=== PATIENT | male | born 1935 ===

== ENCOUNTER 2017-01-29 10:07 | Emergency (ER) | payer MEDICARE ==
[2017-01-29 10:40] VITALS: BP 142/84; PULSE 78; RESP 20; TEMP 98.4
[2017-01-29] MEDS ORDERED: Albuterol-Ipratrop 3 mg / 0.5 (3 ml) UD INH STA (10:49)
--- NOTE | 2017-01-29 10:54 | ED PDOC ---
HPI: General Adult Time Seen by Provider: 01/29/17 10:39 Chief Complaint (Nursing): Cough, Cold, Congestion History Per: Patient Additional Complaint(s): Pt. states for the past 3 weeks he's had difficulty breathing which he describes as trouble breathing through the nose. Pt. states that he's also had a cough but no fever or hemoptysis. Pt. states he's been using his albuterol nebulizer without relief. Denies chest pain, leg pain or swelling, hx of CHF/DVT /PE, sick contacts, recent travel, orthopnea, BROWNING. Past Medical History Reviewed: Historical Data, Nursing Documentation, Vital Signs Vital Signs: Last Vital Signs Temp 98.4 F 01/29/17 10:36 Pulse 78 01/29/17 12:41 Resp 20 01/29/17 10:36 BP 142/84 01/29/17 10:36 Pulse Ox 99 01/29/17 12:56 - Medical History PMH: HTN, Parkinson's Disease Denies: CHF, COPD - Surgical History Surgical History: No Surg Hx - Family History Family History: States: No Known Family Hx - Home Medications Home Medications: Ambulatory Orders Medication Instructions Recorded Bisoprolol [Zebeta] 5 mg PO DAILY 11/26/15 Carbidopa/Levodopa 25/100 mg 1 tab PO TID 11/26/15 [Sinemet] Naproxen 500 mg PO BID #30 tab 11/26/15 hydroCHLOROthiazide [Hydrodiuril] 25 mg PO DAILY 11/26/15 Albuterol HFA [Ventolin HFA 90 2 puff IH [id number] PRN #60 puff 01/29/17 mcg/actuation (8 g)] Fluticasone Propionate [Flonase] 2 spr NS DAILY PRN #1 bottle 01/29/17 Methylprednisolone [Medrol Dose 4 mg PO DAILY #21 mg 01/29/17 Pack (21 tabs)] - Allergies Allergies/Adverse Reactions: Allergies Allergy/AdvReac Type Severity Reaction Status Date / Time No Known Allergies Allergy Verified 11/26/15 12:27 Review of Systems ROS Statement: Except As Marked, All Systems Reviewed And Found Negative ENT: Positive for: Nose Congestion Respiratory: Positive for: Cough, Wheezing Physical Exam - Physical Exam Appears: Positive for: Well, Non-toxic, No Acute Distress Skin: Positive for: Normal Color, Warm. Negative for: Rash Eye Exam: Positive for: EOMI, Normal appearance, PERRL ENT: Positive for: Normal ENT Inspection, Nasal Congestion. Negative for: Sinus Pain/Drainage, Pharyngeal Erythema, Tonsillar Exudate, Tonsillar Swelling Neck: Positive for: Normal, Painless ROM Cardiovascular/Chest: Positive for: Regular Rate, Rhythm Respiratory: Positive for: Wheezing (b/l expiratory wheezing). Negative for: Decreased Breath Sounds, Accessory Muscle Use, Crackles, Rales, Rhonchi, Respiratory Distress Gastrointestinal/Abdominal: Positive for: Normal Exam, Soft. Negative for: Tenderness Back: Positive for: Normal Inspection. Negative for: L CVA Tenderness, R CVA Tenderness Extremity: Positive for: Other (diffuse tremors noted). Negative for: Pedal Edema, Calf Tenderness (or swelling b/l) Neurologic/Psych: Positive for: Alert, Oriented. Negative for: Aphasia, Facial Droop - Laboratory Results Result Diagrams: 01/29/17 11:10 01/29/17 11:10 - ECG ECG: Positive for: Interpreted By Me ECG Rhythm: Positive for: Sinus Rhythm. Negative for: ST/T Changes Rate: 78 O2 Sat by Pulse Oximetry: 100 - Radiology X-Ray: Interpreted by Me (CXR) X-Ray Interpretation: No Acute Disease - Progress ED Course And Treament: Labs ordered. DuoNeb x 3, solu-medrol 125mg IV given. 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 Re-evaluation Time: 12:38 (Reports good relief of dyspnea. Lungs clear b/l. Pt.' s daughter, [place], at bedside whos states pt. has been sneezing and c/o itchy eyes since the nasal congestion started and has not had any cough nor has he c/ o chest pain. Denies chest pain. ) Condition: Re-examined, Improved Disposition - Clinical Impression Clinical Impression: Allergic rhinitis, Bronchospasm, acute - Patient ED Disposition Is Patient to be Admitted: No - Disposition Referrals: [facility] [Outside] Disposition: Routine/Home Disposition Time: 12:40 Condition: IMPROVED Prescriptions: Albuterol HFA [Ventolin HFA 90 mcg/actuation (8 g)] 2 puff IH [id number] PRN #60 puff PRN Reason: Wheezing Fluticasone Propionate [Flonase] 2 spr NS DAILY PRN #1 bottle PRN Reason: Allergy Symptoms Methylprednisolone [Medrol Dose Pack (21 tabs)] 4 mg PO DAILY #21 mg Instructions: Allergic Rhinitis (ED), Bronchospasm (ED) Print Language: KYRGYZ
[2017-01-29] MEDS ORDERED: Albuterol-Ipratrop 3 mg / 0.5 (3 ml) UD ONE (11:18)
[2017-01-29 11:30] LABS: BASO % 0.3 % (0.0-2.0); EOS # 1.6 K/uL (0.0-0.7); EOS % 14.6 % (0.0-4.0); HEMATOCRIT 41.8 % (35.0-51.0); LYMPH # 1.6 K/uL (1.0-4.3); LYMPH % 14.2 % (20.0-40.0); MEAN CELL VOLUME 94.5 fl (80.0-94.0); MEAN CORPUSCULAR HEMOGLOBIN 31.7 pg (27.0-31.0); MEAN CORPUSCULAR HGB CONC 33.5 g/dL (33.0-37.0); MEAN PLATELET VOLUME 8.4 fl (7.2-11.7); MONO # 0.9 K/uL (0.0-0.8); NEUT # 6.9 K/uL (1.8-7.0); NEUT % 62.9 % (50.0-75.0); NRBC % 0.2 % (0.0-0.0); RED CELL DISTRIBUTION WIDTH 14.2 % (11.5-14.5)
[2017-01-29 11:43] LABS: ALB/GLOB RATIO 1.1 (1.0-2.1); ALKALINE PHOSPHATASE 79 U/L (38-126); ALT/SGPT 20 U/L (21-72); AST/SGOT 45 U/L (17-59); BILIRUBIN,TOTAL 0.8 mg/dl (0.2-1.3); BLOOD UREA NITROGEN 19 mg/dl (9-20); CALCIUM 9.4 mg/dL (8.4-10.2); CARBON DIOXIDE 25 mmol/L (22-30); CHLORIDE 104 mmol/L (98-107); GFR AFRICAN-AMERICAN > 60; GLUCOSE,RANDOM 134 mg/dL (75-110); POTASSIUM 4.2 MMOL/L (3.6-5.0); SODIUM 140 mmol/l (132-148); TOTAL PROTEIN 8.3 G/DL (6.3-8.2)
--- NOTE | 2017-01-29 11:53 | RAD ---
HISTORY: cough COMPARISON: Comparison chest dated 12/01/2012. TECHNIQUE: Chest PA and lateral FINDINGS: LUNGS: Poor inspiration with low lung volumes, mild crowded bronchovascular markings and mild bibasilar atelectasis. Mild biapical pleural thickening. PLEURA: No significant pleural effusion identified. No pneumothorax apparent. CARDIOVASCULAR: Heart size is borderline/ mildly enlarged with ectatic uncoiled aorta OSSEOUS STRUCTURES: Degenerative changes both shoulder girdles. Mild multilevel degenerative spondylosis of the thoracic spine VISUALIZED UPPER ABDOMEN: Normal. OTHER FINDINGS: None. IMPRESSION: Poor inspiration with low lung volumes, mild crowded bronchovascular markings and mild bibasilar atelectasis. Mild biapical pleural thickening.
[2017-01-29 13:20] VITALS: O2SAT 100
== END 2017-01-29 12:45 | disposition home or self-care (01) ==
LOC: H.ER 10:07
DX: J30.9 Allergic rhinitis, unspecified (principal); J98.01 Acute bronchospasm; R05 Cough; G20 Parkinson's disease; I10 Essential (primary) hypertension; R91.8 Other nonspecific abnormal finding of lung field
CPT/HCPCS: 71020; 80053; 83880; 84484; 85025; 87804; 94150; 94640; 96374; 99283; J2930

== ENCOUNTER 2017-02-27 14:41 | Emergency (ER) | payer MEDICARE ==
[2017-02-27 14:57] VITALS: TEMP 97.9
[2017-02-27] MEDS ORDERED: Albuterol-Ipratrop 3 mg / 0.5 (3 ml) UD IH STA (15:28)
--- NOTE | 2017-02-27 15:32 | ED PDOC ---
HPI: CCC, URI, Sore Throat Time Seen by Provider: 02/27/17 14:55 Chief Complaint (Nursing): Chest Pain Additional Complaint(s): 82M c/o productive cough, occasional yellow sputum, and nasal congestion for 2 weeks with some occasional sob. he says he was seen here recently for same sx and given meds but doesn't feel he is getting better. no fever or chest pain. he says he smoke for 5 years but quit 15 years ago. pmh htn and parkinson. denies other sig pmh. Past Medical History Vital Signs: Last Vital Signs Temp 97.9 F 02/27/17 14:56 Pulse 62 02/27/17 17:30 Resp 20 02/27/17 17:30 BP 149/76 02/27/17 17:30 Pulse Ox 97 02/27/17 17:44 - Medical History PMH: HTN, Parkinson's Disease Denies: CHF, COPD - Family History Family History: States: Other - Home Medications Home Medications: Ambulatory Orders Medication Instructions Recorded Bisoprolol [Zebeta] 5 mg PO DAILY 11/26/15 Carbidopa/Levodopa 25/100 mg 1 tab PO TID 11/26/15 [Sinemet] Naproxen 500 mg PO BID #30 tab 11/26/15 hydroCHLOROthiazide [Hydrodiuril] 25 mg PO DAILY 11/26/15 Albuterol HFA [Ventolin HFA 90 2 puff IH [id number] PRN #60 puff 01/29/17 mcg/actuation (8 g)] Fluticasone Propionate [Flonase] 2 spr NS DAILY PRN #1 bottle 01/29/17 Methylprednisolone [Medrol Dose 4 mg PO DAILY #21 mg 01/29/17 Pack (21 tabs)] Fluticasone Nasal [Flonase] 1 spr NS DAILY PRN #1 bottle 02/27/17 Prednisone [Deltasone] 40 mg PO DAILY #8 tablet 02/27/17 levoFLOXacin [Levaquin] 750 mg PO DAILY #5 tab 02/27/17 - Allergies Allergies/Adverse Reactions: Allergies Allergy/AdvReac Type Severity Reaction Status Date / Time No Known Allergies Allergy Verified 11/26/15 12:27 Review of Systems Constitutional: Negative for: Fever, Chills, Malaise Cardiovascular: Negative for: Chest Pain Respiratory: Positive for: Cough, Shortness of Breath, Sputum, Wheezing. Negative for: Hemoptysis Gastrointestinal: Negative for: Nausea, Vomiting, Abdominal Pain Physical Exam - Physical Exam Appears: Positive for: Well, Non-toxic, No Acute Distress Head Exam: Positive for: ATRAUMATIC Skin: Positive for: Warm, Dry Eye Exam: Positive for: EOMI, PERRL Neck: Positive for: Painless ROM Cardiovascular/Chest: Positive for: Regular Rate, Rhythm. Negative for: Edema Respiratory: Positive for: Wheezing. Negative for: Decreased Breath Sounds, Accessory Muscle Use, Crackles, Rales, Rhonchi, Stridor, Respiratory Distress Gastrointestinal/Abdominal: Positive for: Soft. Negative for: Tenderness Extremity: Negative for: Calf Tenderness, Swelling Neurologic/Psych: Positive for: Alert, Oriented. Negative for: Motor/Sensory Deficits - ECG O2 Sat by Pulse Oximetry: 97 Medical Decision Making Medical Decision Making: ecg- nsr 74, nl axis, nl int, no acute ischemia cxr- nad the pt appears well, no distress, mild scattered wheezes only, nl spo2 on RA disc w pt plan for abx, steroids, nasal steroids, pcp follow up, return if worse he v/u and agrees w plan Disposition - Clinical Impression Clinical Impression: Bronchitis - Disposition Disposition: Routine/Home Disposition Time: 17:43 Condition: STABLE Additional Instructions: Please follow up in the clinic this week. Return to the ER for any worsening symptoms or for any other concerns. Prescriptions: Fluticasone Nasal [Flonase] 1 spr NS DAILY PRN #1 bottle PRN Reason: Nasal Congestion levoFLOXacin [Levaquin] 750 mg PO DAILY #5 tab Prednisone [Deltasone] 40 mg PO DAILY #8 tablet
[2017-02-27 17:37] VITALS: BP 149/76; PULSE 62; RESP 20
[2017-02-27 17:44] VITALS: O2SAT 97
--- NOTE | 2017-02-27 18:32 | RAD ---
HISTORY: sob cough COMPARISON: Comparison chest 01/29/2017 TECHNIQUE: Chest PA and lateral FINDINGS: LUNGS: Minimal bibasilar atelectasis. PLEURA: No significant pleural effusion identified. No pneumothorax apparent. CARDIOVASCULAR: Normal. OSSEOUS STRUCTURES: Minor degenerative spondylosis of the thoracic spine VISUALIZED UPPER ABDOMEN: Normal. OTHER FINDINGS: None. IMPRESSION: Minimal bibasilar atelectasis.
--- NOTE | 2017-02-28 19:23 | CARD ---
APPROVED REPORT EKG Measurement Heart [id number] OR 160P7 [id number] <Conclusion> Normal sinus rhythm Voltage criteria for left ventricular hypertrophy Abnormal ECG
== END 2017-02-27 17:53 | disposition home or self-care (01) ==
LOC: H.ER 14:41
DX: J20.9 Acute bronchitis, unspecified (principal); G20 Parkinson's disease; I10 Essential (primary) hypertension

== ENCOUNTER 2017-03-20 13:24 | Inpatient (IN) | payer MEDICARE ==
[2017-03-20] MEDS ORDERED: Sodium Chloride 0.9% 1,000 ML IV STA (13:50)
[2017-03-20 14:05] LABS: BASO % 0.2 % (0.0-2.0); EOS # 0.2 K/uL (0.0-0.7); HEMOGLOBIN 14.9 g/dL (12.0-18.0); LYMPH # 2.2 K/uL (1.0-4.3); LYMPH % 11.6 % (20.0-40.0); MEAN CELL VOLUME 94.5 fl (80.0-94.0); MEAN CORPUSCULAR HEMOGLOBIN 31.8 pg (27.0-31.0); MEAN CORPUSCULAR HGB CONC 33.6 g/dL (33.0-37.0); MEAN PLATELET VOLUME 9.5 fl (7.2-11.7); MONO # 2.3 K/uL (0.0-0.8); MONO % 12.5 % (0.0-10.0); NEUT % 74.7 % (50.0-75.0); NRBC % 0.1 % (0.0-0.0); RBC 4.69 Mil/uL (4.40-5.90); RED CELL DISTRIBUTION WIDTH 13.6 % (11.5-14.5)
--- NOTE | 2017-03-20 14:05 | ED PDOC ---
HPI: General Adult Time Seen by Provider: 03/20/17 13:41 Chief Complaint (Nursing): Respiratory Distress Chief Complaint (Provider): Whole body shaking History Per: Patient History/Exam Limitations: other Onset/Duration Of Symptoms: Days (x 2) Current Symptoms Are (Timing): Still Present Additional History Per: Family (Daughter) Additional Complaint(s): Lyle Alexis is an 82 y/o male with a past medical history of hypertension, asthma, and Parkinsons disease, who was brought to the emergency department via EMS for complaints of increased whole body shaking, constant for the past 2 days. His dosage of pramipexole was increased on by his neurologist, Dr. Phillips. Patient is accompanied by his daughter. At baseline, patient is self -sufficient, walks independently, and oriented x3. PMD: Hunter Acosta Neurology: Dr. Phillips Past Medical History Reviewed: Historical Data, Nursing Documentation, Vital Signs Vital Signs: Last Vital Signs Temp 101.2 F H 03/20/17 14:10 Pulse 87 03/20/17 14:10 Resp 21 03/20/17 14:21 BP Pulse Ox 100 03/20/17 16:23 - Medical History PMH: Asthma, HTN, Parkinson's Disease Denies: CHF, COPD - Surgical History Surgical History: No Surg Hx - Family History Family History: States: Unknown Family Hx - Social History Ex-Smoker (has not smoked in the last 12 months): Yes Alcohol: Occasional Drugs: Denies - Home Medications Home Medications: Ambulatory Orders Medication Instructions Recorded Bisoprolol [Zebeta] 5 mg PO DAILY 11/26/15 Carbidopa/Levodopa 25/100 mg 1 tab PO TID 11/26/15 [Sinemet] Naproxen 500 mg PO BID #30 tab 11/26/15 hydroCHLOROthiazide [Hydrodiuril] 25 mg PO DAILY 11/26/15 Albuterol HFA [Ventolin HFA 90 2 puff IH [id number] PRN #60 puff 01/29/17 mcg/actuation (8 g)] Fluticasone Propionate [Flonase] 2 spr NS DAILY PRN #1 bottle 01/29/17 Methylprednisolone [Medrol Dose 4 mg PO DAILY #21 mg 01/29/17 Pack (21 tabs)] Fluticasone Nasal [Flonase] 1 spr NS DAILY PRN #1 bottle 02/27/17 Prednisone [Deltasone] 40 mg PO DAILY #8 tablet 02/27/17 levoFLOXacin [Levaquin] 750 mg PO DAILY #5 tab 02/27/17 - Allergies Allergies/Adverse Reactions: Allergies Allergy/AdvReac Type Severity Reaction Status Date / Time No Known Allergies Allergy Verified 11/26/15 12:27 Review of Systems ROS Statement: Except As Marked, All Systems Reviewed And Found Negative Cardiovascular: Positive for: Chest Pain Neurological: Positive for: Other (Constant whole body shaking) Physical Exam - Reviewed Nursing Documentation Reviewed: Yes Vital Signs Reviewed: Yes - Physical Exam Appears: Positive for: Non-toxic, No Acute Distress Head Exam: Positive for: ATRAUMATIC, NORMAL INSPECTION, NORMOCEPHALIC Skin: Positive for: Normal Color, Warm, Dry Eye Exam: Positive for: Normal appearance Neck: Positive for: Normal, Painless ROM, Supple Cardiovascular/Chest: Positive for: Tachycardia (Regular rhythm) Respiratory: Positive for: Normal Breath Sounds (Clear bilaterally) Back: Positive for: Normal Inspection. Negative for: Vertebral Tenderness Extremity: Positive for: Normal ROM, Other (Purposeless movement of all four extremities) Neurologic/Psych: Positive for: Alert (and awake) - Laboratory Results Result Diagrams: 03/20/17 13:49 03/20/17 13:49 - ECG O2 Sat by Pulse Oximetry: 100 (RA) Pulse Ox Interpretation: Normal Medical Decision Making Medical Decision Making: Time: 13:49 Initial Plan: --Labs --CXR --EKG --Pending Head CT --NS IV 1000 ml at 1000 mls/hr --Acetaminophen 650 mg PO --Patient given 4 mg of Ativan with good resolution of symptoms --As he is felt to be febrile, will work up for sepsis Time: 14:24 Chest X-Ray: LUNGS: No focal consolidation. Please note that chest x-ray has limited sensitivity for the detection of pulmonary masses. PLEURA: No significant pleural effusion identified. No definite pneumothorax . CARDIOVASCULAR: Heart size appears top normal. Ectatic aorta. OSSEOUS STRUCTURES: Degenerative changes of the spine. VISUALIZED UPPER ABDOMEN: Unremarkable. OTHER FINDINGS: None. IMPRESSION: No focal consolidation, significant pleural effusion, or definite pneumothorax identified. Time: 15:[address]: FINDINGS: HEMORRHAGE: No intracranial hemorrhage. BRAIN: Diffuse atrophy with prominence of the ventricles and sulci noted. No mass effect or edema. Scattered periventricular and subcortical white matter hypodensities, which are nonspecific, but often seen with chronic microvascular ischemic disease. Please note that MRI with diffusion imaging is more sensitive in the detection of acute ischemic event. VENTRICLES: No hydrocephalus. CALVARIUM: Unremarkable. PARANASAL SINUSES: Mucosal thickening of the ethmoid air cells and right greater than left maxillary sinuses. No air-fluid levels evident. MASTOID AIR CELLS: Unremarkable as visualized. No inflammatory changes. OTHER FINDINGS: None. IMPRESSION: Atrophy. Nonspecific white matter changes. Mucosal thickening of ethmoid air cells and right greater than left maxillary sinuses. No air-fluid levels identified. Time: 15:00 --Acetaminophen 650 mg PO --Vancomycin 1gm/250 ml NS IV --Zovirax 500 mg IV --VBG shock panel --Glucose, CSF --CSF Culture --Total protein, CSF --Cell count/diff, CSF --Herpes simplex 1/2 --CSF VDRL Time: 15:00 --Patient will be signed out to Dr. Mark Christiansen MD, pending blood work and CSF results Scribe Attestation: Documented by Ximena Nation, acting as a scribe for Judy Holbrook MD Provider Scribe Attestation: All medical record entries made by the Scribe were at my direction and personally dictated by me. I have reviewed the chart and agree that the record accurately reflects my personal performance of the history, physical exam, medical decision making, and the department course for this patient. I have also personally directed, reviewed, and agree with the discharge instructions and disposition. - Lumbar Puncture Procedure LP Procedure: Discussed Procedure W/Pt, Consent Form Completed, Use Of Sterile Technique Position for Procedure: Sitting Injection Location: L 4-5 (with 1% Lido. Tried lying position but did not work. Sitting position was done and miminal fluids was noted. Patient tolerated procedure well.)
[2017-03-20 14:10] LABS: WHITE BLOOD COUNT 18.7 K/uL (4.8-10.8)
[2017-03-20 14:17] LABS: VENOUS BLOOD GAS BASE EXCESS -1.8 mmol/L (0.0-2.0); VENOUS BLOOD GAS PCO2 42 mmHg (40-60); VENOUS BLOOD GAS PO2 62 mm/Hg (30-55); VENOUS BLOOD PH 7.36 (7.32-7.43)
--- NOTE | 2017-03-20 14:26 | RAD ---
HISTORY: Parkinsons COMPARISON: Chest x-ray performed 02/27/17 TECHNIQUE: Chest, one view. FINDINGS: LUNGS: No focal consolidation. Please note that chest x-ray has limited sensitivity for the detection of pulmonary masses. PLEURA: No significant pleural effusion identified. No definite pneumothorax . CARDIOVASCULAR: Heart size appears top normal. Ectatic aorta. OSSEOUS STRUCTURES: Degenerative changes of the spine. VISUALIZED UPPER ABDOMEN: Unremarkable. OTHER FINDINGS: None. IMPRESSION: No focal consolidation, significant pleural effusion, or definite pneumothorax identified.
[2017-03-20 14:30] LABS: INR 1.1 (0.9-1.2); PARTIAL THROMBOPLASTIN TIME 29.1 Seconds (25.6-37.1); PROTHROMBIN TIME 12.2 Seconds (9.8-13.1)
[2017-03-20 14:43] LABS: URINE BILIRUBIN NEGATIVE (NEGATIVE); URINE CLARITY SLIGHT-CLOUDY (Clear); URINE COLOR YELLOW (YELLOW); URINE GLUCOSE (UA) NEGATIVE (Normal)
[2017-03-20 14:44] LABS: SQUAMOUS EPITHIAL 1 /hpf (0-5); URINE BLOOD LARGE (NEGATIVE); URINE LEUKOCYTE ESTERASE NEGATIVE Leu/uL (Negative); URINE NITRATE NEGATIVE (NEGATIVE); URINE PROTEIN 100 mg/dL (NEGATIVE); URINE UROBILINOGEN 0.2 mg/dL (0.2-1.0)
[2017-03-20 14:45] LABS: RENAL EPITHELIAL < 1 /hpf (0-3); URINE HYALINE CAST >20 /hpf (0-2)
[2017-03-20 14:46] LABS: ALB/GLOB RATIO 1.2 (1.0-2.1); ALBUMIN 5.1 g/dL (3.5-5.0); CALCIUM 9.4 mg/dL (8.4-10.2)
--- NOTE | 2017-03-20 15:03 | CT ---
PROCEDURE: CT HEAD WITHOUT CONTRAST. HISTORY: Parksinson COMPARISON: None available. TECHNIQUE: Axial computed tomography images were obtained through the head/brain without intravenous contrast. Radiation dose: Total exam DLP = 1465.36 mGy-cm. This CT exam was performed using one or more of the following dose reduction techniques: Automated exposure control, adjustment of the mA and/or kV according to patient size, and/or use of iterative reconstruction technique. FINDINGS: HEMORRHAGE: No intracranial hemorrhage. BRAIN: Diffuse atrophy with prominence of the ventricles and sulci noted. No mass effect or edema. Scattered periventricular and subcortical white matter hypodensities, which are nonspecific, but often seen with chronic microvascular ischemic disease. Please note that MRI with diffusion imaging is more sensitive in the detection of acute ischemic event. VENTRICLES: No hydrocephalus. CALVARIUM: Unremarkable. PARANASAL SINUSES: Mucosal thickening of the ethmoid air cells and right greater than left maxillary sinuses. No air-fluid levels evident. MASTOID AIR CELLS: Unremarkable as visualized. No inflammatory changes. OTHER FINDINGS: None. IMPRESSION: Atrophy. Nonspecific white matter changes. Mucosal thickening of ethmoid air cells and right greater than left maxillary sinuses. No air-fluid levels identified.
[2017-03-20] MEDS ORDERED: cefTRIAXone 2 GM in Sodium Chloride 0.9% 100 ML IVPB STA (15:06)
[2017-03-20] MEDS ORDERED: Vancomycin 1 g Inj ONE (15:12)
[2017-03-20] MEDS ORDERED: Lidocaine 1% Inj (20ml) ONE (15:15)
--- NOTE | 2017-03-20 15:54 | ED PDOC ---
- Laboratory Results Result Diagrams: 03/20/17 13:49 03/20/17 13:49 Interpretation Of Abn Labs: 18.7 wbc, 2.7 lactate, elevated bun/cr - ECG O2 Sat by Pulse Oximetry: 100 (RA) Pulse Ox Interpretation: Normal Medical Decision Making Medical Decision Making: Time: 15:00 --Patient is signed out from Dr. Judy Holbrook to wa, pending blood work and CSF results. Pt. here with worsening Parkinsons. Found to have fever and no other source, so LP performed. 1708: Stable. Alert. Dr. Pizarro at bedside and evaluated pt. He will put in further orders as needed. Spoke [facility] resident. Will admit tele. Severe sepsis. Disposition - Clinical Impression Clinical Impression: Renal insufficiency, Severe sepsis, Meningitis - POA Present On Arrival: None - Disposition Disposition: Admitted as In-Patient Disposition Time: 17:00 Condition: SERIOUS
[2017-03-20 16:45] LABS: FLUID TYPE SPINAL FLUID
--- NOTE | 2017-03-20 17:13 | CP.PCM.CON ---
History of Present Illness - History of Present Illness History of Present Illness: change in mental status non compliant with sinemet admitted with fever and increased tone Past Patient History - Infectious Disease Hx of Infectious Diseases: None - Past Social History Alcohol: Occasional Drugs: Denies - CARDIAC Hx Congestive Heart Failure: No Hx Hypertension: Yes - PULMONARY Hx Asthma: Yes Hx Chronic Obstructive Pulmonary Disease (COPD): No - NEUROLOGICAL Hx Parkinson's Disease: Yes - PSYCHIATRIC Hx Substance Use: No - SURGICAL HISTORY Hx Surgeries: No - ANESTHESIA Hx Anesthesia: No Meds Allergies/Adverse Reactions: Allergies Allergy/AdvReac Type Severity Reaction Status Date / Time No Known Allergies Allergy Verified 11/26/15 12:27 - Medications Medications: Current Medications Bromocriptine Mesylate (Parlodel) 2.5 mg PO TID ALBERTO Carbidopa/Levodopa (Sinemet) 1 tab PO TID ALBERTO Dantrolene Sodium (Dantrium) 25 mg IV TID ALBERTO Results - Vital Signs Recent Vital Signs: Last Vital Signs Temp 101.2 F H 03/20/17 14:10 Pulse 71 03/20/17 16:10 Resp 18 03/20/17 16:10 BP 116/77 03/20/17 16:10 Pulse Ox 100 03/20/17 17:10 - Labs Result Diagrams: 03/20/17 13:49 03/20/17 13:49 Labs: Laboratory Results - last 24 hr 03/20/17 03/20/17 03/20/17 13:49 13:49 13:49 WBC 18.7 H D RBC 4.69 Hgb 14.9 Hct 44.4 MCV 94.5 H MCH 31.8 H MCHC 33.6 RDW 13.6 Plt Count 249 MPV 9.5 Neut % (Auto) 74.7 Lymph % (Auto) 11.6 L [place]more % (Auto) 12.5 H Eos % (Auto) 1.0 Baso % (Auto) 0.2 Neut # 14.0 H Lymph # 2.2 Elmore # 2.3 H Eos # 0.2 Baso # 0.0 PT 12.2 INR 1.1 APTT 29.1 pO2 VBG pH VBG pCO2 VBG HCO3 VBG Total CO2 VBG O2 Sat (Calc) VBG Base Excess VBG Potassium Glucose Lactate FiO2 Sodium 139 Potassium 4.7 Chloride 102 Carbon Dioxide 18 L Anion Gap 24 H BUN 79 H Creatinine 2.1 H Est GFR ( Amer) 37 Est GFR (Non-Af Amer) 31 Random Glucose 119 H Calcium 9.4 Total Bilirubin 2.3 H AST 546 H D ALT 55 Alkaline Phosphatase 101 Total Creatine Kinase 55253 H Total Protein 9.2 H Albumin 5.1 H Globulin 4.2 H Albumin/Globulin Ratio 1.2 Venous Blood Potassium Urine Color Urine Clarity Urine pH Ur Specific Valentines Urine Protein Urine Glucose (UA) Urine Ketones Urine Blood Urine Nitrate Urine Bilirubin Urine Urobilinogen Ur Leukocyte Esterase Urine RBC (Auto) Urine Microscopic WBC Ur Squamous Epith Cells Ur Renal Epithelial Cell Hyaline Casts Fluid Type 03/20/17 03/20/17 03/20/17 14:10 14:20 16:40 WBC RBC Hgb Hct MCV MCH MCHC RDW Plt Count MPV Neut % (Auto) Lymph % (Auto) Elmore % (Auto) Eos % (Auto) Baso % (Auto) Neut # Lymph # Elmore # Eos # Baso # PT INR APTT pO2 62 H VBG pH 7.36 VBG pCO2 42 VBG HCO3 23.3 VBG Total CO2 25.0 VBG O2 Sat (Calc) 92.7 H VBG Base Excess -1.8 L VBG Potassium 3.0 L Glucose 112 H Lactate 2.7 H FiO2 21.0 Sodium 139.0 Potassium Chloride 100.0 Carbon Dioxide Anion Gap BUN Creatinine Est GFR ( Amer) Est GFR (Non-Af Amer) Random Glucose Calcium Total Bilirubin AST ALT Alkaline Phosphatase Total Creatine Kinase Total Protein Albumin Globulin Albumin/Globulin Ratio Venous Blood Potassium 3.0 L Urine Color Yellow Urine Clarity Slight-cloudy Urine pH 6.0 Ur Specific Valentines 1.016 Urine Protein 100 Urine Glucose (UA) Negative Urine Ketones Trace H Urine Blood Large Urine Nitrate Negative Urine Bilirubin Negative Urine Urobilinogen 0.2 Ur Leukocyte Esterase Negative Urine RBC (Auto) 7 H Urine Microscopic WBC 2 Ur Squamous Epith Cells 1 Ur Renal Epithelial Cell < 1 Hyaline Casts >20 H Fluid Type Spinal fluid Assessment & Plan (1) Neuroleptic malignant syndrome Assessment and Plan: consult dictated hydration dantrium and bromocriptin ngt for sinemet antibiotic as per id eeg Status: Acute Priority: High - Date & Time Date: 03/20/17 Time: 17:13
[2017-03-20] MEDS: Carbidopa/Levodopa 25/250 PO SCH (17:48)
[2017-03-20 18:02] LABS: CSF APPEARANCE BLOODY (CLEAR)
[2017-03-20 18:03] LABS: CSF VOLUME 1 mL (0-1)
[2017-03-20 18:04] LABS: CSF MONO/MACROPHAGE 5 % (0-0)
[2017-03-20 18:14] LABS: VENOUS BLOOD GAS BASE EXCESS -2.6 mmol/L (0.0-2.0); VENOUS BLOOD GAS PCO2 43 mmHg (40-60); VENOUS BLOOD GAS PO2 49 mm/Hg (30-55); VENOUS BLOOD PH 7.34 (7.32-7.43)
--- NOTE | 2017-03-20 19:51 | CP.PCM.HP ---
History of Present Illness - History of Present Illness History of Present Illness: 82 yo ,m, PMhx/o HTN, Asthma, Parkinson Disease was brought to ED by EMS accompanies by his daugher who reports patient started with uncontrolled generalized tremor of the whole body started 5 days ago and worse during the last 2 days, associated with diaphoresis, back pain yesterday and headache today. His dosage of pramipexole was increased on by his neurologist, Dr. Phillips. At baseline, patient is self-sufficient, walks independently, and oriented x3. Patient's daughter denies fever, nasal congestion, cough, dysuria, sick contact. PMD: Dr Blanca PMhx:HTN, Asthma, Parkinson Disease Allergies: NKDA Meds: Bisoprolol, Fluticasone, Albuterol, Pramipexole Er 2.25 BID PSurgHx: none PShx: +Etoh occs, neg rect drugs, cig. Ed course VS: Temp: 101.2 F LAbs: 18.7>14.9/44/4<249 139/4.7/102/18/79/2.1/119 Radiology Chest X-Ray: LUNGS:No focal consolidation, significant pleural effusion, or definite pneumothorax identified. LP: CSF:bloddy, WBC 101 CSF RBC 50101 Total prot >600 Glucose 73 Meds: NS IV 1000 ml at 1000 mls/hr -Acetaminophen 650 mg PO -Patient given 4 mg of Ativan with good resolution of symptoms -Vancomycin 1gm/250 ml NS IV -Zovirax 500 mg IV Neuro consult consult appreciated:hydration,dantrium, bromocriptin,ngt for sinemet, eeg Present on Admission - Present on Admission Any Indicators Present on Admission: No History of DVT/PE: No History of Uncontrolled Diabetes: No Urinary Catheter: No Decubitus Ulcer Present: No Review of Systems - EENT Eyes: As Per HPI - Cardiovascular Cardiovascular: As Per HPI - Respiratory Respiratory: As Per HPI, Wheezing - Gastrointestinal Gastrointestinal: As Per HPI - Genitourinary Genitourinary: As Per HPI - Musculoskeletal Musculoskeletal: As Per HPI Past Patient History - Infectious Disease Hx of Infectious Diseases: None - Past Social History Alcohol: Occasional Drugs: Denies - CARDIAC Hx Congestive Heart Failure: No Hx Hypertension: Yes - PULMONARY Hx Asthma: Yes Hx Chronic Obstructive Pulmonary Disease (COPD): No - NEUROLOGICAL Hx Parkinson's Disease: Yes - PSYCHIATRIC Hx Substance Use: No - SURGICAL HISTORY Hx Surgeries: No - ANESTHESIA Hx Anesthesia: No Meds Allergies/Adverse Reactions: Allergies Allergy/AdvReac Type Severity Reaction Status Date / Time No Known Allergies Allergy Verified 11/26/15 12:27 Physical Exam - Constitutional Appears: Agitated - Head Exam Head Exam: ATRAUMATIC, NORMOCEPHALIC - Eye Exam Eye Exam: Normal appearance - Respiratory Exam Respiratory Exam: Clear to Auscultation Bilateral. absent: Rales, Wheezes - Cardiovascular Exam Cardiovascular Exam: REGULAR RHYTHM, +S1, +S2 - GI/Abdominal Exam GI & Abdominal Exam: Normal Bowel Sounds, Soft. absent: Tenderness - Extremities Exam Extremities exam: Positive for: full ROM. Negative for: pedal edema - Neurological Exam Neurological exam: Alert, Altered - Skin Skin Exam: Intact Results - Vital Signs Recent Vital Signs: Last Vital Signs Temp 97.6 F 03/20/17 16:30 Pulse 79 03/20/17 19:25 Resp 19 03/20/17 19:25 BP 110/73 03/20/17 19:25 Pulse Ox 99 03/20/17 19:25 - Labs Result Diagrams: 03/20/17 13:49 03/20/17 13:49 Labs: Laboratory Results - last 24 hr 03/20/17 03/20/17 17:56 18:05 pO2 49 VBG pH 7.34 VBG pCO2 43 VBG HCO3 22.5 VBG Total CO2 24.5 VBG O2 Sat (Calc) 84.4 H VBG Base Excess -2.6 L VBG Potassium 3.4 L Sodium 140.0 Chloride 103.0 Glucose 116 H Lactate 1.7 FiO2 21.0 Total Creatine Kinase 84385 H Venous Blood Potassium 3.4 L Assessment & Plan - Assessment and Plan (Free Text) Plan: Assessment/Plan 82 yo ,m, PMhx/o HTN, Asthma, Parkinson Disease was brought to ED by EMS accompanies by his daugher who reports patient started with uncontrolled generalized tremor of the whole body started 5 days ago and worse during the last 2 days, associated wiht diaphoresis, back pain yesterday and headache today 1) Neuroleptic Malignant syndrome -Uncontrolled Parkinson disease -New change of meds, Pramipexole 2.25 mg ER BID. probable withdrawal of cinamet -Neuro consult appreciated:hydration,dantrium, bromocriptin,ngt for sinemet, eeg -Admit ICU -Hydration 125 ml/h -dantrolen 75 mg IV TID -cinamet 1 tab TID -bromocriptine 2.5 PO TID 2) Viral meningitis LP: CSF:bloddy, WBC 101 CSF RBC 51161 Total prot >600 Glucose 73 Acyclovir 3) Sepsis secondary to meningitis -SIRS + source of infection meningitis -Temp: 101.2, HR103, RR 22 3) JH secondary to rhabdomyolysis Bun/Cr 79/2.1 -hydration NS 125 ml/h -f/u urine cr, lytes urine -CPK 8am and 14:00 5) HTN controlled.hold home meds Bisoprolol 6) Asthma -controlled Duoneb q6h PRN 7) DVT Prophylaxis -JH -Heparin 5000 sc Q12h
[2017-03-20] MEDS: STERILE WATER IV SCH (19:58)
[2017-03-20] MEDS: DANTROLENE IV SCH (19:58)
[2017-03-20] MEDS ORDERED: cefTRIAXone 2 GM in Sodium Chloride 0.9% 100 ML IVPB SCH (21:00)
[2017-03-20] MEDS: cefTRIAXone 2 GM in Dextrose 5% In Water 100 ML IVPB SCH (21:29)
--- NOTE | 2017-03-20 22:45 | CP.PCM.CON ---
History of Present Illness - History of Present Illness History of Present Illness: Reason for transfer to ICU: Viral meningitis, AMS This is an 82 y/o male with HTN, asthma, and Parkinson's disease (non compliant with medications) who was admitted from ER earlier today due to fever, SALDAÑA, and increasing body shaking as well as AMS. He had an LP and was diagnosed with viral meningitis, and was started on acyclovir IV as well as empirically started on Ampicillin and Ceftriaxone. Neurology wanted him closely observed in ICU. Patient has no c/c at this time. On physical exam, only significant finding is that patient is continuing to have shaking/writhing movements. A/P: Continue current mgmt; only addition is that patient with elevated CK and elevated BUN/Cr. Concern for ARF due to rhabdo. Would hydrate aggressively. Also obtain serial CK levels. Also obtain Ulytes, U creatinine. Past Patient History - Infectious Disease Hx of Infectious Diseases: None - Past Social History Alcohol: Occasional Drugs: Denies - CARDIAC Hx Congestive Heart Failure: No Hx Hypertension: Yes - PULMONARY Hx Asthma: Yes Hx Chronic Obstructive Pulmonary Disease (COPD): No - NEUROLOGICAL Hx Parkinson's Disease: Yes - PSYCHIATRIC Hx Substance Use: No - SURGICAL HISTORY Hx Surgeries: No - ANESTHESIA Hx Anesthesia: No Meds Allergies/Adverse Reactions: Allergies Allergy/AdvReac Type Severity Reaction Status Date / Time No Known Allergies Allergy Verified 11/26/15 12:27 - Medications Medications: Current Medications Bromocriptine Mesylate (Parlodel) 2.5 mg PO TID [facility] Carbidopa/Levodopa (Sinemet) 1 tab PO TID [facility] Last Admin: 03/20/17 17:48 Dose: 1 tab Dantrolene Sodium 25 mg/ (Sterile Water) 75 mls @ 75 mls/hr IV TID [facility] Last Admin: 03/20/17 19:58 Dose: 75 mls/hr Acyclovir 500 mg/ Sodium (Chloride) 100 mls @ 100 mls/hr IVPB Q8 ALBERTO Ampicillin 2 gm/ Sodium (Chloride) 100 mls @ 100 mls/hr IVPB Q6 ALBERTO Vancomycin HCl 1 gm/ Sodium (Chloride) 250 mls @ 166.667 mls/hr IVPB Q12 ALBERTO Ceftriaxone Sodium 2 gm/ (Dextrose) 100 mls @ 100 mls/hr IVPB Q12H [facility] Last Admin: 03/20/17 21:29 Dose: Not Given Sodium Chloride (Sodium Chloride 0.9%) 1,000 mls @ 125 mls/hr IV .Q8H ALBERTO Stop: 03/21/17 22:33 Results - Vital Signs Recent Vital Signs: Last Vital Signs Temp 97.5 F L 03/20/17 20:10 Pulse 66 03/20/17 20:10 Resp 18 03/20/17 20:10 BP 109/66 03/20/17 20:10 Pulse Ox 94 L 03/20/17 20:10 - Labs Result Diagrams: 03/20/17 13:49 03/20/17 13:49 Labs: Laboratory Results - last 24 hr 03/20/17 03/20/17 03/20/17 17:56 17:56 18:05 pO2 49 VBG pH 7.34 VBG pCO2 43 VBG HCO3 22.5 VBG Total CO2 24.5 VBG O2 Sat (Calc) 84.4 H VBG Base Excess -2.6 L VBG Potassium 3.4 L Sodium 140.0 Chloride 103.0 Glucose 116 H Lactate 1.7 FiO2 21.0 Total Creatine Kinase 50534 H Vitamin B12 840 Venous Blood Potassium 3.4 L
[2017-03-20] MEDS: Ampicillin 2 GM in Sodium Chloride 0.9% 100 ML IVPB SCH (22:46)
[2017-03-20] MEDS: Sodium Chloride 0.9% 1,000 ML IV SCH (22:46)
[2017-03-21] MEDS: Acyclovir 500 MG in Sodium Chloride 0.9% 100 ML IVPB SCH ×3 (00:55→17:45)
--- NOTE | 2017-03-21 03:28 | CON ---
DATE: 03/20/2017 REASON FOR THE CONSULTATION: Fevers and change in mental status. CHIEF COMPLAINT: The patient was brought into the [facility] with change in mental status. At the time of neurology evaluation, I was called for further management. HISTORY OF PRESENT ILLNESS: Mr. Lyle Alexis is an 82-year-old right-handed male being diagnosed with Parkinson's disease, been on Sinemet. He has been taking B12 injection every other day as a scheduled manner in the clinic. At the time he was evaluated in the clinic, his neuro status was unbearable and he was consulted through the phone by his neurologist and his medication was adjusted. However, though the medication is adjusted as per his daughter's statement, he is not on medication and taking regularly. Due to the condition of his fever and change in mental status, the patient did have a spinal tap after the CAT scan in the emergency room. At present, he is sedated. However, he is arousable and noxious stimulation. He knows the year and he knows he is in the hospital. He follows one-step command. PAST MEDICAL HISTORY: Asthma, Parkinson disease, and hypertension. PERSONAL HISTORY: Denies smoking or alcohol use. MEDICATION: He is suppose to take Sinemet and pramipexole for his Parkinson disease. PHYSICAL EXAMINATION VITAL SIGNS: Blood pressure 116/77, mean artery pressure of 90, respiratory rate 16, temperature afebrile. NECK: Supple. No carotid bruits. HEART: Sounds are regular. CHEST: Fair air entry. EXTREMITIES: Tone increased. Cogwheel rigidity also noted. On waking up, the patient shows dystonic posturing noted. NEUROLOGIC AND MENTAL STATUS EXAMINATION: He is sedated, arousable, on calling his name by his daughter and noxious stimuli. Appropriate grimacing noted and response noted on his noxious stimuli. Eyes are closed on force by opening. Significant blepharospasm. People constricted, good cognitive effects and conjugate gaze noted. Mouth is dry. MOTOR: Tone increased in all four extremities. Deep tendon reflexes are 2+ in the both upper extremities. Both knees are absent and both ankles are absent. plantars are negative response on both sides. COORDINATION: Gait deferred. Neck is voluntarily guarding, some evidence of wooden ski sign as well as cunning sign noted. CONCLUSION: Upon reviewing his neurological examination, Lyle Grimes has been presenting with non-Parkinson disease, non-complaint with the Sinemet, presenting with the dystonic posturing, change in mental status with fever, consistent with neuroleptic malignant syndrome unless otherwise approved. However, other possible caused of infectious source of meningoencephalitis should be ruled out. LABORATORY DATA: WBC 18.7, hemoglobin 14.9, hematocrit 44.4. Lymphocytes 11.6, monocytes 12.5, neutrophils 14.0. PT 12.2, INR 1.1, PTT 29.1. Sodium 139, potassium 4.7, chloride 102, bicarbonate 18, BUN 79, creatinine 2.1. GFR 37, glucose of 119, CPK 14,560. Urine ketone trace. CSF analysis being done and the results are pending. RECOMMENDATION: 1. The patient should be hydrated well. 2. Dantrium and bromocriptine is started. 3. The patient should continue his neuro status. The patient should be on NG placed for Sinemet administration. 4. Antibiotic as per ID. 5. The patient should have urine for myoglobinuria and CPK should be repeated. The patient should haveEEG to rule out paroxysmal activities that can be done tomorrow. The patient will be followed closely with you. The patient should be kept in ICU monitoring and kept on strict input and output measurement. . Colt Pizarro MD MTDD
[2017-03-21] MEDS: Ampicillin 2 GM in Sodium Chloride 0.9% 100 ML IVPB SCH ×3 (04:08→20:09)
[2017-03-21 05:27] LABS: MEAN CELL VOLUME 94.1 fl (80.0-94.0); MEAN CORPUSCULAR HEMOGLOBIN 32.3 pg (27.0-31.0); MEAN CORPUSCULAR HGB CONC 34.4 g/dL (33.0-37.0); RBC 4.02 Mil/uL (4.40-5.90); RED CELL DISTRIBUTION WIDTH 13.6 % (11.5-14.5); WHITE BLOOD COUNT 12.5 K/uL (4.8-10.8)
[2017-03-21 05:50] LABS: ALB/GLOB RATIO 1.2 (1.0-2.1); ALBUMIN 3.9 g/dL (3.5-5.0); CALCIUM 8.5 mg/dL (8.4-10.2)
--- NOTE | 2017-03-21 07:56 | CARD ---
APPROVED REPORT EKG Measurement Heart [id number] <Conclusion> Normal sinus rhythm Voltage criteria for left ventricular hypertrophy Nonspecific T wave abnormality Prolonged QT Abnormal ECG
[2017-03-21] MEDS: Carbidopa/Levodopa 25/250 PO SCH ×2 (08:58→13:36)
[2017-03-21] MEDS: cefTRIAXone 2 GM in Dextrose 5% In Water 100 ML IVPB SCH ×2 (08:59→21:44)
--- NOTE | 2017-03-21 09:33 | CP.CCUPN ---
CCU Subjective - Physician Review Events Since Last Encounter (Free Text): 03/21/17 17:12 89 Years old Male who is the ICU for management of Viral meningitis and Neuroleptic Malignant Syndrome Doing better today however still experiencing jerky movements of extremities. Alert, awake, oriented x 3. Afebrile Comfortable, No sign of respiratory distress. Seen and evaluated by CHIEF GROWTH OFFICER, started on finely chopped diet with thins diet. Scheduled for EEG On IVF 0.9% NS at 125 ml/hr, Renal function improving 76/2.162/1.4 CCU Objective - Vital Signs / Intake & Output Vital Signs (Last 4 hours): Vital Signs Temp Pulse Resp BP Pulse Ox 03/21/17 08:00 98.9 F 75 17 134/77 99 - Physical Exam Head: Positive for: Atraumatic, Normocephalic Pupils: Positive for: PERRL. Negative for: Sluggish, Non-Reactive Extroacular Muscles: Positive for: EOMI. Negative for: Gaze Palsy, Entrapment Conjunctiva: Positive for: Normal. Negative for: Injected, Icteric Ears: Positive for: Normal Mouth: Positive for: Moist Mucous Membranes Pharnyx: Positive for: Normal. Negative for: ERYTHEMA Neck: Positive for: Normal Range of Motion, Trachea Midline. Negative for: Meningeal Signs, MIDLINE TENDERNESS, Paraspinal Tenderness, JVD, Lymphadenopathy , Bruit, Other Respiratory/Chest: Positive for: Clear to Auscultation, Good Air Exchange. Negative for: Respiratory Distress, Accessory Muscle Use, Wheezes, Rales, Rhonchi Cardiovascular: Positive for: Regular Rate and Rhythm, Normal S1, S2, Peripheal Pulses Present. Negative for: Murmurs, Irregular Rhythm Abdomen: Positive for: Normal Bowel Sounds. Negative for: Tenderness, Distention, Peritoneal Signs, Rebound, Guarding Upper Extremity: Positive for: Normal Inspection, Normal ROM, NORMAL PULSES. Negative for: Cyanosis, Edema, Tenderness, Swelling, Erythema Lower Extremity: Positive for: NORMAL PULSES, Erythema (discoloration on lower extremities). Negative for: Edema, CALF TENDERNESS, Cyanosis Neurological: Positive for: GCS=15, CN II-XII Intact, Speech Normal, Motor Func Grossly Intact, Normal Sensory Function Psychiatric: Positive for: Alert, Oriented x 3, Normal Insight, Normal Concentration, Normal Affect - Medications Active Medications: Active Medications Generic Name Dose Route Start Last Admin Trade Name Freq PRN Reason Stop Dose Admin Bromocriptine Mesylate 2.5 mg 03/21/17 09:00 Parlodel PO TID ALBERTO Carbidopa/Levodopa 1 tab 03/20/17 17:00 03/21/17 08:58 Sinemet PO 1 tab TID ALBERTO Administration Heparin Sodium (Porcine) 5,000 units 03/21/17 09:00 03/21/17 08:57 Heparin SC 5,000 units Q12 ALBERTO Administration Protocol Dantrolene Sodium 25 mg/ 75 mls @ 75 mls/hr 03/20/17 19:00 03/20/17 19:58 Sterile Water IV 75 mls/hr TID ALBERTO Administration Acyclovir 500 mg/ Sodium 100 mls @ 100 mls/hr 03/21/17 01:00 03/21/17 00:55 Chloride IVPB 100 mls/hr Q8 ALBERTO Administration Ampicillin 2 gm/ Sodium 100 mls @ 100 mls/hr 03/20/17 22:00 03/21/17 04:08 Chloride IVPB 100 mls/hr Q6 ALBERTO Administration Ceftriaxone Sodium 2 gm/ 100 mls @ 100 mls/hr 03/20/17 21:30 03/21/17 08:59 Dextrose IVPB 100 mls/hr Q12H ALBERTO Administration Sodium Chloride 1,000 mls @ 125 mls/hr 03/20/17 22:45 03/20/17 22:46 Sodium Chloride 0.9% IV 03/21/17 22:33 125 mls/hr .Q8H ALBERTO Administration Vancomycin HCl 1 gm/ Sodium 250 mls @ 166.667 mls/hr 03/21/17 03:00 03/21/17 04:07 Chloride IVPB 166.667 mls/hr Q12@0300,1500 ALBERTO Administration - Patient Studies Lab Studies: Lab Studies 03/21/17 03/21/17 03/20/17 Range/Units 04:25 04:25 22:30 WBC 12.5 H (4.8-10.8) K/uL RBC 4.02 L (4.40-5.90) Mil/uL Hgb 13.0 (12.0-18.0) g/dL Hct 37.8 (35.0-51.0) % MCV 94.1 H (80.0-94.0) fl MCH 32.3 H (27.0-31.0) pg MCHC 34.4 (33.0-37.0) g/dL RDW 13.6 (11.5-14.5) % Plt Count 174 (130-400) K/uL pO2 (30-55) mm/Hg VBG pH (7.32-7.43) VBG pCO2 (40-60) mmHg VBG HCO3 mmol/L VBG Total CO2 (22-28) mmol/L VBG O2 Sat (Calc) (40-65) % VBG Base Excess (0.0-2.0) mmol/L VBG Potassium (3.6-5.2) mmol/L Sodium 144 (132-148) mmol/L Chloride 108 H (98-107) mmol/L Glucose (75-110) mg/dL Lactate (0.7-2.1) mmol/L FiO2 % Potassium 3.4 L (3.6-5.0) MMOL/L Carbon Dioxide 22 (22-30) mmol/L Anion Gap 17 (10-20) BUN 62 H (9-20) mg/dl Creatinine 1.4 (0.8-1.5) mg/dL Est GFR ( Amer) 59 Est GFR (Non-Af Amer) 49 Random Glucose 106 (75-110) mg/dL Calcium 8.5 (8.4-10.2) mg/dL Total Bilirubin 1.0 (0.2-1.3) mg/dl AST 323 H D (17-59) U/L ALT 87 H D (21-72) U/L Alkaline Phosphatase 76 (38-126) U/L Total Creatine Kinase (55-170) U/L Total Protein 7.1 (6.3-8.2) G/DL Albumin 3.9 (3.5-5.0) g/dL Globulin 3.2 (2.2-3.9) gm/dL Albumin/Globulin Ratio 1.2 (1.0-2.1) Vitamin B12 (239-931) pg/mL Venous Blood Potassium (3.6-5.2) mmol/L Ur Random Creatinine mg/dL Ur Random Sodium 70 meq/L Ur Random Potassium 28.8 mmol/L 03/20/17 03/20/17 03/20/17 Range/Units 22:30 18:05 17:56 WBC (4.8-10.8) K/uL RBC (4.40-5.90) Mil/uL Hgb (12.0-18.0) g/dL Hct (35.0-51.0) % MCV (80.0-94.0) fl MCH (27.0-31.0) pg MCHC (33.0-37.0) g/dL RDW (11.5-14.5) % Plt Count (130-400) K/uL pO2 49 (30-55) mm/Hg VBG pH 7.34 (7.32-7.43) VBG pCO2 43 (40-60) mmHg VBG HCO3 22.5 mmol/L VBG Total CO2 24.5 (22-28) mmol/L VBG O2 Sat (Calc) 84.4 H (40-65) % VBG Base Excess -2.6 L (0.0-2.0) mmol/L VBG Potassium 3.4 L (3.6-5.2) mmol/L Sodium 140.0 (132-148) mmol/L Chloride 103.0 (98-107) mmol/L Glucose 116 H (75-110) mg/dL Lactate 1.7 (0.7-2.1) mmol/L FiO2 21.0 % Potassium (3.6-5.0) MMOL/L Carbon Dioxide (22-30) mmol/L Anion Gap (10-20) BUN (9-20) mg/dl Creatinine (0.8-1.5) mg/dL Est GFR ( Amer) Est GFR (Non-Af Amer) Random Glucose (75-110) mg/dL Calcium (8.4-10.2) mg/dL Total Bilirubin (0.2-1.3) mg/dl AST (17-59) U/L ALT (21-72) U/L Alkaline Phosphatase (38-126) U/L Total Creatine Kinase 76629 H (55-170) U/L Total Protein (6.3-8.2) G/DL Albumin (3.5-5.0) g/dL Globulin (2.2-3.9) gm/dL Albumin/Globulin Ratio (1.0-2.1) Vitamin B12 (239-931) pg/mL Venous Blood Potassium 3.4 L (3.6-5.2) mmol/L Ur Random Creatinine 70.8 mg/dL Ur Random Sodium meq/L Ur Random Potassium mmol/L 03/20/17 Range/Units 17:56 WBC (4.8-10.8) K/uL RBC (4.40-5.90) Mil/uL Hgb (12.0-18.0) g/dL Hct (35.0-51.0) % MCV (80.0-94.0) fl MCH (27.0-31.0) pg MCHC (33.0-37.0) g/dL RDW (11.5-14.5) % Plt Count (130-400) K/uL pO2 (30-55) mm/Hg VBG pH (7.32-7.43) VBG pCO2 (40-60) mmHg VBG HCO3 mmol/L VBG Total CO2 (22-28) mmol/L VBG O2 Sat (Calc) (40-65) % VBG Base Excess (0.0-2.0) mmol/L VBG Potassium (3.6-5.2) mmol/L Sodium (132-148) mmol/L Chloride (98-107) mmol/L Glucose (75-110) mg/dL Lactate (0.7-2.1) mmol/L FiO2 % Potassium (3.6-5.0) MMOL/L Carbon Dioxide (22-30) mmol/L Anion Gap (10-20) BUN (9-20) mg/dl Creatinine (0.8-1.5) mg/dL Est GFR ( Amer) Est GFR (Non-Af Amer) Random Glucose (75-110) mg/dL Calcium (8.4-10.2) mg/dL Total Bilirubin (0.2-1.3) mg/dl AST (17-59) U/L ALT (21-72) U/L Alkaline Phosphatase (38-126) U/L Total Creatine Kinase (55-170) U/L Total Protein (6.3-8.2) G/DL Albumin (3.5-5.0) g/dL Globulin (2.2-3.9) gm/dL Albumin/Globulin Ratio (1.0-2.1) Vitamin B12 840 (239-931) pg/mL Venous Blood Potassium (3.6-5.2) mmol/L Ur Random Creatinine mg/dL Ur Random Sodium meq/L Ur Random Potassium mmol/L Laboratory Results - last 24 hr 03/20/17 03/20/17 03/20/17 17:56 17:56 18:05 WBC RBC Hgb Hct MCV MCH MCHC RDW Plt Count pO2 49 VBG pH 7.34 VBG pCO2 43 VBG HCO3 22.5 VBG Total CO2 24.5 VBG O2 Sat (Calc) 84.4 H VBG Base Excess -2.6 L VBG Potassium 3.4 L Sodium 140.0 Chloride 103.0 Glucose 116 H Lactate 1.7 FiO2 21.0 Potassium Carbon Dioxide Anion Gap BUN Creatinine Est GFR ( Amer) Est GFR (Non-Af Amer) Random Glucose Calcium Total Bilirubin AST ALT Alkaline Phosphatase Total Creatine Kinase 42523 H Total Protein Albumin Globulin Albumin/Globulin Ratio Vitamin B12 840 Venous Blood Potassium 3.4 L Ur Random Creatinine Ur Random Sodium Ur Random Potassium 03/20/17 03/20/17 03/21/17 22:30 22:30 04:25 WBC 12.5 H RBC 4.02 L Hgb 13.0 Hct 37.8 MCV 94.1 H MCH 32.3 H MCHC 34.4 RDW 13.6 Plt Count 174 pO2 VBG pH VBG pCO2 VBG HCO3 VBG Total CO2 VBG O2 Sat (Calc) VBG Base Excess VBG Potassium Sodium Chloride Glucose Lactate FiO2 Potassium Carbon Dioxide Anion Gap BUN Creatinine Est GFR ( Amer) Est GFR (Non-Af Amer) Random Glucose Calcium Total Bilirubin AST ALT Alkaline Phosphatase Total Creatine Kinase Total Protein Albumin Globulin Albumin/Globulin Ratio Vitamin B12 Venous Blood Potassium Ur Random Creatinine 70.8 Ur Random Sodium 70 Ur Random Potassium 28.8 03/21/17 04:25 WBC RBC Hgb Hct MCV MCH MCHC RDW Plt Count pO2 VBG pH VBG pCO2 VBG HCO3 VBG Total CO2 VBG O2 Sat (Calc) VBG Base Excess VBG Potassium Sodium 144 Chloride 108 H Glucose Lactate FiO2 Potassium 3.4 L Carbon Dioxide 22 Anion Gap 17 BUN 62 H Creatinine 1.4 Est GFR ( Amer) 59 Est GFR (Non-Af Amer) 49 Random Glucose 106 Calcium 8.5 Total Bilirubin 1.0 AST 323 H D ALT 87 H D Alkaline Phosphatase 76 Total Creatine Kinase Total Protein 7.1 Albumin 3.9 Globulin 3.2 Albumin/Globulin Ratio 1.2 Vitamin B12 Venous Blood Potassium Ur Random Creatinine Ur Random Sodium Ur Random Potassium Fingerstick Blood Sugar Results: 138 Review of Systems - Cardiovascular Cardiovascular: absent: Chest Pain, Chest Pain at Rest, Chest Pain with Activity , Claudication, Diaphoresis - Respiratory Respiratory: absent: Cough, Dyspnea, Hemoptysis, Dyspnea on Exertion, Wheezing - Neurological Neurological: Abnormal Movements (improved), Headaches (improved) Critical Care Progress Note - Extremities/Vascular Does the Patient have a Central Venous Catheter?: No Does the Patient need a Central Venous Catheter?: No Does the Patient have a Ramsey Catheter?: No Does the Patient need a Ramsey Catheter?: No Assessment/Plan (1) Meningitis Current Visit: Yes Status: Acute Comment: Continue Ampicillin, Ceftriaxone, Vancomycin and Acyclovir 500 mg IVPB Q8 (2) Neuroleptic malignant syndrome Current Visit: Yes Status: Acute Priority: High Comment: IV hydration 0.9% NS at 125 ml/hr Continue Dantrolene, Carbidopa/Levodopa and bromocriptine 2.5mg PO TID (3) Renal insufficiency Current Visit: Yes Status: Acute (4) Severe sepsis Current Visit: Yes Status: Acute Comment: Renal function improving, Continue IV hydration (5) Prophylactic measure Current Visit: Yes Status: Acute
[2017-03-21] MEDS: DANTROLENE IV SCH (10:32)
[2017-03-21] MEDS: STERILE WATER IV SCH (10:32)
--- NOTE | 2017-03-21 10:36 | CP.PCM.PN ---
Subjective - Date & Time of Evaluation Date of Evaluation: 03/21/17 Time of Evaluation: 09:30 - Subjective Subjective: Patient was seen and examined at bedside, alert, oriented, still experiencing jerky movements of extremities, but states that the severity of movements, headache and back pain have improved since last night. States that his daughter usually helps him with his medication. No family was present at bedside at this time. Objective - Vital Signs/Intake and Output Vital Signs (last 24 hours): Temp Pulse Resp BP Pulse Ox 98.9 F 75 17 134/77 99 03/21/17 08:00 03/21/17 08:00 03/21/17 08:00 03/21/17 08:00 03/21/17 08:00 - Medications Medications: Current Medications Bromocriptine Mesylate (Parlodel) 2.5 mg PO TID [facility] Carbidopa/Levodopa (Sinemet) 1 tab PO TID [facility] Last Admin: 03/21/17 08:58 Dose: 1 tab Heparin Sodium (Porcine) (Heparin) 5,000 units SC Q12 [facility] PRN Reason: Protocol Last Admin: 03/21/17 08:57 Dose: 5,000 units Dantrolene Sodium 25 mg/ (Sterile Water) 75 mls @ 75 mls/hr IV TID [facility] Last Admin: 03/20/17 19:58 Dose: 75 mls/hr Acyclovir 500 mg/ Sodium (Chloride) 100 mls @ 100 mls/hr IVPB Q8 [facility] Last Admin: 03/21/17 00:55 Dose: 100 mls/hr Ampicillin 2 gm/ Sodium (Chloride) 100 mls @ 100 mls/hr IVPB Q6 [facility] Last Admin: 03/21/17 04:08 Dose: 100 mls/hr Ceftriaxone Sodium 2 gm/ (Dextrose) 100 mls @ 100 mls/hr IVPB Q12H [facility] Last Admin: 03/21/17 08:59 Dose: 100 mls/hr Sodium Chloride (Sodium Chloride 0.9%) 1,000 mls @ 125 mls/hr IV .Q8H [facility] Stop: 03/21/17 22:33 Last Admin: 03/20/17 22:46 Dose: 125 mls/hr Vancomycin HCl 1 gm/ Sodium (Chloride) 250 mls @ 166.667 mls/hr IVPB Q12@0300, 1500 [facility] Last Admin: 03/21/17 04:07 Dose: 166.667 mls/hr - Labs Labs: 03/21/17 04:25 03/21/17 04:25 PT 12.2 Seconds (9.8-13.1) 03/20/17 13:49 INR 1.1 (0.9-1.2) 03/20/17 13:49 APTT 29.1 Seconds (25.6-37.1) 03/20/17 13:49 - Constitutional Appears: Non-toxic - Head Exam Head Exam: ATRAUMATIC - Eye Exam Eye Exam: Normal appearance - ENT Exam ENT Exam: Mucous Membranes Moist - Respiratory Exam Respiratory Exam: Clear to Ausculation Bilateral, NORMAL BREATHING PATTERN. absent: Rales, Rhonchi, Wheezes - Cardiovascular Exam Cardiovascular Exam: REGULAR RHYTHM, +S1, +S2 - GI/Abdominal Exam GI & Abdominal Exam: Soft, Normal Bowel Sounds. absent: Distended, Guarding, Tenderness - Extremities Exam Extremities Exam: Normal Capillary Refill. absent: Calf Tenderness, Pedal Edema , Tenderness Additional comments: light colored discoloration on lower extremities, nontender, nonerythematous - Neurological Exam Neurological Exam: Alert, Awake, Oriented x3 - Skin Skin Exam: Dry, Normal Color, Warm Assessment and Plan - Assessment and Plan (Free Text) Assessment: 82 yo M with PMH of Parkinson's Disease, HTN, asthma admitted to ICU, found to have viral meningitis and neuroleptic malignant syndrome after being brought in by EMS due to pt's daughter's report of uncontrolled generalized tremors of whole body x5 days, worsening over 2 days prior to admission, accompanied by diaphoresis, back pain and headache. Symptoms have improved. Plan: 1) Neuroleptic Malignant Syndrome -Uncontrolled Parkinson disease -As per neuro, probable withdrawal of Sinamet, which he is inconsistent with as per daughter in ED -On outpt basis, new med was added: pramipexole 2.25 mg ER BID, but unknown whether pt has been taking it -Neuro consult appreciated: hydration, dantrium, bromocriptine, EEG -Continue hydration NS @ 125 mL/h -Continue Dantrolene 75 mL IV TID -Carbidopa/Levodopa (Sinemet) 1 tab TID -Continue bromocriptine 2.5mg PO TID -f/u EEG 2) Viral meningitis -LP (03/30/17): CSF: bloody, WBC: 101, CSF RBC: 49726, total protein >600, glucose: 73 -CSF Gram stain: no organisms seen -CSF culture: no growth at this time -Acyclovir as per ID, consult appreciated 3) Sepsis -Secondary to meningitis -SIRS + source of infection meningitis -WBC down to 12.5 from 18.7 -f/u CBC -Continue Ampicillin -Continue Ceftriaxone -Continue Vancomycin -Temp: 98.9, HR 75, RR 17 3) JH -Secondary to rhabdomyolysis -Bun/Cr improving; 62/1.4 this morning, from 79/2.1 -Continue hydration NS 125 ml/h -f/u Bun/Cr -CPK 8am was 7846, down from 38498 -CPK scheduled for 14:00 as well 5) HTN -Controlled; 8 am 134/77 -Hold home meds Bisoprolol 6) Asthma -Controlled -Duoneb Q6h PRN 7) DVT Prophylaxis -Heparin 5000 sc Q12h
--- NOTE | 2017-03-21 11:09 | CP.PCM.CON ---
History of Present Illness - History of Present Illness History of Present Illness: ID CONSULTED FOR MENINGITIS 82 yo ,m, PMhx/o HTN, Asthma, Parkinson Disease was brought to ED by EMS accompanies by his daughter who reports patient started with uncontrolled generalized tremor of the whole body started 5 days ago and worse during the last 2 days, associated with diaphoresis, back pain yesterday and headache today. At baseline, patient is self-sufficient, walks independently, and oriented x3. Patient's daughter denies fever, nasal congestion, cough, dysuria, sick contact. PMhx:HTN, Asthma, Parkinson Disease Allergies: NKDA Meds: Bisoprolol, Fluticasone, Albuterol, Pramipexole Er 2.25 BID PSurgHx: none PShx: +Etoh occs, Review of Systems - Review of Systems Systems not reviewed;Unavailable: Acuity of Condition, Language Barrier All systems: reviewed and no additional remarkable complaints except - Constitutional Constitutional: As Per HPI - EENT Eyes: absent: As Per HPI, Blind Spots, Blurred Vision, Change in Vision, Decreased Night Vision, Diplopia, Discharge, Dry Eye, Exophthalmos, Floaters, Irritation, Itchy Eyes, Loss of Peripheral Vision, Pain, Photophobia, Requires Corrective Lenses, Sees Flashes, Spots in Vision, Tunnel Vision, Other Visual Disturbances, Loss of Vision, Other Ears: absent: As Per HPI, Decreased Hearing, Ear Discharge, Ear Pain, Tinnitus, Abnormal Hearing, Disequilibrium, Dizziness, Other Nose/Mouth/Throat: absent: As Per HPI, Epistaxis, Nasal Congestion, Nasal Discharge, Nasal Obstruction, Nasal Trauma, Nose Pain, Post Nasal Drip, Sinus Pain, Sinus Pressure, Bleeding Gums, Change in Voice, Dental Pain, Dry Mouth, Dysphagia, Halitosis, Hoarsness, Lip Swelling, Mouth Lesions, Mouth Pain, Odynophagia, Sore Throat, Throat Swelling, Tongue Swelling, Facial Pain, Neck Pain, Neck Mass, Other - Cardiovascular Cardiovascular: absent: As Per HPI, Acrocyanosis, Chest Pain, Chest Pain at Rest , Chest Pain with Activity, Claudication, Diaphoresis, Dyspnea, Dyspnea on Exertion, Edema, Irregular Heart Rhythm, Pain Radiating to Arm/Neck/Jaw, Leg Edema, Leg Ulcers, Lightheadedness, Orthopnea, Palpitations, Paroxysmal Nocturnal Dyspnea, Pedal Edema, Radiating Pain, Rapid Heart Rate, Slow Heart Rate, Syncope, Other - Respiratory Respiratory: absent: As Per HPI, Cough, Dyspnea, Hemoptysis, Dyspnea on Exertion , Wheezing, Snoring, Stridor, Pain on Inspiration, Chest Congestion, Excessive Mucous Production, Change in Mucous Color, Pain with Coughing, Other - Gastrointestinal Gastrointestinal: absent: As Per HPI, Abdominal Pain, Belching, Bloating, Change in Bowel Habits, Change in Stool Character, Coffee Ground Emesis, Constipation, Cramping, Diarrhea, Dyspepsia, Dysphagia, Early Satiety, Excessive Flatus, Fecal Incontinence, Heartburn, Hematemesis, Hematochezia, Loose Stools, Melena, Nausea, Odynophagia, Temesmus, Vomiting, Other - Genitourinary Genitourinary: absent: As Per HPI, Change in Urinary Stream, Difficulty Urinating, Dysuria, Flank Pain, Hematuria, Pyuria, Nocturia, Urinary Incontinence, Urinary Frequency, Urinary Hesitance, Urinary Urgency, Voiding Freq/Small Amts, Freq UTI, Hx Renal/Bladder Calculi, Hx /Renal Surgery, Bladder Distension, Other - Musculoskeletal Musculoskeletal: absent: As Per HPI, Abnormal Gait, Arthralgias, Atrophy, Back Pain, Deformity, Joint Swelling, Limited Range of Motion, Loss of Height, Muscle Cramps, Muscle Weakness, Myalgias, Neck Pain, Numbness, Radiating Pain into Limb, Stiffness, Tingling, Other - Integumentary Integumentary: absent: As Per HPI, Acne, Alopecia, Bleeding Lesions, Change in Hair, Change in Nails, Change in Pigmentation, Changing Lesions, Dry Skin, Erythema, Furuncle, Hirsutism, Lesions, New Lesions, Non-Healing Lesions, Photosensitivity, Pruritus, Rash, Skin Pain, Skin Ulcer, Sores, Striae, Swelling , Unusual Bruising, Wounds, Jaundice, Other - Neurological Neurological: As Per HPI - Psychiatric Psychiatric: absent: As Per HPI, Abnormal Sleep Pattern, Anhedonia, Anxiety, Auditory Hallucinations, Behavioral Changes, Change in Appetite, Change in Libido, Confusion, Depression, Difficulty Concentrating, Hallucinations, Homicidal Ideation, Hopelessness, Irritability, Memory Loss, Mood Swings, Panic Attacks, Paranoia, Suicidal Ideation, Visual Hallucinations, Tactile Hallucinations, Other - Endocrine Endocrine: absent: As Per HPI, Change in Body Appearance, Change in Libido, Cold Intolorance, Deepening of Voice, Excessive Sweating, Fatigue, Flushing, Heat Intolorance, Increase in Ring/Shoe/Hat Size, Palpitations, Polydipsia, Polyphagia, Polyuria, Other - Hematologic/Lymphatic Hematologic: absent: As Per HPI, Easy Bleeding, Easy Bruising, Lymphadenopathy, Other Past Patient History - Infectious Disease Hx of Infectious Diseases: None - Past Medical History & Family History Past Medical History?: Yes - Past Social History Alcohol: Occasional Drugs: Denies - CARDIAC Hx Congestive Heart Failure: No Hx Hypertension: Yes - PULMONARY Hx Asthma: Yes Hx Chronic Obstructive Pulmonary Disease (COPD): No - NEUROLOGICAL Hx Parkinson's Disease: Yes - MUSCULOSKELETAL/RHEUMATOLOGICAL Hx Falls: No - PSYCHIATRIC Hx Substance Use: No - SURGICAL HISTORY Hx Surgeries: No - ANESTHESIA Hx Anesthesia: No Meds Allergies/Adverse Reactions: Allergies Allergy/AdvReac Type Severity Reaction Status Date / Time No Known Allergies Allergy Verified 11/26/15 12:27 - Medications Medications: Current Medications Bromocriptine Mesylate (Parlodel) 2.5 mg PO TID [facility] Last Admin: 03/21/17 10:33 Dose: 2.5 mg Carbidopa/Levodopa (Sinemet) 1 tab PO TID [facility] Last Admin: 03/21/17 08:58 Dose: 1 tab Heparin Sodium (Porcine) (Heparin) 5,000 units SC Q12 [facility] PRN Reason: Protocol Last Admin: 03/21/17 08:57 Dose: 5,000 units Dantrolene Sodium 25 mg/ (Sterile Water) 75 mls @ 75 mls/hr IV TID [facility] Last Admin: 03/21/17 10:32 Dose: 75 mls/hr Acyclovir 500 mg/ Sodium (Chloride) 100 mls @ 100 mls/hr IVPB Q8 [facility] Last Admin: 03/21/17 00:55 Dose: 100 mls/hr Ampicillin 2 gm/ Sodium (Chloride) 100 mls @ 100 mls/hr IVPB Q6 [facility] Last Admin: 03/21/17 04:08 Dose: 100 mls/hr Ceftriaxone Sodium 2 gm/ (Dextrose) 100 mls @ 100 mls/hr IVPB Q12H [facility] Last Admin: 03/21/17 08:59 Dose: 100 mls/hr Sodium Chloride (Sodium Chloride 0.9%) 1,000 mls @ 125 mls/hr IV .Q8H [facility] Stop: 03/21/17 22:33 Last Admin: 03/20/17 22:46 Dose: 125 mls/hr Vancomycin HCl 1 gm/ Sodium (Chloride) 250 mls @ 166.667 mls/hr IVPB Q12@0300, 1500 [facility] Last Admin: 03/21/17 04:07 Dose: 166.667 mls/hr Physical Exam - Constitutional Appears: No Acute Distress, Confused, Cachectic, Chronically Ill - Head Exam Head Exam: ATRAUMATIC, NORMAL INSPECTION, NORMOCEPHALIC - Eye Exam Eye Exam: PERRL. absent: Scleral icterus - ENT Exam ENT Exam: Mucous Membranes Dry, Normal External Ear Exam, Normal Oropharynx - Neck Exam Neck exam: Negative for: Lymphadenopathy, Thyromegaly - Respiratory Exam Respiratory Exam: Decreased Breath Sounds, Clear to Auscultation Bilateral - Cardiovascular Exam Cardiovascular Exam: Tachycardia, REGULAR RHYTHM, +S1, +S2 - GI/Abdominal Exam GI & Abdominal Exam: Diminished Bowel Sounds, Soft. absent: Tenderness - Rectal Exam Rectal Exam: Deferred - Exam Exam: NORMAL INSPECTION - Extremities Exam Extremities exam: Positive for: pedal pulses present. Negative for: calf tenderness, pedal edema, tenderness - Back Exam Back exam: absent: CVA tenderness (L), CVA tenderness (R), paraspinal tenderness - Neurological Exam Neurological exam: Alert, Altered, CN II-XII Intact - Psychiatric Exam Psychiatric exam: Depressed - Skin Skin Exam: Dry, Intact Results - Vital Signs Recent Vital Signs: Last Vital Signs Temp 98.9 F 03/21/17 08:00 Pulse 75 03/21/17 08:00 Resp 17 03/21/17 08:00 BP 134/77 03/21/17 08:00 Pulse Ox 99 03/21/17 08:00 - Labs Result Diagrams: 03/21/17 04:25 03/21/17 04:25 Labs: Laboratory Results - last 24 hr 03/20/17 03/20/17 03/20/17 17:56 17:56 18:05 WBC RBC Hgb Hct MCV MCH MCHC RDW Plt Count pO2 49 VBG pH 7.34 VBG pCO2 43 VBG HCO3 22.5 VBG Total CO2 24.5 VBG O2 Sat (Calc) 84.4 H VBG Base Excess -2.6 L VBG Potassium 3.4 L Sodium 140.0 Chloride 103.0 Glucose 116 H Lactate 1.7 FiO2 21.0 Potassium Carbon Dioxide Anion Gap BUN Creatinine Est GFR ( Amer) Est GFR (Non-Af Amer) Random Glucose Calcium Total Bilirubin AST ALT Alkaline Phosphatase Total Creatine Kinase 20177 H Total Protein Albumin Globulin Albumin/Globulin Ratio Vitamin B12 840 Venous Blood Potassium 3.4 L Ur Random Creatinine Ur Random Sodium Ur Random Potassium 03/20/17 03/20/17 03/21/17 22:30 22:30 04:25 WBC 12.5 H RBC 4.02 L Hgb 13.0 Hct 37.8 MCV 94.1 H MCH 32.3 H MCHC 34.4 RDW 13.6 Plt Count 174 pO2 VBG pH VBG pCO2 VBG HCO3 VBG Total CO2 VBG O2 Sat (Calc) VBG Base Excess VBG Potassium Sodium Chloride Glucose Lactate FiO2 Potassium Carbon Dioxide Anion Gap BUN Creatinine Est GFR ( Amer) Est GFR (Non-Af Amer) Random Glucose Calcium Total Bilirubin AST ALT Alkaline Phosphatase Total Creatine Kinase Total Protein Albumin Globulin Albumin/Globulin Ratio Vitamin B12 Venous Blood Potassium Ur Random Creatinine 70.8 Ur Random Sodium 70 Ur Random Potassium 28.8 03/21/17 03/21/17 04:25 08:34 WBC RBC Hgb Hct MCV MCH MCHC RDW Plt Count pO2 VBG pH VBG pCO2 VBG HCO3 VBG Total CO2 VBG O2 Sat (Calc) VBG Base Excess VBG Potassium Sodium 144 Chloride 108 H Glucose Lactate FiO2 Potassium 3.4 L Carbon Dioxide 22 Anion Gap 17 BUN 62 H Creatinine 1.4 Est GFR ( Amer) 59 Est GFR (Non-Af Amer) 49 Random Glucose 106 Calcium 8.5 Total Bilirubin 1.0 AST 323 H D ALT 87 H D Alkaline Phosphatase 76 Total Creatine Kinase 7846 H Total Protein 7.1 Albumin 3.9 Globulin 3.2 Albumin/Globulin Ratio 1.2 Vitamin B12 Venous Blood Potassium Ur Random Creatinine Ur Random Sodium Ur Random Potassium Assessment & Plan (1) Meningitis Status: Acute (2) Neuroleptic malignant syndrome Status: Acute Priority: High (3) Severe sepsis Status: Acute - Assessment and Plan (Free Text) Assessment: AWAIT CULTURES CONT IV ANTIBIOTICS MRI/ ECHO WHEN STABLE
--- NOTE | 2017-03-21 11:58 | RAD ---
HISTORY: ng eval COMPARISON: No prior. FINDINGS: BOWEL: Normal. No obstruction. No free air. Nasogastric tube seen in lower thorax coiled within distal esophagus extending back proximally within the esophagus. BONES: Normal. OTHER FINDINGS: None. IMPRESSION: Nasogastric tube coiled in distal esophagus. This should be repositioned or replaced. The findings in this examination were related to the patient's nurse, Anirudh, by telephone at 11:55 a.m. on 03/21/2017.
[2017-03-21] MEDS: Sodium Chloride 0.9% 1,000 ML IV SCH (16:00)
[2017-03-21] MEDS ORDERED: STERILE WATER IV SCH ×2 (20:00→21:00)
[2017-03-21] MEDS ORDERED: DANTROLENE IV SCH ×2 (20:00→21:00)
--- NOTE | 2017-03-21 21:55 | CP.PCM.PN ---
Subjective - Date & Time of Evaluation Date of Evaluation: 03/21/17 Time of Evaluation: 18:15 - Subjective Subjective: Mentation is stable PERSISIANT CHORIOTIC DYSTOINC POSTURING OF HEAD, ARMS AND LEGS. NO STIFFENSS, NO REGIDITY, NO RESTING TREMOR NO MASK FACE HIS PRESENTATION DOES NOT LOOK LIKE NEURO LEPTIC MELIGNANT SYNDROME AND START WITH PARKINSONS DISEASE HIS SYMPTOMS GOT WORSE ON SINEMENT AND ADDING PRAMIPEXOLE ? CARLOTA'S VS CAUDATE GANGLION DYSFUNCTION NO HX AVAILABLE ON HIS PHYSICHIATIRIC ISSUES DC DANTRIUM, PAROLODOL AND SINEMET HYDRATION AND CLOSE OBSERVATION HYDRATION AND FOLLOW CPK CONTINUE ANTIBIOTICS MRI BRAIN AM EEG TO BE DONE WELL. I WILL TRI D2 BLOCKERS IF MEDICALLY STABLE MAY BE TOMORROW Objective - Vital Signs/Intake and Output Vital Signs (last 24 hours): Temp Pulse Resp BP Pulse Ox 98.4 F 95 H 24 123/77 99 03/21/17 16:00 03/21/17 18:00 03/21/17 18:00 03/21/17 18:00 03/21/17 18:00 Intake and Output: 03/21/17 03/22/17 18:59 06:59 Intake Total 2400 Output Total 1300 Balance 1100 - Medications Medications: Current Medications Heparin Sodium (Porcine) (Heparin) 5,000 units SC Q12 [facility] PRN Reason: Protocol Last Admin: 03/21/17 21:43 Dose: 5,000 units Acyclovir 500 mg/ Sodium (Chloride) 100 mls @ 100 mls/hr IVPB Q8 [facility] Last Admin: 03/21/17 17:45 Dose: 100 mls/hr Ampicillin 2 gm/ Sodium (Chloride) 100 mls @ 100 mls/hr IVPB Q6 [facility] Last Admin: 03/21/17 20:09 Dose: 100 mls/hr Ceftriaxone Sodium 2 gm/ (Dextrose) 100 mls @ 100 mls/hr IVPB Q12H [facility] Last Admin: 03/21/17 21:44 Dose: 100 mls/hr Sodium Chloride (Sodium Chloride 0.9%) 1,000 mls @ 125 mls/hr IV .Q8H [facility] Stop: 03/21/17 22:33 Last Admin: 03/21/17 16:00 Dose: 125 mls/hr Vancomycin HCl 1 gm/ Sodium (Chloride) 250 mls @ 166.667 mls/hr IVPB Q12@0300, 1500 [facility] Last Admin: 03/21/17 15:15 Dose: 166.667 mls/hr Dantrolene Sodium 25 mg/ (Sterile Water) 75 mls @ 75 mls/hr IV TID [facility] Last Admin: 03/21/17 21:44 Dose: 75 mls/hr - Labs Labs: 03/21/17 04:25 03/21/17 04:25 PT 12.2 Seconds (9.8-13.1) 03/20/17 13:49 INR 1.1 (0.9-1.2) 03/20/17 13:49 APTT 29.1 Seconds (25.6-37.1) 03/20/17 13:49 Assessment and Plan (1) Neuroleptic malignant syndrome Status: Acute
[2017-03-22] MEDS: Ampicillin 2 GM in Sodium Chloride 0.9% 100 ML IVPB SCH ×5 (00:44→23:15)
[2017-03-22] MEDS: Acyclovir 500 MG in Sodium Chloride 0.9% 100 ML IVPB SCH ×3 (02:03→16:03)
--- NOTE | 2017-03-22 04:48 | PN ---
DATE: 03/21/2017 NEUROLOGICAL PROBLEMS: 1. Acute dystonia. 2. 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 PHYSICAL EXAMINATION: VITAL SIGNS: Blood pressure 123/77, mean arterial pressure of 92,. respiratory rate 20, pulse rate 95, temperature 98.4. The patient is awake. He knows he is in the hospital, I asked him what is the problem, he immediately says he does have Parkinson's disease. The patient has uncontrollable dystonia on both arms, legs and head movements noted, which is initiated by during attention. Speech is not hypophonic. Examination does not show resting tremor, no cogwheel rigidity. Tone is normal in all 4 extremities. Rest of the examination is unchanged. Initially thinking of history of known Parkinson disease, came in with noncompliance with Sinemet, I thought with temperature and change in mental status, possible neuroleptic malignant syndrome. The patient did not have temperature since the admission. His CPK, all related to his constant muscular movement. This also initiated with dehydration as well. This complicated with underlying possible infectious resource also. From my examination today, I doubt the patient does have Parkinson disease. 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 I would like to discontinue Sinemet, Dantrium and bromocriptine. The patient was given trial dose of Haldol to see observation with these medication. The patient is also scheduled to have an MRI of the brain to assess the caudate nucleus region. The patient may be given D2 blockers such as Risperdal and see his response. In the meantime, continue hydration and antibiotics as per Dr. Byrne. This patient will be followed closely with you. Colt Pizarro MD [facility]
[2017-03-22 05:16] LABS: BASO % 0.4 % (0.0-2.0); EOS # 0.8 K/uL (0.0-0.7); EOS % 8.3 % (0.0-4.0); HEMOGLOBIN 13.2 g/dL (12.0-18.0); LYMPH # 1.1 K/uL (1.0-4.3); LYMPH % 11.6 % (20.0-40.0); MEAN CELL VOLUME 94.3 fl (80.0-94.0); MEAN CORPUSCULAR HEMOGLOBIN 31.8 pg (27.0-31.0); MEAN CORPUSCULAR HGB CONC 33.7 g/dL (33.0-37.0); MEAN PLATELET VOLUME 9.2 fl (7.2-11.7); MONO % 11.1 % (0.0-10.0); NEUT # 6.3 K/uL (1.8-7.0); NEUT % 68.6 % (50.0-75.0); NRBC % 0.1 % (0.0-0.0); RBC 4.16 Mil/uL (4.40-5.90); RED CELL DISTRIBUTION WIDTH 13.1 % (11.5-14.5); WHITE BLOOD COUNT 9.2 K/uL (4.8-10.8)
[2017-03-22 05:32] LABS: ALB/GLOB RATIO 1.2 (1.0-2.1); ALBUMIN 3.8 g/dL (3.5-5.0); ALT/SGPT 97 U/L (21-72); AST/SGOT 194 U/L (17-59); BLOOD UREA NITROGEN 27 mg/dl (9-20); CALCIUM 8.3 mg/dL (8.4-10.2); GFR AFRICAN-AMERICAN > 60; GFR NON-AFRICAN AMERICAN > 60
[2017-03-22] MEDS: cefTRIAXone 2 GM in Dextrose 5% In Water 100 ML IVPB SCH ×2 (09:24→20:56)
[2017-03-22] MEDS: Sodium Chloride 0.9% 1,000 ML IV SCH ×2 (09:26→23:57)
[2017-03-22] MEDS: Potassium Chloride 20 mEq ER Tab PO SCH (09:29)
--- NOTE | 2017-03-22 10:56 | CP.PCM.PN ---
Subjective - Date & Time of Evaluation Date of Evaluation: 03/22/17 Time of Evaluation: 09:00 - Subjective Subjective: persistent hemiballism cultures all negative thus far MRI pending Objective - Vital Signs/Intake and Output Vital Signs (last 24 hours): Temp Pulse Resp BP Pulse Ox 98 F 84 18 190/93 H 97 03/22/17 08:00 03/22/17 08:00 03/22/17 08:00 03/22/17 08:00 03/22/17 08:00 Intake and Output: 03/22/17 03/22/17 06:59 18:59 Intake Total 3245 120 Output Total 2300 Balance 945 120 - Medications Medications: Current Medications Heparin Sodium (Porcine) (Heparin) 5,000 units SC Q12 [facility] PRN Reason: Protocol Last Admin: 03/21/17 21:43 Dose: 5,000 units Hydrochlorothiazide (Hydrodiuril) 12.5 mg PO DAILY [facility] Acyclovir 500 mg/ Sodium (Chloride) 100 mls @ 100 mls/hr IVPB Q8 [facility] Last Admin: 03/22/17 09:26 Dose: 100 mls/hr Ceftriaxone Sodium 2 gm/ (Dextrose) 100 mls @ 100 mls/hr IVPB Q12H [facility] Last Admin: 03/22/17 09:24 Dose: 100 mls/hr Vancomycin HCl 1 gm/ Sodium (Chloride) 250 mls @ 166.667 mls/hr IVPB Q12@0300, 1500 [facility] Last Admin: 03/22/17 03:19 Dose: 166.667 mls/hr Ampicillin 2 gm/ Sodium (Chloride) 100 mls @ 100 mls/hr IVPB 0500,1100,1700, 2300 [facility] Last Admin: 03/22/17 05:57 Dose: 100 mls/hr Sodium Chloride (Sodium Chloride 0.9%) 1,000 mls @ 125 mls/hr IV .Q8H [facility] Stop: 03/23/17 08:44 Last Admin: 03/22/17 09:26 Dose: 125 mls/hr Potassium Chloride (K-Dur 20 Meq Er Tab) 20 meq PO DAILY [facility] Last Admin: 03/22/17 09:29 Dose: 20 meq - Labs Labs: 03/22/17 04:20 03/22/17 04:20 PT 12.2 Seconds (9.8-13.1) 03/20/17 13:49 INR 1.1 (0.9-1.2) 03/20/17 13:49 APTT 29.1 Seconds (25.6-37.1) 03/20/17 13:49 - Constitutional Appears: Non-toxic, Chronically Ill - Head Exam Head Exam: NORMOCEPHALIC - Eye Exam Eye Exam: PERRL. absent: Scleral icterus - ENT Exam ENT Exam: Mucous Membranes Dry - Neck Exam Neck Exam: absent: Lymphadenopathy - Respiratory Exam Respiratory Exam: Decreased Breath Sounds - Cardiovascular Exam Cardiovascular Exam: REGULAR RHYTHM - GI/Abdominal Exam GI & Abdominal Exam: Distended, Soft - Rectal Exam Rectal Exam: Deferred - Exam Exam: NORMAL INSPECTION - Extremities Exam Extremities Exam: absent: Calf Tenderness, Pedal Edema - Back Exam Back Exam: absent: CVA tenderness (L), CVA tenderness (R) Assessment and Plan (1) Meningitis Status: Acute (2) Neuroleptic malignant syndrome Status: Acute (3) Severe sepsis Status: Acute
--- NOTE | 2017-03-22 12:30 | CP.PCM.PN ---
Subjective - Date & Time of Evaluation Date of Evaluation: 03/22/17 Time of Evaluation: 07:30 - Subjective Subjective: Patient was seen and evaluated at bedside. He is still experiencing jerking movements of the upper moreso than the lower extremities; movements become much more profound when patient is speaking vs awake but not speaking vs asleep. Denies headache, chest pain, shortness of breath, abdominal pain, leg/calf pain/ swelling. Objective - Vital Signs/Intake and Output Vital Signs (last 24 hours): Temp Pulse Resp BP Pulse Ox 98 F 81 13 152/91 H 98 03/22/17 12:00 03/22/17 12:00 03/22/17 12:00 03/22/17 12:00 03/22/17 12:00 Intake and Output: 03/22/17 03/22/17 06:59 18:59 Intake Total 3245 870 Output Total 2300 Balance 945 870 - Medications Medications: Current Medications Heparin Sodium (Porcine) (Heparin) 5,000 units SC Q12 [facility] PRN Reason: Protocol Last Admin: 03/22/17 11:46 Dose: 5,000 units Hydrochlorothiazide (Microzide) 12.5 mg PO DAILY [facility] Acyclovir 500 mg/ Sodium (Chloride) 100 mls @ 100 mls/hr IVPB Q8 [facility] Last Admin: 03/22/17 09:26 Dose: 100 mls/hr Ceftriaxone Sodium 2 gm/ (Dextrose) 100 mls @ 100 mls/hr IVPB Q12H [facility] Last Admin: 03/22/17 09:24 Dose: 100 mls/hr Ampicillin 2 gm/ Sodium (Chloride) 100 mls @ 100 mls/hr IVPB 0500,1100,1700, 2300 [facility] Last Admin: 03/22/17 11:45 Dose: 100 mls/hr Sodium Chloride (Sodium Chloride 0.9%) 1,000 mls @ 125 mls/hr IV .Q8H [facility] Stop: 03/23/17 08:44 Last Admin: 03/22/17 09:26 Dose: 125 mls/hr Potassium Chloride (K-Dur 20 Meq Er Tab) 20 meq PO DAILY [facility] Last Admin: 03/22/17 09:29 Dose: 20 meq - Labs Labs: 03/22/17 04:20 03/22/17 04:20 PT 12.2 Seconds (9.8-13.1) 03/20/17 13:49 INR 1.1 (0.9-1.2) 03/20/17 13:49 APTT 29.1 Seconds (25.6-37.1) 03/20/17 13:49 - Constitutional Appears: Non-toxic - Head Exam Head Exam: ATRAUMATIC - Eye Exam Eye Exam: EOMI, Normal appearance Pupil Exam: PERRL - ENT Exam ENT Exam: Mucous Membranes Moist - Respiratory Exam Respiratory Exam: Clear to Ausculation Bilateral, NORMAL BREATHING PATTERN. absent: Respiratory Distress - Cardiovascular Exam Cardiovascular Exam: REGULAR RHYTHM, +S1, +S2 - GI/Abdominal Exam GI & Abdominal Exam: Soft, Normal Bowel Sounds. absent: Distended, Guarding, Tenderness, Rebound - Extremities Exam Extremities Exam: Normal Capillary Refill. absent: Pedal Edema, Tenderness Additional comments: chronic discoloration on lower extremities, R>L - Neurological Exam Neurological Exam: Alert, Awake, CN II-XII Intact, Oriented x3 - Skin Skin Exam: Dry, Normal Color, Warm Assessment and Plan - Assessment and Plan (Free Text) Assessment: 82 yo M with PMH of HTN, asthma, past diagnosis of Parkinson's syndrome, admitted to ICU and found to have viral meningitis, possible NMS, repetitive jerking movements of unclear at this time etiology. Plan: 1) Acute Dystonia -Uncontrolled Parkinson disease, recently started new med pramipexole, but inconsistent with medication -Neuro questioning that these sx are a result of Parkinson's; considering that clinical manifestation suggestive of chorea -As per neuro D/C dantrium, bromocriptine, sinemet -EEG -MRI to assess caudate nucleus region,possibly consider D2 blockers -f/u EEG and MRI -Continue hydration NS @ 125 mL/h 2) Sepsis secondary to viral meningitis -SIRS + source of infection meningitis on admission -LP (03/30/17): CSF: bloody, WBC: 101, CSF RBC: 39908, total protein >600, glucose: 73 -CSF Gram stain: no organisms seen -CSF culture: no growth at this time -Acyclovir as per ID, consult appreciated -WBC down to 9.2 from 12.5 yesterday (18.7 on admission) -f/u CBC -Continue Ampicillin -Continue Ceftriaxone -Hold vancomycin -Temp: 98, HR 84, RR 18 3) JH -Improving -Secondary to rhabdomyolysis -Bun/Cr improving; 27/0.9 this morning, from 62/1.4 yesterday (79/2.1 on admission) -Continue hydration NS 125 ml/h -Urine osmolality 300 -CPK this morning improving: was 1509, down from 3721 at 4 pm yest (was 26654 on admission). -f/u Bun/Cr 4) HTN -Home meds were held at first due to low BP, but meds started after BP was elevated -Hydrochlorothiazide 12.5 mg PO daily -Monitor BP 5)Hypokalemia -K today was 3.2 -KCl 20mEq -f/u CMP 6) Asthma -Controlled -Duoneb Q6h PRN 7) DVT Prophylaxis -Heparin 5000 sc Q12h
--- NOTE | 2017-03-22 13:42 | MRI ---
PROCEDURE: MRI BRAIN WITHOUT CONTRAST HISTORY: attention at caudate nucleus COMPARISON: None. TECHNIQUE: Multiplanar, multisequence MR images of the brain were obtained without intravenous contrast enhancement. FINDINGS: HEMORRHAGE: None DWI: No evidence of an acute or early subacute infarction. BRAIN PARENCHYMA: No mass effect or edema. Global atrophy most prominent in the frontoparietal region bilaterally as well as in the cerebellum. Mild periventricular white matter signal abnormality with punctate foci of abnormal signal on T2 and FLAIR images in the frontal deep white matter bilaterally, consistent with chronic microvascular ischemic change. VENTRICLES: Unremarkable. No hydrocephalus. CRANIUM: Unremarkable. ORBITS: Grossly unremarkable. PARANASAL SINUSES/MASTOIDS: Chronic ethmoid sinusitis. VASCULAR SYSTEM: Skull base flow voids intact. OTHER FINDINGS: None. IMPRESSION: No evidence of acute infarct. Global atrophy most prominent in the frontoparietal region bilaterally. Also the cerebellar atrophy noted. Mild periventricular and deep chronic microvascular white matter ischemic change.
--- NOTE | 2017-03-22 16:08 | CP.CCUPN ---
<[place] Lazo - Last Filed: 03/22/17 16:40> CCU Subjective - Physician Review Events Since Last Encounter (Free Text): 03/22/17 10:00 82 YO M was seen at bedside, having some type of jerky movements of his upper and lower extremities. States he is doing well. Denies any overnight activities. EEG leads were in place. - Pt denies any fever, chills, nausea or vomiting. Critical Care Time Spent (in minutes): 30 CCU Objective - Vital Signs / Intake & Output Vital Signs (Last 4 hours): Vital Signs Temp Pulse Resp BP Pulse Ox 03/22/17 13:52 84 13 142/76 96 03/22/17 12:00 98 F 81 13 152/91 H 98 Intake and Output (Last 8hrs): Intake & Output 03/22/17 03/22/17 03/22/17 06:59 14:59 22:59 Intake Total 845 1120 Output Total 1000 Balance -155 1120 Intake: IV 250 Intake, Piggyback 725 750 Oral 120 120 Output: Urine 1000 Urethral (Ramsey) 1000 - Physical Exam Head: Positive for: Atraumatic, Normocephalic Pupils: Positive for: PERRL. Negative for: Sluggish, Non-Reactive Extroacular Muscles: Positive for: EOMI. Negative for: Gaze Palsy, Entrapment Conjunctiva: Positive for: Normal. Negative for: Injected, Icteric Ears: Positive for: Normal Mouth: Positive for: Moist Mucous Membranes Pharnyx: Positive for: Normal. Negative for: ERYTHEMA Neck: Positive for: Normal Range of Motion, Trachea Midline. Negative for: Meningeal Signs, MIDLINE TENDERNESS, Paraspinal Tenderness, JVD, Lymphadenopathy , Bruit, Other Respiratory/Chest: Positive for: Clear to Auscultation, Good Air Exchange. Negative for: Respiratory Distress, Accessory Muscle Use, Wheezes, Rales, Rhonchi Cardiovascular: Positive for: Regular Rate and Rhythm, Normal S1, S2, Peripheal Pulses Present. Negative for: Murmurs, Irregular Rhythm Abdomen: Positive for: Normal Bowel Sounds. Negative for: Tenderness, Distention, Peritoneal Signs, Rebound, Guarding Upper Extremity: Positive for: Normal Inspection, Normal ROM, NORMAL PULSES. Negative for: Cyanosis, Edema, Tenderness, Swelling, Erythema Lower Extremity: Positive for: NORMAL PULSES, Erythema (discoloration on lower extremities). Negative for: Edema, CALF TENDERNESS, Cyanosis Neurological: Positive for: GCS=15, CN II-XII Intact, Speech Normal, Motor Func Grossly Intact, Normal Sensory Function, Other (Jerky movments of upper and lower extremities) Psychiatric: Positive for: Alert, Oriented x 3, Normal Insight, Normal Concentration, Normal Affect - Medications Active Medications: Active Medications Generic Name Dose Route Start Last Admin Trade Name Freq PRN Reason Stop Dose Admin Heparin Sodium (Porcine) 5,000 units 03/21/17 09:00 03/22/17 11:46 Heparin SC 5,000 units Q12 ALBERTO Administration Protocol Hydrochlorothiazide 12.5 mg 03/23/17 09:00 Microzide PO DAILY ALBERTO Acyclovir 500 mg/ Sodium 100 mls @ 100 mls/hr 03/21/17 01:00 03/22/17 09:26 Chloride IVPB 100 mls/hr Q8 ALBERTO Administration Ceftriaxone Sodium 2 gm/ 100 mls @ 100 mls/hr 03/20/17 21:30 03/22/17 09:24 Dextrose IVPB 100 mls/hr Q12H ALBERTO Administration Ampicillin 2 gm/ Sodium 100 mls @ 100 mls/hr 03/22/17 05:00 03/22/17 11:45 Chloride IVPB 100 mls/hr 0500,1100,1700,2300 ALEBRTO Administration Sodium Chloride 1,000 mls @ 125 mls/hr 03/22/17 08:45 03/22/17 09:26 Sodium Chloride 0.9% IV 03/23/17 08:44 125 mls/hr .Q8H ALBERTO Administration Potassium Chloride 20 meq 03/22/17 09:00 03/22/17 09:29 K-Dur 20 Meq Er Tab PO 20 meq DAILY ALBERTO Administration - Patient Studies Lab Studies: Lab Studies 03/22/17 03/22/17 03/22/17 Range/Units 08:59 04:20 04:20 WBC (4.8-10.8) K/uL RBC (4.40-5.90) Mil/uL Hgb (12.0-18.0) g/dL Hct (35.0-51.0) % MCV (80.0-94.0) fl MCH (27.0-31.0) pg MCHC (33.0-37.0) g/dL RDW (11.5-14.5) % Plt Count (130-400) K/uL MPV (7.2-11.7) fl Neut % (Auto) (50.0-75.0) % Lymph % (Auto) (20.0-40.0) % Cavalier % (Auto) (0.0-10.0) % Eos % (Auto) (0.0-4.0) % Baso % (Auto) (0.0-2.0) % Neut # (1.8-7.0) K/uL Lymph # (1.0-4.3) K/uL Cavalier # (0.0-0.8) K/uL Eos # (0.0-0.7) K/uL Baso # (0.0-0.2) K/uL Sodium 145 (132-148) mmol/l Potassium 3.2 L (3.6-5.0) MMOL/L Chloride 104 (98-107) mmol/L Carbon Dioxide 30 (22-30) mmol/L Anion Gap 14 (10-20) BUN 27 H (9-20) mg/dl Creatinine 0.9 (0.8-1.5) mg/dL Est GFR ( Amer) > 60 Est GFR (Non-Af Amer) > 60 Random Glucose 98 (75-110) mg/dL Serum Osmolality 300 (272-300) mosm/kg Calcium 8.3 L (8.4-10.2) mg/dL Total Bilirubin 0.7 (0.2-1.3) mg/dl AST 194 H D (17-59) U/L ALT 97 H (21-72) U/L Alkaline Phosphatase 75 (38-126) U/L Total Creatine Kinase 1509 H (55-170) U/L Total Protein 7.0 (6.3-8.2) G/DL Albumin 3.8 (3.5-5.0) g/dL Globulin 3.2 (2.2-3.9) gm/dL Albumin/Globulin Ratio 1.2 (1.0-2.1) Procalcitonin (0.19-0.49) NG/ML Vancomycin Trough 29.3 H (5.0-10.0) ug/mL HIV 1&2 Antibody Screen (NEGATIVE) 03/22/17 03/21/17 03/21/17 Range/Units 04:20 16:24 13:18 WBC 9.2 (4.8-10.8) K/uL RBC 4.16 L (4.40-5.90) Mil/uL Hgb 13.2 (12.0-18.0) g/dL Hct 39.2 (35.0-51.0) % MCV 94.3 H (80.0-94.0) fl MCH 31.8 H (27.0-31.0) pg MCHC 33.7 (33.0-37.0) g/dL RDW 13.1 (11.5-14.5) % Plt Count 156 (130-400) K/uL MPV 9.2 (7.2-11.7) fl Neut % (Auto) 68.6 (50.0-75.0) % Lymph % (Auto) 11.6 L (20.0-40.0) % Cavalier % (Auto) 11.1 H (0.0-10.0) % Eos % (Auto) 8.3 H (0.0-4.0) % Baso % (Auto) 0.4 (0.0-2.0) % Neut # 6.3 (1.8-7.0) K/uL Lymph # 1.1 (1.0-4.3) K/uL Cavalier # 1.0 H (0.0-0.8) K/uL Eos # 0.8 H (0.0-0.7) K/uL Baso # 0.0 (0.0-0.2) K/uL Sodium (132-148) mmol/l Potassium (3.6-5.0) MMOL/L Chloride (98-107) mmol/L Carbon Dioxide (22-30) mmol/L Anion Gap (10-20) BUN (9-20) mg/dl Creatinine (0.8-1.5) mg/dL Est GFR ( Amer) Est GFR (Non-Af Amer) Random Glucose (75-110) mg/dL Serum Osmolality (272-300) mosm/kg Calcium (8.4-10.2) mg/dL Total Bilirubin (0.2-1.3) mg/dl AST (17-59) U/L ALT (21-72) U/L Alkaline Phosphatase (38-126) U/L Total Creatine Kinase 3721 H (55-170) U/L Total Protein (6.3-8.2) G/DL Albumin (3.5-5.0) g/dL Globulin (2.2-3.9) gm/dL Albumin/Globulin Ratio (1.0-2.1) Procalcitonin (0.19-0.49) NG/ML Vancomycin Trough (5.0-10.0) ug/mL HIV 1&2 Antibody Screen Negative (NEGATIVE) 03/21/17 Range/Units 13:18 WBC (4.8-10.8) K/uL RBC (4.40-5.90) Mil/uL Hgb (12.0-18.0) g/dL Hct (35.0-51.0) % MCV (80.0-94.0) fl MCH (27.0-31.0) pg MCHC (33.0-37.0) g/dL RDW (11.5-14.5) % Plt Count (130-400) K/uL MPV (7.2-11.7) fl Neut % (Auto) (50.0-75.0) % Lymph % (Auto) (20.0-40.0) % Cavalier % (Auto) (0.0-10.0) % Eos % (Auto) (0.0-4.0) % Baso % (Auto) (0.0-2.0) % Neut # (1.8-7.0) K/uL Lymph # (1.0-4.3) K/uL Cavalier # (0.0-0.8) K/uL Eos # (0.0-0.7) K/uL Baso # (0.0-0.2) K/uL Sodium (132-148) mmol/l Potassium (3.6-5.0) MMOL/L Chloride (98-107) mmol/L Carbon Dioxide (22-30) mmol/L Anion Gap (10-20) BUN (9-20) mg/dl Creatinine (0.8-1.5) mg/dL Est GFR ( Amer) Est GFR (Non-Af Amer) Random Glucose (75-110) mg/dL Serum Osmolality (272-300) mosm/kg Calcium (8.4-10.2) mg/dL Total Bilirubin (0.2-1.3) mg/dl AST (17-59) U/L ALT (21-72) U/L Alkaline Phosphatase (38-126) U/L Total Creatine Kinase (55-170) U/L Total Protein (6.3-8.2) G/DL Albumin (3.5-5.0) g/dL Globulin (2.2-3.9) gm/dL Albumin/Globulin Ratio (1.0-2.1) Procalcitonin 0.10 L (0.19-0.49) NG/ML Vancomycin Trough (5.0-10.0) ug/mL HIV 1&2 Antibody Screen (NEGATIVE) Laboratory Results - last 24 hr 03/21/17 03/21/17 03/21/17 13:18 13:18 16:24 WBC RBC Hgb Hct MCV MCH MCHC RDW Plt Count MPV Neut % (Auto) Lymph % (Auto) Cavalier % (Auto) Eos % (Auto) Baso % (Auto) Neut # Lymph # Cavalier # Eos # Baso # Sodium Potassium Chloride Carbon Dioxide Anion Gap BUN Creatinine Est GFR ( Amer) Est GFR (Non-Af Amer) Random Glucose Serum Osmolality Calcium Total Bilirubin AST ALT Alkaline Phosphatase Total Creatine Kinase 3721 H Total Protein Albumin Globulin Albumin/Globulin Ratio Procalcitonin 0.10 L Vancomycin Trough HIV 1&2 Antibody Screen Negative 03/22/17 03/22/17 03/22/17 04:20 04:20 04:20 WBC 9.2 RBC 4.16 L Hgb 13.2 Hct 39.2 MCV 94.3 H MCH 31.8 H MCHC 33.7 RDW 13.1 Plt Count 156 MPV 9.2 Neut % (Auto) 68.6 Lymph % (Auto) 11.6 L Cavalier % (Auto) 11.1 H Eos % (Auto) 8.3 H Baso % (Auto) 0.4 Neut # 6.3 Lymph # 1.1 Cavalier # 1.0 H Eos # 0.8 H Baso # 0.0 Sodium 145 Potassium 3.2 L Chloride 104 Carbon Dioxide 30 Anion Gap 14 BUN 27 H Creatinine 0.9 Est GFR ( Amer) > 60 Est GFR (Non-Af Amer) > 60 Random Glucose 98 Serum Osmolality Calcium 8.3 L Total Bilirubin 0.7 AST 194 H D ALT 97 H Alkaline Phosphatase 75 Total Creatine Kinase 1509 H Total Protein 7.0 Albumin 3.8 Globulin 3.2 Albumin/Globulin Ratio 1.2 Procalcitonin Vancomycin Trough 29.3 H HIV 1&2 Antibody Screen 03/22/17 08:59 WBC RBC Hgb Hct MCV MCH MCHC RDW Plt Count MPV Neut % (Auto) Lymph % (Auto) Cavalier % (Auto) Eos % (Auto) Baso % (Auto) Neut # Lymph # Cavalier # Eos # Baso # Sodium Potassium Chloride Carbon Dioxide Anion Gap BUN Creatinine Est GFR ( Amer) Est GFR (Non-Af Amer) Random Glucose Serum Osmolality 300 Calcium Total Bilirubin AST ALT Alkaline Phosphatase Total Creatine Kinase Total Protein Albumin Globulin Albumin/Globulin Ratio Procalcitonin Vancomycin Trough HIV 1&2 Antibody Screen Fingerstick Blood Sugar Results: 138 Critical Care Progress Note - Nutrition Nutrition: Nutrition Category Date Time Status Dysphagia/Modified Consistency Diet [DIET] Diets 03/21/17 Dinner Active Assessment/Plan - Assessment and Plan (Free Text) Assessment: 1) Abnormal upper and lower extremity movement - Neurology consult was appreciated, Dr. Pizarro does not feel as if the patient is having Parkinson like symptoms, b/c symptoms worsened with sinement and pramipexole. 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 Global atrophy in the frontoparietal region b/l. Cerebral atrophy noted. Mild periventricular and deep chronic microvacular white matter ischemic changes. -F/U EEG -Continue hydration NS @ 125 mL/h 2) Viral meningitis -LP (03/30/17): CSF: bloody, WBC: 101, CSF RBC: 10958, total protein >600, glucose: 73 -CSF Gram stain: no growth in 48 hours -CSF culture: no growth at this time - Blood growth: No growth in 48 hours -Acyclovir as per ID, consult appreciated 3) Sepsis ( Resolving) - SIRS +ve on admission - Afebrile overnight -Secondary to meningitis -WBC trended down to 9.2 - (Hold Vanco) Vanco trough: 29.3 -Continue Ampicillin -Continue Ceftriaxone -Temp: 98 , HR 81, RR 13 3) JH ( improving) -Secondary to rhabdomyolysis -Bun/Cr improving; 27/.9 this morning, from 79/2.1 -Continue hydration NS 125 ml/h -CPK trended down from 109 from 38186 - Continue following up on CPK - Urine electrolytes have been ordered 5) HTN -142/76 this morning - Continue home medications Hydrochlorathiazide - Monitor BP 7) DVT Prophylaxis -Heparin 5000 sc Q12h <Kevin Espana - Last Filed: 03/22/17 17:05> CCU Objective - Vital Signs / Intake & Output Vital Signs (Last 4 hours): Vital Signs Temp Pulse Resp BP Pulse Ox 03/22/17 16:00 98.2 F 87 17 124/73 97 03/22/17 13:52 84 13 142/76 96 Intake and Output (Last 8hrs): Intake & Output 03/22/17 03/22/17 03/22/17 06:59 14:59 22:59 Intake Total 845 1120 400 Output Total 1000 Balance -155 1120 400 Intake: IV 250 Intake, Piggyback 725 750 200 Oral 120 120 200 Output: Urine 1000 Urethral (Ramsey) 1000 - Medications Active Medications: Active Medications Generic Name Dose Route Start Last Admin Trade Name Freq PRN Reason Stop Dose Admin Heparin Sodium (Porcine) 5,000 units 03/21/17 09:00 03/22/17 11:46 Heparin SC 5,000 units Q12 ALBERTO Administration Protocol Hydrochlorothiazide 12.5 mg 03/23/17 09:00 Microzide PO DAILY ALBERTO Acyclovir 500 mg/ Sodium 100 mls @ 100 mls/hr 03/21/17 01:00 03/22/17 16:03 Chloride IVPB 100 mls/hr Q8 ALBERTO Administration Ceftriaxone Sodium 2 gm/ 100 mls @ 100 mls/hr 03/20/17 21:30 03/22/17 09:24 Dextrose IVPB 100 mls/hr Q12H ALBERTO Administration Ampicillin 2 gm/ Sodium 100 mls @ 100 mls/hr 03/22/17 05:00 03/22/17 16:04 Chloride IVPB 100 mls/hr 0500,1100,1700,2300 ALBERTO Administration Sodium Chloride 1,000 mls @ 125 mls/hr 03/22/17 08:45 03/22/17 09:26 Sodium Chloride 0.9% IV 03/23/17 08:44 125 mls/hr .Q8H ALBERTO Administration Potassium Chloride 20 meq 03/22/17 09:00 03/22/17 09:29 K-Dur 20 Meq Er Tab PO 20 meq DAILY ALBERTO Administration - Patient Studies Lab Studies: Lab Studies 03/22/17 03/22/17 03/22/17 Range/Units 15:05 08:59 04:20 WBC (4.8-10.8) K/uL RBC (4.40-5.90) Mil/uL Hgb (12.0-18.0) g/dL Hct (35.0-51.0) % MCV (80.0-94.0) fl MCH (27.0-31.0) pg MCHC (33.0-37.0) g/dL RDW (11.5-14.5) % Plt Count (130-400) K/uL MPV (7.2-11.7) fl Neut % (Auto) (50.0-75.0) % Lymph % (Auto) (20.0-40.0) % Cavalier % (Auto) (0.0-10.0) % Eos % (Auto) (0.0-4.0) % Baso % (Auto) (0.0-2.0) % Neut # (1.8-7.0) K/uL Lymph # (1.0-4.3) K/uL Cavalier # (0.0-0.8) K/uL Eos # (0.0-0.7) K/uL Baso # (0.0-0.2) K/uL Sodium (132-148) mmol/l Potassium (3.6-5.0) MMOL/L Chloride (98-107) mmol/L Carbon Dioxide (22-30) mmol/L Anion Gap (10-20) BUN (9-20) mg/dl Creatinine (0.8-1.5) mg/dL Est GFR ( Amer) Est GFR (Non-Af Amer) Random Glucose (75-110) mg/dL Serum Osmolality 300 (272-300) mosm/kg Calcium (8.4-10.2) mg/dL Total Bilirubin (0.2-1.3) mg/dl AST (17-59) U/L ALT (21-72) U/L Alkaline Phosphatase (38-126) U/L Total Creatine Kinase (55-170) U/L Total Protein (6.3-8.2) G/DL Albumin (3.5-5.0) g/dL Globulin (2.2-3.9) gm/dL Albumin/Globulin Ratio (1.0-2.1) Procalcitonin (0.19-0.49) NG/ML Urine Osmolality 746 (300-1000) mosm/kg Ur Random Sodium 144 meq/L Ur Random Potassium 21.1 mmol/L Vancomycin Trough 29.3 H (5.0-10.0) ug/mL HIV 1&2 Antibody Screen (NEGATIVE) 03/22/17 03/22/17 03/21/17 Range/Units 04:20 04:20 16:24 WBC 9.2 (4.8-10.8) K/uL RBC 4.16 L (4.40-5.90) Mil/uL Hgb 13.2 (12.0-18.0) g/dL Hct 39.2 (35.0-51.0) % MCV 94.3 H (80.0-94.0) fl MCH 31.8 H (27.0-31.0) pg MCHC 33.7 (33.0-37.0) g/dL RDW 13.1 (11.5-14.5) % Plt Count 156 (130-400) K/uL MPV 9.2 (7.2-11.7) fl Neut % (Auto) 68.6 (50.0-75.0) % Lymph % (Auto) 11.6 L (20.0-40.0) % Cavalier % (Auto) 11.1 H (0.0-10.0) % Eos % (Auto) 8.3 H (0.0-4.0) % Baso % (Auto) 0.4 (0.0-2.0) % Neut # 6.3 (1.8-7.0) K/uL Lymph # 1.1 (1.0-4.3) K/uL Cavalier # 1.0 H (0.0-0.8) K/uL Eos # 0.8 H (0.0-0.7) K/uL Baso # 0.0 (0.0-0.2) K/uL Sodium 145 (132-148) mmol/l Potassium 3.2 L (3.6-5.0) MMOL/L Chloride 104 (98-107) mmol/L Carbon Dioxide 30 (22-30) mmol/L Anion Gap 14 (10-20) BUN 27 H (9-20) mg/dl Creatinine 0.9 (0.8-1.5) mg/dL Est GFR ( Amer) > 60 Est GFR (Non-Af Amer) > 60 Random Glucose 98 (75-110) mg/dL Serum Osmolality (272-300) mosm/kg Calcium 8.3 L (8.4-10.2) mg/dL Total Bilirubin 0.7 (0.2-1.3) mg/dl AST 194 H D (17-59) U/L ALT 97 H (21-72) U/L Alkaline Phosphatase 75 (38-126) U/L Total Creatine Kinase 1509 H 3721 H (55-170) U/L Total Protein 7.0 (6.3-8.2) G/DL Albumin 3.8 (3.5-5.0) g/dL Globulin 3.2 (2.2-3.9) gm/dL Albumin/Globulin Ratio 1.2 (1.0-2.1) Procalcitonin (0.19-0.49) NG/ML Urine Osmolality (300-1000) mosm/kg Ur Random Sodium meq/L Ur Random Potassium mmol/L Vancomycin Trough (5.0-10.0) ug/mL HIV 1&2 Antibody Screen (NEGATIVE) 03/21/17 03/21/17 Range/Units 13:18 13:18 WBC (4.8-10.8) K/uL RBC (4.40-5.90) Mil/uL Hgb (12.0-18.0) g/dL Hct (35.0-51.0) % MCV (80.0-94.0) fl MCH (27.0-31.0) pg MCHC (33.0-37.0) g/dL RDW (11.5-14.5) % Plt Count (130-400) K/uL MPV (7.2-11.7) fl Neut % (Auto) (50.0-75.0) % Lymph % (Auto) (20.0-40.0) % Cavalier % (Auto) (0.0-10.0) % Eos % (Auto) (0.0-4.0) % Baso % (Auto) (0.0-2.0) % Neut # (1.8-7.0) K/uL Lymph # (1.0-4.3) K/uL Cavalier # (0.0-0.8) K/uL Eos # (0.0-0.7) K/uL Baso # (0.0-0.2) K/uL Sodium (132-148) mmol/l Potassium (3.6-5.0) MMOL/L Chloride (98-107) mmol/L Carbon Dioxide (22-30) mmol/L Anion Gap (10-20) BUN (9-20) mg/dl Creatinine (0.8-1.5) mg/dL Est GFR ( Amer) Est GFR (Non-Af Amer) Random Glucose (75-110) mg/dL Serum Osmolality (272-300) mosm/kg Calcium (8.4-10.2) mg/dL Total Bilirubin (0.2-1.3) mg/dl AST (17-59) U/L ALT (21-72) U/L Alkaline Phosphatase (38-126) U/L Total Creatine Kinase (55-170) U/L Total Protein (6.3-8.2) G/DL Albumin (3.5-5.0) g/dL Globulin (2.2-3.9) gm/dL Albumin/Globulin Ratio (1.0-2.1) Procalcitonin 0.10 L (0.19-0.49) NG/ML Urine Osmolality (300-1000) mosm/kg Ur Random Sodium meq/L Ur Random Potassium mmol/L Vancomycin Trough (5.0-10.0) ug/mL HIV 1&2 Antibody Screen Negative (NEGATIVE) Laboratory Results - last 24 hr 03/21/17 03/21/17 03/21/17 13:18 13:18 16:24 WBC RBC Hgb Hct MCV MCH MCHC RDW Plt Count MPV Neut % (Auto) Lymph % (Auto) [place]alier % (Auto) Eos % (Auto) Baso % (Auto) Neut # Lymph # Cavalier # Eos # Baso # Sodium Potassium Chloride Carbon Dioxide Anion Gap BUN Creatinine Est GFR ( Amer) Est GFR (Non-Af Amer) Random Glucose Serum Osmolality Calcium Total Bilirubin AST ALT Alkaline Phosphatase Total Creatine Kinase 3721 H Total Protein Albumin Globulin Albumin/Globulin Ratio Procalcitonin 0.10 L Urine Osmolality Ur Random Sodium Ur Random Potassium Vancomycin Trough HIV 1&2 Antibody Screen Negative 03/22/17 03/22/17 03/22/17 04:20 04:20 04:20 WBC 9.2 RBC 4.16 L Hgb 13.2 Hct 39.2 MCV 94.3 H MCH 31.8 H MCHC 33.7 RDW 13.1 Plt Count 156 MPV 9.2 Neut % (Auto) 68.6 Lymph % (Auto) 11.6 L [place]alier % (Auto) 11.1 H Eos % (Auto) 8.3 H Baso % (Auto) 0.4 Neut # 6.3 Lymph # 1.1 Cavalier # 1.0 H Eos # 0.8 H Baso # 0.0 Sodium 145 Potassium 3.2 L Chloride 104 Carbon Dioxide 30 Anion Gap 14 BUN 27 H Creatinine 0.9 Est GFR ( Amer) > 60 Est GFR (Non-Af Amer) > 60 Random Glucose 98 Serum Osmolality Calcium 8.3 L Total Bilirubin 0.7 AST 194 H D ALT 97 H Alkaline Phosphatase 75 Total Creatine Kinase 1509 H Total Protein 7.0 Albumin 3.8 Globulin 3.2 Albumin/Globulin Ratio 1.2 Procalcitonin Urine Osmolality Ur Random Sodium Ur Random Potassium Vancomycin Trough 29.3 H HIV 1&2 Antibody Screen 03/22/17 03/22/17 08:59 15:05 WBC RBC Hgb Hct MCV MCH MCHC RDW Plt Count MPV Neut % (Auto) Lymph % (Auto) [place]alier % (Auto) Eos % (Auto) Baso % (Auto) Neut # Lymph # Cavalier # Eos # Baso # Sodium Potassium Chloride Carbon Dioxide Anion Gap BUN Creatinine Est GFR ( Amer) Est GFR (Non-Af Amer) Random Glucose Serum Osmolality 300 Calcium Total Bilirubin AST ALT Alkaline Phosphatase Total Creatine Kinase Total Protein Albumin Globulin Albumin/Globulin Ratio Procalcitonin Urine Osmolality 746 Ur Random Sodium 144 Ur Random Potassium 21.1 Vancomycin Trough HIV 1&2 Antibody Screen Critical Care Progress Note - Nutrition Nutrition: Nutrition Category Date Time Status Dysphagia/Modified Consistency Diet [DIET] Diets 03/21/17 Dinner Active Assessment/Plan (1) Meningitis Current Visit: Yes Status: Acute Comment: Continue Ampicillin, Ceftriaxone, Vancomycin and Acyclovir 500 mg IVPB Q8 (2) Neuroleptic malignant syndrome Current Visit: Yes Status: Acute Priority: High Comment: IV hydration 0.9% NS at 125 ml/hr Continue Dantrolene, Carbidopa/Levodopa and bromocriptine 2.5mg PO TID (3) Renal insufficiency Current Visit: Yes Status: Acute (4) Severe sepsis Current Visit: Yes Status: Acute Comment: Renal function improving, Continue IV hydration (5) Prophylactic measure Current Visit: Yes Status: Acute Attending/Attestation - Attestation I have personally seen and examined this patient.: Yes I have fully participated in the care of the patient.: Yes I have reviewed all pertinent clinical information: Yes Notes (Text): 03/22/17 17:04 Today: Wednesday, March 22, 2017 The patient was Seen/interviewed and examined by me at the bedside during ICU round, Medical records reviewed and Management issues were discussed and formulated with the house staff. I have reviewed all the relevant clinical, laboratory, hemodynamic, radiographic data and medications I concur with resident's assessment and plan of care, as outlined in Dr Lazo note
[2017-03-23] MEDS: Acyclovir 500 MG in Sodium Chloride 0.9% 100 ML IVPB SCH ×3 (01:00→16:45)
[2017-03-23] MEDS: Sodium Chloride 0.9% 1,000 ML IV SCH ×2 (02:17→02:18)
--- NOTE | 2017-03-23 04:14 | PN ---
DATE: 03/22/2017 SUBJECTIVE: Neurologic problem. Dopa induced dystonia. PHYSICAL EXAMINATION GENERAL: The patient is more awake, alert, oriented to person, place, and time. No confusion. No sign of depression. No sign of suicidal ideation. No confabulation. The patient is comfortably sitting and eating his food on his own. He want to know about his health, been explained to him. He understood very well. He follows 1 to 2 step complex command, no right and left confusion. VITAL SIGNS: Blood pressure 124/73, mean artery pressure of 90, respiratory rate 17, temperature 98.2, pulse rate 87. NEUROLOGIC: Visual field intact, extraocular moment is somewhat restricted in all direction. No fascial asymmetry. Good gag. MOTOR: No drips offered. Mild cogwheeling; however, short resting tremor noted. Deep tendon reflexes are 1+ Plantars are downgoing. NECK: Supple. No meningeal signs. The patient remarkably improved with hydration and stopping all dopaminergics. Responded well with D2 blockers (Haldol). LABORATORY DATA AND IMAGING: MRI of the brain does not show any caudate lesion,which ruling out Hope's chorea. However, brainstem ischemic demyelinating process should be ruled out. RECOMMENDATIONS: 1. Tomorrow,I would like him to have MRI of the brain with gadolinium to rule out any brainstem ischemic process or demyelinating process. 2. I would like to add him on Seroquel 25 mg twice a day for now and eventually this medication should be taper off in near future. 3. Continue hydration. 4. EEG will be reviewed by me. 5. At this point, from neurologic point of view, the patient seems to be remarkably improved. I think the patient does not have Parkinson's disease due to this clinical response on pharmacological restriction. 6. He has abnormal CSF, been on antibiotics as per ID. However, the routine cultures and recommended results are still pending. 7. The patient will be followed closely with you _ Colt Pizarro MD [facility]
[2017-03-23] MEDS: Ampicillin 2 GM in Sodium Chloride 0.9% 100 ML IVPB SCH ×2 (05:00→10:42)
[2017-03-23] MEDS: Potassium Chloride 20 mEq ER Tab PO SCH (08:29)
[2017-03-23] MEDS: cefTRIAXone 2 GM in Dextrose 5% In Water 100 ML IVPB SCH ×2 (08:30→21:30)
[2017-03-23] MEDS ORDERED: Gadodiamide 287 MG/ML VIAL (15ML) IV ONE (08:59)
[2017-03-23 10:28] LABS: BLOOD UREA NITROGEN 16 mg/dl (9-20); CALCIUM 8.5 mg/dL (8.4-10.2); GFR AFRICAN-AMERICAN > 60; GFR NON-AFRICAN AMERICAN > 60
--- NOTE | 2017-03-23 10:44 | MRI ---
PROCEDURE: MRI BRAIN WITH AND WITHOUT CONTRAST HISTORY: demyelinating vs brain stem pathology COMPARISON: None. TECHNIQUE: Multiplanar, multisequence MR images of the brain were obtained with and without intravenous contrast enhancement (Omniscan 14 cc). FINDINGS: HEMORRHAGE: None DWI: Potential acute or subacute lacune infarct left parietal cortex in the periphery. BRAIN PARENCHYMA: No abnormal intracranial enhancement. No intrarenal enhancing mass. Diffuse cerebral atrophy reiterated. ENHANCEMENT: No abnormal intracranial enhancement. No intrarenal enhancing mass VENTRICLES: Unremarkable. No hydrocephalus. CRANIUM: Unremarkable. ORBITS: Grossly unremarkable. PARANASAL SINUSES/MASTOIDS: Right maxillary and bilateral ethmoid sinus disease again evident. VASCULAR SYSTEM: Unremarkable. OTHER FINDINGS: None . IMPRESSION: Diffuse cerebral atrophy is reiterated the current examination. There is no abnormal intracranial enhancing appreciated however. Further clinical correlation is advised. Note is made of the potential acute or subacute lacunar infarct in the peripheral cortex of the left parietal lobe.
--- NOTE | 2017-03-23 12:07 | CP.PCM.PN ---
Subjective - Date & Time of Evaluation Date of Evaluation: 03/23/17 Time of Evaluation: 08:35 - Subjective Subjective: Patient was seen and evaluated at bedside, appeared comfortable and in no acute distress. Today, patient notices that the jerky movements of the extremities that the patient was previously experiencing have significantly improved, and at the time of evaluation, patient was not experiencing these profound movements even when he was speaking. He denies headache, chest pain, abdominal pain, shortness of breath, abdominal pain, leg/calf pain/swelling. Objective - Vital Signs/Intake and Output Vital Signs (last 24 hours): Temp Pulse Resp BP Pulse Ox 98.7 F 101 H 13 144/85 98 03/23/17 08:25 03/23/17 10:00 03/23/17 10:00 03/23/17 08:25 03/23/17 10:00 Intake and Output: 03/23/17 03/23/17 06:59 18:59 Intake Total 1575 450 Output Total 800 Balance 775 450 - Medications Medications: Current Medications Heparin Sodium (Porcine) (Heparin) 5,000 units SC Q12 [facility] PRN Reason: Protocol Last Admin: 03/23/17 08:29 Dose: 5,000 units Hydrochlorothiazide (Microzide) 12.5 mg PO DAILY [facility] Last Admin: 03/23/17 08:29 Dose: 12.5 mg Acyclovir 500 mg/ Sodium (Chloride) 100 mls @ 100 mls/hr IVPB Q8 [facility] Last Admin: 03/23/17 08:31 Dose: 100 mls/hr Ceftriaxone Sodium 2 gm/ (Dextrose) 100 mls @ 100 mls/hr IVPB Q12H [facility] Last Admin: 03/23/17 08:30 Dose: 100 mls/hr Ampicillin 2 gm/ Sodium (Chloride) 100 mls @ 100 mls/hr IVPB 0500,1100,1700, 2300 [facility] Last Admin: 03/23/17 10:42 Dose: 100 mls/hr Potassium Chloride (K-Dur 20 Meq Er Tab) 20 meq PO DAILY [facility] Last Admin: 03/23/17 08:29 Dose: 20 meq Quetiapine Fumarate (Seroquel) 25 mg PO BID [facility] Last Admin: 03/23/17 08:30 Dose: 25 mg - Labs Labs: 03/22/17 04:20 03/23/17 10:08 PT 12.2 Seconds (9.8-13.1) 03/20/17 13:49 INR 1.1 (0.9-1.2) 03/20/17 13:49 APTT 29.1 Seconds (25.6-37.1) 03/20/17 13:49 - Constitutional Appears: Well, No Acute Distress - Head Exam Head Exam: ATRAUMATIC - Eye Exam Eye Exam: EOMI, Normal appearance, PERRL - ENT Exam ENT Exam: Mucous Membranes Moist - Neck Exam Neck Exam: Normal Inspection - Respiratory Exam Respiratory Exam: Clear to Ausculation Bilateral, NORMAL BREATHING PATTERN - Cardiovascular Exam Cardiovascular Exam: REGULAR RHYTHM, +S1, +S2 - GI/Abdominal Exam GI & Abdominal Exam: Soft, Normal Bowel Sounds. absent: Distended, Guarding, Tenderness, Rebound - Extremities Exam Extremities Exam: Normal Capillary Refill, Normal Inspection. absent: Calf Tenderness, Joint Swelling, Pedal Edema, Tenderness Additional comments: chronic discoloration on lower extremities, R>L - Back Exam Back Exam: NORMAL INSPECTION. absent: CVA tenderness (L), CVA tenderness (R) - Neurological Exam Neurological Exam: Alert, Awake, CN II-XII Intact, Oriented x3 - Psychiatric Exam Psychiatric exam: Normal Mood - Skin Skin Exam: Dry, Intact, Normal Color, Warm Assessment and Plan - Assessment and Plan (Free Text) Assessment: 82 yo M with PMH HTN, asthma, past diagnosis of Parkinson's disease, admitted for suspected NMS, found to have viral meningitis and was experiencing repetitive jerking movements of unclear etiology. After discontinuing Parkinson' s drugs and giving D2 blockers, patient's symptoms have been slowly improving Plan: 1) Acute Dystonia -Neuro questioning previous dx of Parkinson's disease; continue to hold sinemet -As per neuro, Seroquel 25mg PO BID -MRIs of brain and brainstem done yesterday -Global atrophy most prominent in frontoparietal region bilaterally. Also the cerebellar atrophy noted. Mild periventricular and deep chronic microvascular white matter ischemic change. -EEG was done; to be reviewed by neuro, awaiting results -f/u EEG 2) Sepsis secondary to viral meningitis -SIRS + source of infection meningitis on admission -LP (03/30/17): CSF: bloody, WBC: 101, CSF RBC: 26427, total protein >600, glucose: 73 -CSF Gram stain: no organisms seen -CSF culture: no growth at this time -ID consult appreciated -Continue IV acyclovir, ceftriaxone -Await serologies [place], HSV PCR -f/u CBC 3) JH -Secondary to rhabdomyolysis -Improving -Bun/Cr within normal limits -CPK down to 431 4) HTN -Home meds were held at first due to low BP, but meds started after BP was elevated -Hydrochlorothiazide 12.5 mg PO daily -Monitor BP 5)Hypokalemia -K today was 3.1 -KCl 20mEq Tab -f/u CMP 6) Asthma -Controlled 7) DVT Prophylaxis -Heparin 5000 sc Q12h
--- NOTE | 2017-03-23 12:18 | CP.PCM.PN ---
Subjective - Date & Time of Evaluation Date of Evaluation: 03/23/17 Time of Evaluation: 09:00 - Subjective Subjective: MRI: Showed no evidence of acute infarct. Global atrophy in the frontoparietal region b/l. Cerebral atrophy noted. Mild periventricular and deep chronic microvacular white matter ischemic changes. slow improvement - jerky movements mostly intentional now Objective - Vital Signs/Intake and Output Vital Signs (last 24 hours): Temp Pulse Resp BP Pulse Ox 98.7 F 101 H 13 144/85 98 03/23/17 08:25 03/23/17 10:00 03/23/17 10:00 03/23/17 08:25 03/23/17 10:00 Intake and Output: 03/23/17 03/23/17 06:59 18:59 Intake Total 1575 450 Output Total 800 Balance 775 450 - Medications Medications: Current Medications Heparin Sodium (Porcine) (Heparin) 5,000 units SC Q12 [facility] PRN Reason: Protocol Last Admin: 03/23/17 08:29 Dose: 5,000 units Hydrochlorothiazide (Microzide) 12.5 mg PO DAILY [facility] Last Admin: 03/23/17 08:29 Dose: 12.5 mg Acyclovir 500 mg/ Sodium (Chloride) 100 mls @ 100 mls/hr IVPB Q8 [facility] Last Admin: 03/23/17 08:31 Dose: 100 mls/hr Ceftriaxone Sodium 2 gm/ (Dextrose) 100 mls @ 100 mls/hr IVPB Q12H [facility] Last Admin: 03/23/17 08:30 Dose: 100 mls/hr Ampicillin 2 gm/ Sodium (Chloride) 100 mls @ 100 mls/hr IVPB 0500,1100,1700, 2300 [facility] Last Admin: 03/23/17 10:42 Dose: 100 mls/hr Potassium Chloride (K-Dur 20 Meq Er Tab) 20 meq PO DAILY [facility] Last Admin: 03/23/17 08:29 Dose: 20 meq Quetiapine Fumarate (Seroquel) 25 mg PO BID [facility] Last Admin: 03/23/17 08:30 Dose: 25 mg - Labs Labs: 03/22/17 04:20 03/23/17 10:08 PT 12.2 Seconds (9.8-13.1) 03/20/17 13:49 INR 1.1 (0.9-1.2) 03/20/17 13:49 APTT 29.1 Seconds (25.6-37.1) 03/20/17 13:49 - Constitutional Appears: Non-toxic, Chronically Ill - Head Exam Head Exam: NORMOCEPHALIC - Eye Exam Eye Exam: PERRL. absent: Scleral icterus - ENT Exam ENT Exam: Mucous Membranes Dry - Neck Exam Neck Exam: absent: Lymphadenopathy - Respiratory Exam Respiratory Exam: Decreased Breath Sounds, Clear to Ausculation Bilateral - Cardiovascular Exam Cardiovascular Exam: REGULAR RHYTHM - GI/Abdominal Exam GI & Abdominal Exam: Distended, Soft - Rectal Exam Rectal Exam: Deferred - Extremities Exam Extremities Exam: absent: Pedal Edema - Back Exam Back Exam: absent: CVA tenderness (L), CVA tenderness (R) Assessment and Plan (1) Meningitis Status: Acute (2) Neuroleptic malignant syndrome Status: Acute (3) Severe sepsis Status: Acute - Assessment and Plan (Free Text) Plan: cont iv qacyclovir await serologies for [place] , HSV PCR
[2017-03-23] MEDS ORDERED: Labetalol 5 mg/ml Inj 20ML IVP STA (15:11)
--- NOTE | 2017-03-23 20:26 | PN ---
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 PHYSICAL EXAMINATION VITAL SIGNS: Blood pressure 143/89, mean arterial pressure 107, respiratory rate 18, temperature 98.4, pulse rate 102. NEUROLOGIC: The patient is more awake, alert, and oriented to person, place, and time. Speech is clear. No sign of hallucination, no sign of suicidal ideation, no sign of confabulation. The patient follows 1-2 step command. No right and left confusion. No sign of dyskinesia or chorea movement noted. He follows command. Vuzlom-[id number] test, mild dysmetria of both hands. Febevl-bb-lsid test is intact. Rapid alternating movements intact. Extraocular movement, no sign of gaze paresis. No resting tremor. No cogwheel rigidity. The patient has been remarkably improved on holding dopamine dopaminergic as well as hydrating him. The CSF findings are possible viral etiology; however, the numbers are so high, still results are pending. The repeat MRI of the brain shows significant frontoparietal atrophy, more pronounced at left than his right side. 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 There is acute small punctate diffusion weighted image on left parietal area consistent with acute stroke process. RECOMMENDATION: I would like to continue Seroquel 25 mg twice a day and this can be continued for 3 weeks and that can be tapered off if medically stable. The patient should be on antiplatelet. I would like to start him on Ecotrin and that has to be continued. From neurological point of view, the patient is back to his baseline. At this point, I would like to sign him off if clinically indicated. Please do not hesitate to call me back. Colt Pizarro MD [email or web address]
[2017-03-24] MEDS: Acyclovir 500 MG in Sodium Chloride 0.9% 100 ML IVPB SCH ×3 (00:47→17:13)
[2017-03-24 05:34] LABS: HEMOGLOBIN 12.6 g/dL (12.0-18.0); MEAN CELL VOLUME 94.7 fl (80.0-94.0); MEAN CORPUSCULAR HEMOGLOBIN 31.5 pg (27.0-31.0); MEAN CORPUSCULAR HGB CONC 33.3 g/dL (33.0-37.0); RED CELL DISTRIBUTION WIDTH 13.4 % (11.5-14.5); WHITE BLOOD COUNT 6.9 K/uL (4.8-10.8)
[2017-03-24 05:47] LABS: ALB/GLOB RATIO 1.1 (1.0-2.1); ALBUMIN 3.3 g/dL (3.5-5.0); ALT/SGPT 85 U/L (21-72); AST/SGOT 72 U/L (17-59); BLOOD UREA NITROGEN 13 mg/dl (9-20); CALCIUM 8.5 mg/dL (8.4-10.2); GFR AFRICAN-AMERICAN > 60; GFR NON-AFRICAN AMERICAN > 60
[2017-03-24] MEDS ORDERED: Potassium Chloride 20 mEq ER Tab PO ONE (06:59)
[2017-03-24] MEDS: cefTRIAXone 2 GM in Dextrose 5% In Water 100 ML IVPB SCH (08:33)
[2017-03-24] MEDS ORDERED: Labetalol 5 mg/ml Inj 20ML IVP STA (08:45)
[2017-03-24 09:26] LABS: CERULOPLASMIN 33 mg/dL (18-36)
[2017-03-24] MEDS: Potassium Chloride 20 mEq ER Tab PO SCH (10:01)
--- NOTE | 2017-03-24 12:54 | CP.PCM.PN ---
Subjective - Date & Time of Evaluation Date of Evaluation: 03/24/17 Time of Evaluation: 07:00 - Subjective Subjective: Patient was seen and evaluated at bedside, appeared comfortable and in no acute distress, jerking choreiform movements have much improved and have almost resolved; patient reports not having these movements overnight. Tolerating medications well, no side effects noted. Ramsey was removed and patient is able to urinate on his own. He denies headache, back pain, abdominal pain, shortness of breath, leg/calf pain/swelling. Awaiting bed availability on [facility] floor to be moved from ICU. Objective - Vital Signs/Intake and Output Vital Signs (last 24 hours): Temp Pulse Resp BP Pulse Ox 98.7 F 97 H 17 149/99 H 96 03/24/17 12:00 03/24/17 10:00 03/24/17 08:00 03/24/17 12:00 03/24/17 08:00 Intake and Output: 03/24/17 03/24/17 06:59 18:59 Intake Total 1600 440 Output Total 1300 1000 Balance 300 -560 - Medications Medications: Current Medications Aspirin (Ecotrin) 81 mg PO DAILY [facility] Last Admin: 03/24/17 08:23 Dose: 81 mg Bisoprolol Fumarate (Zebeta) 5 mg PO DAILY [facility] Last Admin: 03/24/17 11:53 Dose: 5 mg Heparin Sodium (Porcine) (Heparin) 5,000 units SC Q12 [facility] PRN Reason: Protocol Last Admin: 03/24/17 08:23 Dose: 5,000 units Hydrochlorothiazide (Hydrodiuril) 25 mg PO DAILY [facility] Last Admin: 03/24/17 10:01 Dose: Not Given Acyclovir 500 mg/ Sodium (Chloride) 100 mls @ 100 mls/hr IVPB Q8 [facility] Last Admin: 03/24/17 08:23 Dose: 100 mls/hr Ceftriaxone Sodium 2 gm/ (Dextrose) 100 mls @ 100 mls/hr IVPB Q12H [facility] Last Admin: 03/24/17 08:33 Dose: 100 mls/hr Potassium Chloride (K-Dur 20 Meq Er Tab) 20 meq PO DAILY [facility] Last Admin: 03/24/17 10:01 Dose: 20 meq Quetiapine Fumarate (Seroquel) 25 mg PO BID [facility] Last Admin: 03/24/17 08:23 Dose: 25 mg - Labs Labs: 03/24/17 04:20 03/24/17 04:20 PT 12.2 Seconds (9.8-13.1) 03/20/17 13:49 INR 1.1 (0.9-1.2) 03/20/17 13:49 APTT 29.1 Seconds (25.6-37.1) 03/20/17 13:49 - Constitutional Appears: Non-toxic, No Acute Distress - Head Exam Head Exam: ATRAUMATIC - Eye Exam Eye Exam: EOMI, Normal appearance, PERRL - ENT Exam ENT Exam: Mucous Membranes Moist - Neck Exam Neck Exam: Normal Inspection - Respiratory Exam Respiratory Exam: Clear to Ausculation Bilateral, NORMAL BREATHING PATTERN. absent: Respiratory Distress - Cardiovascular Exam Cardiovascular Exam: REGULAR RHYTHM, +S1, +S2 - GI/Abdominal Exam GI & Abdominal Exam: Soft, Normal Bowel Sounds. absent: Distended, Guarding, Tenderness, Rebound - Extremities Exam Extremities Exam: Normal Capillary Refill, Normal Inspection. absent: Calf Tenderness, Joint Swelling, Pedal Edema, Tenderness Additional comments: discoloration on LE, chronic no heel ulcers - Back Exam Back Exam: NORMAL INSPECTION. absent: CVA tenderness (L), CVA tenderness (R) Additional comments: no sacral ulcers visualized - Neurological Exam Neurological Exam: Alert, Awake, CN II-XII Intact, Oriented x3 - Psychiatric Exam Psychiatric exam: Normal Mood - Skin Skin Exam: Dry, Intact, Normal Color, Warm Assessment and Plan - Assessment and Plan (Free Text) Assessment: 82 yo M with PMH with asthma, past diagnosis of Parkinson's disease admitted for suspected NMS now thought to be dopamine induced dyskinesia, and also found to have viral meningitis, experiencing jerky choreiform movements of the extremities on admission. After discontinuing Parkinson's drugs and giving D2 blockers, patient's symptoms have have been steadily improving. Plan: 1) Acute Dystonia -As per neuro, Seroquel 25mg PO BID to be tapered off by outpt f/u -MRIs of brain and brainstem -Global atrophy most prominent in frontoparietal region bilaterally. Also the cerebellar atrophy noted. Mild periventricular and deep chronic microvascular white matter ischemic change. -EEG was done; to be reviewed by neuro, awaiting results -Neuro recommends anticoag with aspirin 81mg daily -PT eval -f/u EEG 2) Viral meningitis -LP on admission- CSF: bloody, WBC: 101, CSF RBC: 87404, total protein >600, glucose: 73 -CSF Gram stain: no organisms seen -CSF culture: no growth at this time -ID consult appreciated -Continue IV acyclovir, ceftriaxone -Await serologies [place], HSV PCR 3) JH -Secondary to rhabdomyolysis -Improving -Bun/Cr within normal limits -CPK down to 116, within normal limits 4) HTN -Home meds were held at first due to low BP, but meds started after BP was elevated -Hydrochlorothiazide 12.5 mg PO daily -Bisoprolol 5mg PO daily -Monitor BP 5)Hypokalemia -K today was 3.0 -KCl 20mEq Tab -f/u CMP 6) Asthma -Controlled 7) DVT Prophylaxis -Heparin 5000 sc Q12h
--- NOTE | 2017-03-24 18:02 | CP.PCM.PN ---
Subjective - Date & Time of Evaluation Date of Evaluation: 03/24/17 Time of Evaluation: 08:00 - Subjective Subjective: discussed on rounds bacterial cultures neg thus far d/c rocephin Objective - Vital Signs/Intake and Output Vital Signs (last 24 hours): Temp Pulse Resp BP Pulse Ox 97.3 F L 82 18 173/93 H 97 03/24/17 16:16 03/24/17 17:52 03/24/17 16:16 03/24/17 17:52 03/24/17 16:16 Intake and Output: 03/24/17 03/24/17 06:59 18:59 Intake Total 1600 440 Output Total 1300 1000 Balance 300 -560 - Medications Medications: Current Medications Aspirin (Ecotrin) 81 mg PO DAILY [facility] Last Admin: 03/24/17 08:23 Dose: 81 mg Bisoprolol Fumarate (Zebeta) 5 mg PO DAILY [facility] Last Admin: 03/24/17 11:53 Dose: 5 mg Heparin Sodium (Porcine) (Heparin) 5,000 units SC Q12 [facility] PRN Reason: Protocol Last Admin: 03/24/17 08:23 Dose: 5,000 units Hydrochlorothiazide (Hydrodiuril) 25 mg PO DAILY [facility] Last Admin: 03/24/17 10:01 Dose: Not Given Acyclovir 500 mg/ Sodium (Chloride) 100 mls @ 100 mls/hr IVPB Q8 [facility] Last Admin: 03/24/17 17:13 Dose: 100 mls/hr Potassium Chloride (K-Dur 20 Meq Er Tab) 20 meq PO DAILY [facility] Last Admin: 03/24/17 10:01 Dose: 20 meq Quetiapine Fumarate (Seroquel) 25 mg PO BID [facility] Last Admin: 03/24/17 17:07 Dose: 25 mg - Labs Labs: 03/24/17 04:20 03/24/17 04:20 PT 12.2 Seconds (9.8-13.1) 03/20/17 13:49 INR 1.1 (0.9-1.2) 03/20/17 13:49 APTT 29.1 Seconds (25.6-37.1) 03/20/17 13:49 Assessment and Plan (1) Meningitis Status: Acute (2) Neuroleptic malignant syndrome Status: Acute (3) Severe sepsis Status: Acute
[2017-03-24] MEDS ORDERED: Potassium Chloride 20 mEq ER Tab PO SCH (18:34)
[2017-03-25] MEDS: Acyclovir 500 MG in Sodium Chloride 0.9% 100 ML IVPB SCH ×3 (00:24→16:59)
[2017-03-25 04:04] LABS: COPPER 109 mcg/dL (70-175); ZINC 59 mcg/dL (60-130)
[2017-03-25 07:06] LABS: BASO % 0.5 % (0.0-2.0); EOS # 1.4 K/uL (0.0-0.7); EOS % 20.3 % (0.0-4.0); HEMOGLOBIN 13.5 g/dL (12.0-18.0); LYMPH % 14.2 % (20.0-40.0); MEAN CELL VOLUME 93.8 fl (80.0-94.0); MEAN CORPUSCULAR HEMOGLOBIN 32.2 pg (27.0-31.0); MEAN CORPUSCULAR HGB CONC 34.4 g/dL (33.0-37.0); MEAN PLATELET VOLUME 8.7 fl (7.2-11.7); MONO # 0.7 K/uL (0.0-0.8); MONO % 9.4 % (0.0-10.0); NEUT # 3.9 K/uL (1.8-7.0); NEUT % 55.6 % (50.0-75.0); NRBC % 0.1 % (0.0-0.0); PLATELET COUNT 170 K/uL (130-400); RBC 4.18 Mil/uL (4.40-5.90); RED CELL DISTRIBUTION WIDTH 13.1 % (11.5-14.5)
[2017-03-25 07:27] LABS: ALB/GLOB RATIO 1.2 (1.0-2.1); ALBUMIN 3.5 g/dL (3.5-5.0); ALT/SGPT 84 U/L (21-72); AST/SGOT 78 U/L (17-59); BLOOD UREA NITROGEN 15 mg/dl (9-20); GFR AFRICAN-AMERICAN > 60; GFR NON-AFRICAN AMERICAN > 60; MAGNESIUM 1.7 MG/DL (1.6-2.3)
[2017-03-25 08:33] VITALS: O2SAT 97
[2017-03-25 09:46] LABS: EOSINOPHIL 19 % (0-7); LYMPHOCYTE 16 % (20-50); MONOCYTE 8 % (0-10); NEUTROPHIL 57 % (42-75); PLATELET ESTIMATE NORMAL (NORMAL); TOTAL CELLS COUNTED 100
[2017-03-25 09:47] LABS: LARGE PLATELETS PRESENT
[2017-03-25] MEDS ORDERED: Potassium Chloride 20 mEq/15 ml LIQ UD PO SCH (11:15)
--- NOTE | 2017-03-25 13:04 | CP.PCM.PN ---
Subjective - Date & Time of Evaluation Date of Evaluation: 03/25/17 Time of Evaluation: 09:00 - Subjective Subjective: afeb OFF ROCEPHIN IV ACYCLOVIR IN PROGRESS AWAIT NEURO RE-EVAL Objective - Vital Signs/Intake and Output Vital Signs (last 24 hours): Temp Pulse Resp BP Pulse Ox 98.6 F 78 20 174/96 H 97 03/25/17 09:00 03/25/17 09:16 03/25/17 09:00 03/25/17 09:16 03/25/17 09:00 - Medications Medications: Current Medications Amlodipine Besylate (Norvasc) 2.5 mg PO DAILY [facility] Last Admin: 03/25/17 09:16 Dose: 2.5 mg Aspirin (Ecotrin) 81 mg PO DAILY [facility] Last Admin: 03/25/17 09:15 Dose: 81 mg Bisoprolol Fumarate (Zebeta) 5 mg PO DAILY [facility] Last Admin: 03/25/17 09:16 Dose: 5 mg Heparin Sodium (Porcine) (Heparin) 5,000 units SC Q12 [facility] PRN Reason: Protocol Last Admin: 03/25/17 09:15 Dose: 5,000 units Hydrochlorothiazide (Hydrodiuril) 50 mg PO DAILY [facility] Last Admin: 03/25/17 09:16 Dose: 50 mg Acyclovir 500 mg/ Sodium (Chloride) 100 mls @ 100 mls/hr IVPB Q8 [facility] Last Admin: 03/25/17 09:14 Dose: 100 mls/hr Potassium Chloride (Potassium Chloride Oral Soln) 20 meq PO DAILY [facility] Quetiapine Fumarate (Seroquel) 25 mg PO BID [facility] Last Admin: 03/25/17 09:16 Dose: 25 mg - Labs Labs: 03/25/17 06:35 03/25/17 06:35 PT 12.2 Seconds (9.8-13.1) 03/20/17 13:49 INR 1.1 (0.9-1.2) 03/20/17 13:49 APTT 29.1 Seconds (25.6-37.1) 03/20/17 13:49 - Constitutional Appears: Non-toxic, Cachectic, Chronically Ill - Head Exam Head Exam: NORMOCEPHALIC - Eye Exam Eye Exam: PERRL. absent: Scleral icterus - ENT Exam ENT Exam: Mucous Membranes Dry, Normal External Ear Exam - Neck Exam Neck Exam: absent: Lymphadenopathy - Respiratory Exam Respiratory Exam: Decreased Breath Sounds, Clear to Ausculation Bilateral - Cardiovascular Exam Cardiovascular Exam: REGULAR RHYTHM - GI/Abdominal Exam GI & Abdominal Exam: Distended. absent: Tenderness - Rectal Exam Rectal Exam: Deferred - Exam Exam: NORMAL INSPECTION - Extremities Exam Extremities Exam: absent: Pedal Edema - Back Exam Back Exam: absent: CVA tenderness (L), CVA tenderness (R) Assessment and Plan (1) Meningitis Status: Acute (2) Neuroleptic malignant syndrome Status: Acute (3) Severe sepsis Status: Acute
[2017-03-25 16:13] VITALS: BP 147/58; PULSE 86; RESP 18; TEMP 97.5
--- NOTE | 2017-03-25 16:47 | CP.PCM.DIS ---
<Jose Lovella - Last Filed: 03/25/17 16:44> Provider - Provider Date of Admission: 03/20/17 17:06 Attending physician: Monie Acevedo MD Primary care physician: [facility]: Dr. Cramer Consults: Neurology Infectious Disease Time Spent in preparation of Discharge (in minutes): 40 Diagnosis - Discharge Diagnosis (1) Acute dystonia due to drugs Status: Resolved Hospital Course - Lab Results Lab Results: Most Recent Lab Values WBC 7.0 K/uL (4.8-10.8) 03/25/17 06:35 RBC 4.18 Mil/uL (4.40-5.90) L 03/25/17 06:35 Hgb 13.5 g/dL (12.0-18.0) 03/25/17 06:35 Hct 39.2 % (35.0-51.0) 03/25/17 06:35 MCV 93.8 fl (80.0-94.0) 03/25/17 06:35 MCH 32.2 pg (27.0-31.0) H 03/25/17 06:35 MCHC 34.4 g/dL (33.0-37.0) 03/25/17 06:35 RDW 13.1 % (11.5-14.5) 03/25/17 06:35 Plt Count 170 K/uL (130-400) 03/25/17 06:35 MPV 8.7 fl (7.2-11.7) 03/25/17 06:35 Neut % (Auto) 55.6 % (50.0-75.0) 03/25/17 06:35 Lymph % (Auto) 14.2 % (20.0-40.0) L 03/25/17 06:35 [place] % (Auto) 9.4 % (0.0-10.0) 03/25/17 06:35 Eos % (Auto) 20.3 % (0.0-4.0) H 03/25/17 06:35 Baso % (Auto) 0.5 % (0.0-2.0) 03/25/17 06:35 Neut # 3.9 K/uL (1.8-7.0) 03/25/17 06:35 Lymph # 1.0 K/uL (1.0-4.3) 03/25/17 06:35 [place] # 0.7 K/uL (0.0-0.8) 03/25/17 06:35 Eos # 1.4 K/uL (0.0-0.7) H 03/25/17 06:35 Baso # 0.0 K/uL (0.0-0.2) 03/25/17 06:35 Neutrophils % (Manual) 57 % (42-75) 03/25/17 06:35 Lymphocytes % (Manual) 16 % (20-50) L 03/25/17 06:35 Monocytes % (Manual) 8 % (0-10) 03/25/17 06:35 Eosinophils % (Manual) 19 % (0-7) H 03/25/17 06:35 Platelet Estimate Normal (NORMAL) 03/25/17 06:35 Large Platelets Present 03/25/17 06:35 RBC Morphology Normal (NORMAL) 03/25/17 06:35 ESR 47 mm/hr (0-20) H 03/23/17 04:20 PT 12.2 Seconds (9.8-13.1) 03/20/17 13:49 INR 1.1 (0.9-1.2) 03/20/17 13:49 APTT 29.1 Seconds (25.6-37.1) 03/20/17 13:49 pO2 49 mm/Hg (30-55) 03/20/17 18:05 VBG pH 7.34 (7.32-7.43) 03/20/17 18:05 VBG pCO2 43 mmHg (40-60) 03/20/17 18:05 VBG HCO3 22.5 mmol/L 03/20/17 18:05 VBG Total CO2 24.5 mmol/L (22-28) 03/20/17 18:05 VBG O2 Sat (Calc) 84.4 % (40-65) H 03/20/17 18:05 VBG Base Excess -2.6 mmol/L (0.0-2.0) L 03/20/17 18:05 VBG Potassium 3.4 mmol/L (3.6-5.2) L 03/20/17 18:05 Sodium 140.0 mmol/L (132-148) 03/20/17 18:05 Chloride 103.0 mmol/L (98-107) 03/20/17 18:05 Glucose 116 mg/dL (75-110) H 03/20/17 18:05 Lactate 1.7 mmol/L (0.7-2.1) 03/20/17 18:05 FiO2 21.0 % 03/20/17 18:05 Sodium 139 mmol/l (132-148) 03/25/17 06:35 Potassium 3.7 MMOL/L (3.6-5.0) 03/25/17 06:35 Chloride 103 mmol/L (98-107) 03/25/17 06:35 Carbon Dioxide 29 mmol/L (22-30) 03/25/17 06:35 Anion Gap 11 (10-20) 03/25/17 06:35 BUN 15 mg/dl (9-20) 03/25/17 06:35 Creatinine 0.9 mg/dL (0.8-1.5) 03/25/17 06:35 Est GFR ( Amer) > 60 03/25/17 06:35 Est GFR (Non-Af Amer) > 60 03/25/17 06:35 POC Glucose (mg/dL) 138 mg/dL (65-110) H 03/20/17 13:34 Random Glucose 109 mg/dL (75-110) 03/25/17 06:35 Serum Osmolality 300 mosm/kg (272-300) 03/22/17 08:59 Calcium 9.0 mg/dL (8.4-10.2) 03/25/17 06:35 Phosphorus 2.5 mg/dl (2.5-4.5) 03/25/17 06:35 Magnesium 1.7 MG/DL (1.6-2.3) 03/25/17 06:35 Total Bilirubin 0.4 mg/dl (0.2-1.3) 03/25/17 06:35 AST 78 U/L (17-59) H 03/25/17 06:35 ALT 84 U/L (21-72) H 03/25/17 06:35 Alkaline Phosphatase 67 U/L (38-126) 03/25/17 06:35 Total Creatine Kinase 166 U/L (55-170) 03/24/17 04:20 C-React Prot High Sens > 15.00 mg/L (1.00-3.00) H 03/23/17 04:20 Total Protein 6.6 G/DL (6.3-8.2) 03/25/17 06:35 Albumin 3.5 g/dL (3.5-5.0) 03/25/17 06:35 Globulin 3.1 gm/dL (2.2-3.9) 03/25/17 06:35 Albumin/Globulin Ratio 1.2 (1.0-2.1) 03/25/17 06:35 Ceruloplasmin 33 mg/dL (18-36) 03/23/17 04:20 Vitamin B12 901 pg/mL (239-931) 03/24/17 04:20 25-OH Vitamin D Total 15.4 NG/ML (30.0-100.0) L 03/24/17 04:20 Procalcitonin 0.10 NG/ML (0.19-0.49) L 03/21/17 13:18 TSH 3rd Generation 1.81 mIU/ML (0.46-4.68) 03/24/17 04:20 Venous Blood Potassium 3.4 mmol/L (3.6-5.2) L 03/20/17 18:05 Urine Color Yellow (YELLOW) 03/20/17 14:20 Urine Clarity Slight-cloudy (Clear) 03/20/17 14:20 Urine pH 6.0 (5.0-8.0) 03/20/17 14:20 Ur Specific [place] 1.016 (1.003-1.030) 03/20/17 14:20 Urine Protein 100 mg/dL (NEGATIVE) 03/20/17 14:20 Urine Glucose (UA) Negative mg/dL (Normal) 03/20/17 14:20 Urine Ketones Trace mg/dL (NEGATIVE) H 03/20/17 14:20 Urine Blood Large (NEGATIVE) 03/20/17 14:20 Urine Nitrate Negative (NEGATIVE) 03/20/17 14:20 Urine Bilirubin Negative (NEGATIVE) 03/20/17 14:20 Urine Urobilinogen 0.2 mg/dL (0.2-1.0) 03/20/17 14:20 Ur Leukocyte Esterase Negative [place]/uL (Negative) 03/20/17 14:20 Urine RBC (Auto) 7 /hpf (0-3) H 03/20/17 14:20 Urine Microscopic WBC 2 /hpf (0-5) 03/20/17 14:20 Ur Squamous Epith Cells 1 /hpf (0-5) 03/20/17 14:20 Ur Renal Epithelial Cell < 1 /hpf (0-3) 03/20/17 14:20 Hyaline Casts >20 /hpf (0-2) H 03/20/17 14:20 Urine Myoglobin TNP 03/20/17 17:50 Urine Osmolality 746 mosm/kg (300-1000) 03/22/17 15:05 Ur Random Creatinine 70.8 mg/dL 03/20/17 22:30 Ur Random Sodium 144 meq/L 03/22/17 15:05 Ur Random Potassium 21.1 mmol/L 03/22/17 15:05 Fluid Type Spinal fluid 03/20/17 16:40 CSF Volume 1 mL (0-1) 03/20/17 16:40 CSF Appearance Bloody (CLEAR) 03/20/17 16:40 CSF WBC 101.0 /mm3 (0.0-5.0) H 03/20/17 16:40 CSF RBC 99293.0 /mm3 (0.0-0.0) H 03/20/17 16:40 CSF Total Cell Counted 100 (0-0) H 03/20/17 16:40 CSF Neutrophils 86 % (0-0) H 03/20/17 16:40 CSF Lymphocytes 9.0 % (0-0) H 03/20/17 16:40 CSF Monos/Macrophages 5 % (0-0) H 03/20/17 16:40 CSF Comment Short sample 03/20/17 16:40 CSF Glucose 73 mg/dL (40-70) H 03/20/17 16:40 CSF Total Protein > 600.0 mg/dL (12-60) H* 03/20/17 16:40 CSF VDRL Nonreactive (Nonreactive) 03/20/17 16:40 Vancomycin Trough 29.3 ug/mL (5.0-10.0) H 03/22/17 04:20 Copper 109 mcg/dL (70-175) 03/23/17 04:20 Zinc 59 mcg/dL (60-130) L 03/23/17 04:20 RPR Nonreactive (NONREACTIVE) 03/22/17 20:46 Cryptococcus Ag Screen Not detected (Not Detected) 03/22/17 04:20 HIV 1&2 Antibody Screen Negative (NEGATIVE) 03/21/17 13:18 - Hospital Course Hospital Course: Pt is 82 yo M with past dx Parkinson's disease, HTN 20 yrs ago admitted due to acute presentation of choreiform movements, also met SIRS criteria in ED. Pt had JH, suspected that it was caused by rhabdomyolysis, caused by involuntary movements. Neuro and ID were consulted. Spinal tap done in ED, meningitis suspected by ID and pt started on ceftiraxone and acyclovir. Neuro held parkinson's medications, gave D2 blockers, and started seroquel. Pt's symptoms gradually resolved, pt was also hydrated and CPK came down to value within normal limits. BP was low at first, meds held, but then started to spike. Pt had several high BP measurements and medications were adjusted- BP today midday was controlled. Physical therapy eval patient, patient to be discharged to TCU, as per ID to continue acyclovir in TCU, and as per neuro to continue meds and f/ u outpatient. - Date & Time of H&P Date of H&P: 03/20/17 Time of H&P: 19:51 Discharge Exam - Head Exam Head Exam: NORMAL INSPECTION, NORMOCEPHALIC - Eye Exam Eye Exam: EOMI, Normal appearance, PERRL - ENT Exam ENT Exam: Mucous Membranes Moist - Neck Exam Neck exam: Normal Inspection - Respiratory Exam Respiratory Exam: Clear to PA & Lateral, NORMAL BREATHING PATTERN, UNREMARKABLE - Cardiovascular Exam Cardiovascular Exam: REGULAR RHYTHM, +S1, +S2 - GI/Abdominal Exam GI & Abdominal Exam: Normal Bowel Sounds, Soft, Unremarkable - Extremities Exam Extremities exam: normal capillary refill, normal inspection, pedal pulses present Additional comments: chronic discoloration on LE - Back Exam Back exam: NORMAL INSPECTION - Neurological Exam Neurological exam: Alert, CN II-XII Intact, Oriented x3 - Psychiatric Exam Psychiatric exam: Normal Mood - Skin Skin Exam: Dry, Intact, Normal Color, Warm Discharge Plan - Discharge Medications Prescriptions: Albuterol HFA [Ventolin HFA 90 mcg/actuation (8 g)] 2 puff IH [id number] PRN #60 puff PRN Reason: Wheezing amLODIPine [Norvasc] 2.5 mg PO DAILY #30 tab Bisoprolol [Zebeta] 5 mg PO DAILY #30 hydroCHLOROthiazide [Hydrodiuril] 50 mg PO DAILY #30 tab Potassium Chloride [K-Dur 20 mEq ER Tab] 20 meq PO DAILY #30 QUEtiapine [Seroquel] 25 mg PO BID #30 tab - Follow Up Plan Condition: SERIOUS Disposition: REHAB FACILITY/REHAB UNIT Instructions: Viral Meningitis (DC), Parkinson Disease (DC) Additional Instructions: continue with medications partake in rehab exercise for strengthening please follow up with Dr. mcfarlane for Seroquel tapering after TCU discharge. Referrals: Colt Mcfarlane MD [Medical Doctor] - <Minda Bautista - Last Filed: 03/26/17 09:39> Provider - Provider Date of Admission: 03/20/17 17:06 Attending physician: Monie Acevedo MD Hospital Course - Lab Results Lab Results: Micro Results 03/24/17 16:40 Nose MRSA Culture (Admit) - Final MRSA NOT DETECTED Most Recent Lab Values WBC 7.0 K/uL (4.8-10.8) 03/25/17 06:35 RBC 4.18 Mil/uL (4.40-5.90) L 03/25/17 06:35 Hgb 13.5 g/dL (12.0-18.0) 03/25/17 06:35 Hct 39.2 % (35.0-51.0) 03/25/17 06:35 MCV 93.8 fl (80.0-94.0) 03/25/17 06:35 MCH 32.2 pg (27.0-31.0) H 03/25/17 06:35 MCHC 34.4 g/dL (33.0-37.0) 03/25/17 06:35 RDW 13.1 % (11.5-14.5) 03/25/17 06:35 Plt Count 170 K/uL (130-400) 03/25/17 06:35 MPV 8.7 fl (7.2-11.7) 03/25/17 06:35 Neut % (Auto) 55.6 % (50.0-75.0) 03/25/17 06:35 Lymph % (Auto) 14.2 % (20.0-40.0) L 03/25/17 06:35 [place] % (Auto) 9.4 % (0.0-10.0) 03/25/17 06:35 Eos % (Auto) 20.3 % (0.0-4.0) H 03/25/17 06:35 Baso % (Auto) 0.5 % (0.0-2.0) 03/25/17 06:35 Neut # 3.9 K/uL (1.8-7.0) 03/25/17 06:35 Lymph # 1.0 K/uL (1.0-4.3) 03/25/17 06:35 [place] # 0.7 K/uL (0.0-0.8) 03/25/17 06:35 Eos # 1.4 K/uL (0.0-0.7) H 03/25/17 06:35 Baso # 0.0 K/uL (0.0-0.2) 03/25/17 06:35 Neutrophils % (Manual) 57 % (42-75) 03/25/17 06:35 Lymphocytes % (Manual) 16 % (20-50) L 03/25/17 06:35 Monocytes % (Manual) 8 % (0-10) 03/25/17 06:35 Eosinophils % (Manual) 19 % (0-7) H 03/25/17 06:35 Platelet Estimate Normal (NORMAL) 03/25/17 06:35 Large Platelets Present 03/25/17 06:35 RBC Morphology Normal (NORMAL) 03/25/17 06:35 ESR 47 mm/hr (0-20) H 03/23/17 04:20 PT 12.2 Seconds (9.8-13.1) 03/20/17 13:49 INR 1.1 (0.9-1.2) 03/20/17 13:49 APTT 29.1 Seconds (25.6-37.1) 03/20/17 13:49 pO2 49 mm/Hg (30-55) 03/20/17 18:05 VBG pH 7.34 (7.32-7.43) 03/20/17 18:05 VBG pCO2 43 mmHg (40-60) 03/20/17 18:05 VBG HCO3 22.5 mmol/L 03/20/17 18:05 VBG Total CO2 24.5 mmol/L (22-28) 03/20/17 18:05 VBG O2 Sat (Calc) 84.4 % (40-65) H 03/20/17 18:05 VBG Base Excess -2.6 mmol/L (0.0-2.0) L 03/20/17 18:05 VBG Potassium 3.4 mmol/L (3.6-5.2) L 03/20/17 18:05 Sodium 140.0 mmol/L (132-148) 03/20/17 18:05 Chloride 103.0 mmol/L (98-107) 03/20/17 18:05 Glucose 116 mg/dL (75-110) H 03/20/17 18:05 Lactate 1.7 mmol/L (0.7-2.1) 03/20/17 18:05 FiO2 21.0 % 03/20/17 18:05 Sodium 139 mmol/l (132-148) 03/25/17 06:35 Potassium 3.7 MMOL/L (3.6-5.0) 03/25/17 06:35 Chloride 103 mmol/L (98-107) 03/25/17 06:35 Carbon Dioxide 29 mmol/L (22-30) 03/25/17 06:35 Anion Gap 11 (10-20) 03/25/17 06:35 BUN 15 mg/dl (9-20) 03/25/17 06:35 Creatinine 0.9 mg/dL (0.8-1.5) 03/25/17 06:35 Est GFR ( Amer) > 60 03/25/17 06:35 Est GFR (Non-Af Amer) > 60 03/25/17 06:35 POC Glucose (mg/dL) 138 mg/dL (65-110) H 03/20/17 13:34 Random Glucose 109 mg/dL (75-110) 03/25/17 06:35 Serum Osmolality 300 mosm/kg (272-300) 03/22/17 08:59 Calcium 9.0 mg/dL (8.4-10.2) 03/25/17 06:35 Phosphorus 2.5 mg/dl (2.5-4.5) 03/25/17 06:35 Magnesium 1.7 MG/DL (1.6-2.3) 03/25/17 06:35 Total Bilirubin 0.4 mg/dl (0.2-1.3) 03/25/17 06:35 AST 78 U/L (17-59) H 03/25/17 06:35 ALT 84 U/L (21-72) H 03/25/17 06:35 Alkaline Phosphatase 67 U/L (38-126) 03/25/17 06:35 Total Creatine Kinase 166 U/L (55-170) 03/24/17 04:20 C-React Prot High Sens > 15.00 mg/L (1.00-3.00) H 03/23/17 04:20 Total Protein 6.6 G/DL (6.3-8.2) 03/25/17 06:35 Albumin 3.5 g/dL (3.5-5.0) 03/25/17 06:35 Globulin 3.1 gm/dL (2.2-3.9) 03/25/17 06:35 Albumin/Globulin Ratio 1.2 (1.0-2.1) 03/25/17 06:35 Ceruloplasmin 33 mg/dL (18-36) 03/23/17 04:20 Vitamin B12 901 pg/mL (239-931) 03/24/17 04:20 25-OH Vitamin D Total 15.4 NG/ML (30.0-100.0) L 03/24/17 04:20 Procalcitonin 0.10 NG/ML (0.19-0.49) L 03/21/17 13:18 TSH 3rd Generation 1.81 mIU/ML (0.46-4.68) 03/24/17 04:20 Venous Blood Potassium 3.4 mmol/L (3.6-5.2) L 03/20/17 18:05 Urine Color Yellow (YELLOW) 03/20/17 14:20 Urine Clarity Slight-cloudy (Clear) 03/20/17 14:20 Urine pH 6.0 (5.0-8.0) 03/20/17 14:20 Ur Specific [place] 1.016 (1.003-1.030) 03/20/17 14:20 Urine Protein 100 mg/dL (NEGATIVE) 03/20/17 14:20 Urine Glucose (UA) Negative mg/dL (Normal) 03/20/17 14:20 Urine Ketones Trace mg/dL (NEGATIVE) H 03/20/17 14:20 Urine Blood Large (NEGATIVE) 03/20/17 14:20 Urine Nitrate Negative (NEGATIVE) 03/20/17 14:20 Urine Bilirubin Negative (NEGATIVE) 03/20/17 14:20 Urine Urobilinogen 0.2 mg/dL (0.2-1.0) 03/20/17 14:20 Ur Leukocyte Esterase Negative [place]/uL (Negative) 03/20/17 14:20 Urine RBC (Auto) 7 /hpf (0-3) H 03/20/17 14:20 Urine Microscopic WBC 2 /hpf (0-5) 03/20/17 14:20 Ur Squamous Epith Cells 1 /hpf (0-5) 03/20/17 14:20 Ur Renal Epithelial Cell < 1 /hpf (0-3) 03/20/17 14:20 Hyaline Casts >20 /hpf (0-2) H 03/20/17 14:20 Urine Myoglobin TNP 03/20/17 17:50 Urine Osmolality 746 mosm/kg (300-1000) 03/22/17 15:05 Ur Random Creatinine 70.8 mg/dL 03/20/17 22:30 Ur Random Sodium 144 meq/L 03/22/17 15:05 Ur Random Potassium 21.1 mmol/L 03/22/17 15:05 Fluid Type Spinal fluid 03/20/17 16:40 CSF Volume 1 mL (0-1) 03/20/17 16:40 CSF Appearance Bloody (CLEAR) 03/20/17 16:40 CSF WBC 101.0 /mm3 (0.0-5.0) H 03/20/17 16:40 CSF RBC 16677.0 /mm3 (0.0-0.0) H 03/20/17 16:40 CSF Total Cell Counted 100 (0-0) H 03/20/17 16:40 CSF Neutrophils 86 % (0-0) H 03/20/17 16:40 CSF Lymphocytes 9.0 % (0-0) H 03/20/17 16:40 CSF Monos/Macrophages 5 % (0-0) H 03/20/17 16:40 CSF Comment Short sample 03/20/17 16:40 CSF Glucose 73 mg/dL (40-70) H 03/20/17 16:40 CSF Total Protein > 600.0 mg/dL (12-60) H* 03/20/17 16:40 CSF VDRL Nonreactive (Nonreactive) 03/20/17 16:40 Vancomycin Trough 29.3 ug/mL (5.0-10.0) H 03/22/17 04:20 Copper 109 mcg/dL (70-175) 03/23/17 04:20 Zinc 59 mcg/dL (60-130) L 03/23/17 04:20 Serum Immunofixation Not detected (Not Detected) 03/23/17 04:20 RPR Nonreactive (NONREACTIVE) 03/22/17 20:46 Cryptococcus Ag Screen Not detected (Not Detected) 03/22/17 04:20 West Nile Virus IgG Ab 0.11 03/23/17 14:40 West Nile Virus IgM Ab 0.03 03/23/17 14:40 Hepatitis A IgM Ab Negative (NEGATIVE) 03/25/17 14:09 Hep Bs Antigen Negative (NEGATIVE) 03/25/17 14:09 Hep B Core IgM Ab Negative (NEGATIVE) 03/25/17 14:09 Hepatitis C Antibody Reactive (NEGATIVE) H 03/25/17 14:09 HIV 1&2 Antibody Screen Negative (NEGATIVE) 03/21/17 13:18 Discharge Exam - Additional Findings Additional findings: ADDENDUM ATTENDING NOTE PATIENT SEEN AND EXAMINED. CASE DISCUSSED WITH RESIDENT. AGREE WITH PLAN.
[2017-03-25 20:18] LABS: WNV AB IGM 0.03
[2017-03-25 21:08] LABS: HEPATITIS B SURFACE AG NEGATIVE (NEGATIVE)
[2017-03-25 21:13] LABS: HEPATITIS A IGM NEGATIVE (NEGATIVE); HEPATITIS B CORE AB NEGATIVE (NEGATIVE)
[2017-03-25 22:33] LABS: HEPATITIS C ANTIBODY REACTIVE (NEGATIVE)
[2017-03-28 12:23] LABS: HSV 1 DNA Not Detected (Not Detected); HSV 2 DNA Not Detected (Not Detected); SPECIMEN SOURCE CSF
== END 2017-03-25 21:20 | DRG 871 ==
LOC: H.ER 13:24 → H.ERHOLD 17:06 → H.TEL 19:14 → H.ICU/CCU 22:35 → H.MEDSURG1 03-24 14:27
PROVIDERS: ADMIT Family Medicine Geriatric Medicine; ATTEND Family Medicine Geriatric Medicine
DX: A41.9 Sepsis, unspecified organism (principal); G21.0 Malignant neuroleptic syndrome; N17.9 Acute kidney failure, unspecified; M62.82 Rhabdomyolysis; A87.9 Viral meningitis, unspecified; G24.02 Drug induced acute dystonia; G20 Parkinson's disease; R65.20 Severe sepsis without septic shock; I10 Essential (primary) hypertension; J45.909 Unspecified asthma, uncomplicated; Z91.19 Patient's noncompliance with other medical treatment and regimen; Z87.891 Personal history of nicotine dependence

== ENCOUNTER 2017-03-25 16:20 | Inpatient (IN) | payer MEDICARE ==
[2017-03-25 21:25] VITALS: BMI 23.3
[2017-03-26] MEDS: Acyclovir 500 MG in Sodium Chloride 0.9% 100 ML IVPB SCH ×3 (05:09→20:40)
[2017-03-26 07:26] LABS: HEMOGLOBIN 13.9 g/dL (12.0-18.0); MEAN CELL VOLUME 94.2 fl (80.0-94.0); MEAN CORPUSCULAR HEMOGLOBIN 32.4 pg (27.0-31.0); MEAN CORPUSCULAR HGB CONC 34.4 g/dL (33.0-37.0); RBC 4.29 Mil/uL (4.40-5.90); RED CELL DISTRIBUTION WIDTH 13.7 % (11.5-14.5)
[2017-03-26 07:36] LABS: ALB/GLOB RATIO 1.2 (1.0-2.1); ALBUMIN 3.8 g/dL (3.5-5.0); ALT/SGPT 105 U/L (21-72); AST/SGOT 103 U/L (17-59); BLOOD UREA NITROGEN 21 mg/dl (9-20); CALCIUM 9.2 mg/dL (8.4-10.2); GFR AFRICAN-AMERICAN > 60; GFR NON-AFRICAN AMERICAN > 60
[2017-03-26 07:42] LABS: INR 1.1 (0.9-1.2); PARTIAL THROMBOPLASTIN TIME 32.3 Seconds (25.6-37.1)
[2017-03-26] MEDS: Potassium Chloride 20 mEq ER Tab PO SCH (08:46)
[2017-03-26] MEDS ORDERED: Simethicone 80 mg Chewtab PO PRN (11:39)
--- NOTE | 2017-03-26 13:27 | CP.PCM.HP ---
<Racheal Lovell - Last Filed: 03/26/17 13:30> History of Present Illness - History of Present Illness History of Present Illness: 82 yo M with past medical history of HTN, asthma, past diagnosis of parkinson's disease admitted to TCU for physical therapy and rehab after 5 day hospital stay at [facility] for since resolved acute dystonia and choreiform movements. PMD: Dr. Cramer @ [facility] PMH: asthma, HTN, past dx of parkinson's disease Allergies: NKDA Medications: Seroquel 25 PO BID, Amlodipine 2.5 mg PO daily, Bisoprolol 5mg PO Daily, HCTZ 50mg PO daily, K-Dur 20meq tab PO daily Past Surgical Hx: none Social History: occasional EtOH, denies tobacco, drugs Hospital Course Pt was admitted due to acute presentation of choreiform movements, also met SIRS criteria in ED. Pt had JH, suspected that it was caused by rhabdomyolysis , caused by involuntary movements. Neuro and ID were consulted. Spinal tap done in ED, meningitis suspected by ID and pt started on ceftiraxone and acyclovir. Neuro held parkinson's medications, gave D2 blockers, and started seroquel. Pt' s symptoms gradually resolved, pt was also hydrated and CPK came down to value within normal limits. BP was low at first, meds held, but then started to spike and BP was controlled. Physical therapy eval patient, and pt was discharged to TCU. Present on Admission - Present on Admission Any Indicators Present on Admission: No Review of Systems - Review of Systems All systems: reviewed and no additional remarkable complaints except - Constitutional Constitutional: As Per HPI - EENT Eyes: As Per HPI Ears: As Per HPI Nose/Mouth/Throat: As Per HPI - Cardiovascular Cardiovascular: As Per HPI - Respiratory Respiratory: As Per HPI - Gastrointestinal Gastrointestinal: As Per HPI Additional comments: Gassy - Genitourinary Genitourinary: As Per HPI - Reproductive: Male Reproductive:Male: As Per HPI - Musculoskeletal Musculoskeletal: As Per HPI - Integumentary Integumentary: As Per HPI - Neurological Neurological: As Per HPI - Psychiatric Psychiatric: As Per HPI - Endocrine Endocrine: As Per HPI - Hematologic/Lymphatic Hematologic: As Per HPI Past Patient History - Infectious Disease Hx of Infectious Diseases: None - Past Medical History & Family History Past Medical History?: Yes - Past Social History Smoking Status: Former Smoker Alcohol: Occasional Drugs: Denies - CARDIAC Hx Cardiac Disorders: Yes Hx Congestive Heart Failure: No Hx Hypertension: Yes - PULMONARY Hx Respiratory Disorders: Yes Hx Asthma: Yes Hx Chronic Obstructive Pulmonary Disease (COPD): No - NEUROLOGICAL Hx Neurological Disorder: Yes Hx Meningitis: Yes (possible) Hx Parkinson's Disease: Yes - HEENT Hx HEENT Problems: No - RENAL Hx Chronic Kidney Disease: No - ENDOCRINE/METABOLIC Hx Endocrine Disorders: No - HEMATOLOGICAL/ONCOLOGICAL Hx Blood Disorders: No - INTEGUMENTARY Hx Dermatological Problems: No - MUSCULOSKELETAL/RHEUMATOLOGICAL Hx Musculoskeletal Disorders: Yes Hx Falls: No Hx Rhabdomyolysis: Yes - GASTROINTESTINAL Hx Gastrointestinal Disorders: No - GENITOURINARY/GYNECOLOGICAL Hx Genitourinary Disorders: No - PSYCHIATRIC Hx Psychophysiologic Disorder: No Hx Substance Use: No - SURGICAL HISTORY Hx Surgeries: No - ANESTHESIA Hx Anesthesia: No Meds Allergies/Adverse Reactions: Allergies Allergy/AdvReac Type Severity Reaction Status Date / Time No Known Allergies Allergy Verified 11/26/15 12:27 Physical Exam - Constitutional Appears: Non-toxic, No Acute Distress - Head Exam Head Exam: ATRAUMATIC, NORMAL INSPECTION, NORMOCEPHALIC - Eye Exam Eye Exam: EOMI, Normal appearance, PERRL - ENT Exam ENT Exam: Mucous Membranes Moist - Neck Exam Neck exam: Positive for: Normal Inspection - Respiratory Exam Respiratory Exam: Clear to Auscultation Bilateral, NORMAL BREATHING PATTERN. absent: Respiratory Distress - Cardiovascular Exam Cardiovascular Exam: REGULAR RHYTHM, +S1, +S2 - GI/Abdominal Exam GI & Abdominal Exam: Normal Bowel Sounds, Soft. absent: Distended, Tenderness - Extremities Exam Extremities exam: Positive for: normal capillary refill, normal inspection, pedal pulses present. Negative for: calf tenderness, joint swelling, pedal edema, tenderness Additional comments: chronic skin discoloration on R lower extremity - Back Exam Back exam: NORMAL INSPECTION - Neurological Exam Neurological exam: Alert, CN II-XII Intact, Oriented x3 Additional comments: no choreiform movements observed, no cogwheel rigidity - Psychiatric Exam Psychiatric exam: Normal Affect, Normal Mood - Skin Skin Exam: Dry, Intact, Normal Color, Warm Results - Vital Signs Recent Vital Signs: Last Vital Signs Temp 97.5 F L 03/26/17 08:43 Pulse 83 03/26/17 08:46 Resp 20 03/26/17 08:43 BP 149/86 03/26/17 08:46 Pulse Ox 99 03/26/17 08:43 - Labs Result Diagrams: 03/26/17 05:30 03/26/17 05:30 Labs: Laboratory Results - last 24 hr 03/26/17 03/26/17 03/26/17 05:30 05:30 05:30 WBC 8.0 RBC 4.29 L Hgb 13.9 Hct 40.3 MCV 94.2 H MCH 32.4 H MCHC 34.4 RDW 13.7 Plt Count 186 PT 12.0 INR 1.1 APTT 32.3 Sodium 138 Potassium 4.0 Chloride 102 Carbon Dioxide 31 H Anion Gap 9 L BUN 21 H Creatinine 0.9 Est GFR ( Amer) > 60 Est GFR (Non-Af Amer) > 60 Random Glucose 112 H Calcium 9.2 Total Bilirubin 0.5 AST 103 H D ALT 105 H D Alkaline Phosphatase 73 Total Protein 7.1 Albumin 3.8 Globulin 3.2 Albumin/Globulin Ratio 1.2 Assessment & Plan - Assessment and Plan (Free Text) Assessment: 82 yo M with PMH HTN, asthma, acute dystonia with choreiform movements, past dx parkinson's disease, possible viral meningitis in TCU for physical therapy/ rehab after 5 day stay due to since mostly resolved choreiform movements Plan: 1) Acute Dystonia -Continue physical therapy -As per neuro, Seroquel 25mg PO BID to be tapered off by outpt f/u -MRIs of brain and brainstem: Global atrophy most prominent in frontoparietal region bilaterally. Also the cerebellar atrophy noted. Mild periventricular and deep chronic microvascular white matter ischemic change. -EEG was done; to be reviewed by neuro, awaiting results -Anticoag with aspirin 81mg daily -f/u EEG 2) Viral meningitis -LP on admission- CSF: bloody, WBC: 101, CSF RBC: 08424, total protein >600, glucose: 73 -CSF Gram stain: no organisms seen -CSF culture: no growth at this time -No fevers, no elevated WBC at this time -ID consult appreciated -Continue IV acyclovir -Await serologies [place], HSV PCR 3) HTN -Continue with Amlodipine 2.5 PO daily, Bisoprolol 5mg, hydrochlorothiazide 50mg PO -Monitor BP 4) Asthma -Controlled 5) DVT Prophylaxis -Heparin 5000 sc Q12h <Minda Bautista - Last Filed: 03/27/17 08:53> Results - Vital Signs Recent Vital Signs: Last Vital Signs Temp 97.3 F L 03/27/17 08:28 Pulse 75 03/27/17 08:28 Resp 20 03/27/17 08:28 BP 142/80 03/27/17 08:28 Pulse Ox 100 03/27/17 08:28 - Labs Result Diagrams: 03/26/17 05:30 03/26/17 05:30 Assessment & Plan - Assessment and Plan (Free Text) Assessment: ATTENDING NOTE ADDENDUM PATIENT SEEN AND EXAMINED. CASE DISCUSSED WITH RESIDENT. PATIENT REPORTS NO COMPLAINTS AT PRESENT. AGREE WIT FINDINGS AND PLAN.
[2017-03-27] MEDS: Acyclovir 500 MG in Sodium Chloride 0.9% 100 ML IVPB SCH ×3 (06:00→20:27)
[2017-03-27] MEDS: Potassium Chloride 20 mEq ER Tab PO SCH (09:05)
--- NOTE | 2017-03-27 13:36 | CP.PCM.CON ---
History of Present Illness - History of Present Illness History of Present Illness: admitted due to acute presentation of choreiform movements, also met SIRS criteria in ED. Pt had JH, suspected that it was caused by rhabdomyolysis, caused by involuntary movements. . Spinal tap done in ED, and pt started on ceftiraxone and acyclovir. Neuro held parkinson's medications, gave D2 blockers , and started seroquel. Pt's symptoms gradually resolved, pt was also hydrated and CPK came down to value within normal limits. pt was discharged to TCU. PMH: asthma, HTN, past dx of parkinson's disease Hep C + Allergies: NKDA Medications: Seroquel 25 PO BID, Amlodipine 2.5 mg PO daily, Bisoprolol 5mg PO Daily, HCTZ 50mg PO daily, K-Dur 20meq tab PO daily Past Surgical Hx: none Social History: occasional EtOH, denies tobacco, drugs Review of Systems - Review of Systems All systems: reviewed and no additional remarkable complaints except - Constitutional Constitutional: As Per HPI - EENT Eyes: absent: As Per HPI, Blind Spots, Blurred Vision, Change in Vision, Decreased Night Vision, Diplopia, Discharge, Dry Eye, Exophthalmos, Floaters, Irritation, Itchy Eyes, Loss of Peripheral Vision, Pain, Photophobia, Requires Corrective Lenses, Sees Flashes, Spots in Vision, Tunnel Vision, Other Visual Disturbances, Loss of Vision, Other Ears: absent: As Per HPI, Decreased Hearing, Ear Discharge, Ear Pain, Tinnitus, Abnormal Hearing, Disequilibrium, Dizziness, Other Nose/Mouth/Throat: absent: As Per HPI, Epistaxis, Nasal Congestion, Nasal Discharge, Nasal Obstruction, Nasal Trauma, Nose Pain, Post Nasal Drip, Sinus Pain, Sinus Pressure, Bleeding Gums, Change in Voice, Dental Pain, Dry Mouth, Dysphagia, Halitosis, Hoarsness, Lip Swelling, Mouth Lesions, Mouth Pain, Odynophagia, Sore Throat, Throat Swelling, Tongue Swelling, Facial Pain, Neck Pain, Neck Mass, Other - Cardiovascular Cardiovascular: absent: As Per HPI, Acrocyanosis, Chest Pain, Chest Pain at Rest , Chest Pain with Activity, Claudication, Diaphoresis, Dyspnea, Dyspnea on Exertion, Edema, Irregular Heart Rhythm, Pain Radiating to Arm/Neck/Jaw, Leg Edema, Leg Ulcers, Lightheadedness, Orthopnea, Palpitations, Paroxysmal Nocturnal Dyspnea, Pedal Edema, Radiating Pain, Rapid Heart Rate, Slow Heart Rate, Syncope, Other - Respiratory Respiratory: absent: As Per HPI, Cough, Dyspnea, Hemoptysis, Dyspnea on Exertion , Wheezing, Snoring, Stridor, Pain on Inspiration, Chest Congestion, Excessive Mucous Production, Change in Mucous Color, Pain with Coughing, Other - Gastrointestinal Gastrointestinal: absent: As Per HPI, Abdominal Pain, Belching, Bloating, Change in Bowel Habits, Change in Stool Character, Coffee Ground Emesis, Constipation, Cramping, Diarrhea, Dyspepsia, Dysphagia, Early Satiety, Excessive Flatus, Fecal Incontinence, Heartburn, Hematemesis, Hematochezia, Loose Stools, Melena, Nausea, Odynophagia, Temesmus, Vomiting, Other - Genitourinary Genitourinary: absent: As Per HPI, Change in Urinary Stream, Difficulty Urinating, Dysuria, Flank Pain, Hematuria, Pyuria, Nocturia, Urinary Incontinence, Urinary Frequency, Urinary Hesitance, Urinary Urgency, Voiding Freq/Small Amts, Freq UTI, Hx Renal/Bladder Calculi, Hx /Renal Surgery, Bladder Distension, Other - Musculoskeletal Musculoskeletal: absent: As Per HPI, Abnormal Gait, Arthralgias, Atrophy, Back Pain, Deformity, Joint Swelling, Limited Range of Motion, Loss of Height, Muscle Cramps, Muscle Weakness, Myalgias, Neck Pain, Numbness, Radiating Pain into Limb, Stiffness, Tingling, Other - Integumentary Integumentary: absent: As Per HPI, Acne, Alopecia, Bleeding Lesions, Change in Hair, Change in Nails, Change in Pigmentation, Changing Lesions, Dry Skin, Erythema, Furuncle, Hirsutism, Lesions, New Lesions, Non-Healing Lesions, Photosensitivity, Pruritus, Rash, Skin Pain, Skin Ulcer, Sores, Striae, Swelling , Unusual Bruising, Wounds, Jaundice, Other - Neurological Neurological: As Per HPI - Psychiatric Psychiatric: absent: As Per HPI, Abnormal Sleep Pattern, Anhedonia, Anxiety, Auditory Hallucinations, Behavioral Changes, Change in Appetite, Change in Libido, Confusion, Depression, Difficulty Concentrating, Hallucinations, Homicidal Ideation, Hopelessness, Irritability, Memory Loss, Mood Swings, Panic Attacks, Paranoia, Suicidal Ideation, Visual Hallucinations, Tactile Hallucinations, Other - Endocrine Endocrine: absent: As Per HPI, Change in Body Appearance, Change in Libido, Cold Intolorance, Deepening of Voice, Excessive Sweating, Fatigue, Flushing, Heat Intolorance, Increase in Ring/Shoe/Hat Size, Palpitations, Polydipsia, Polyphagia, Polyuria, Other - Hematologic/Lymphatic Hematologic: absent: As Per HPI, Easy Bleeding, Easy Bruising, Lymphadenopathy, Other Past Patient History - Infectious Disease Hx of Infectious Diseases: None - Past Medical History & Family History Past Medical History?: Yes - Past Social History Smoking Status: Former Smoker Alcohol: Occasional Drugs: Denies - CARDIAC Hx Cardiac Disorders: Yes Hx Congestive Heart Failure: No Hx Hypertension: Yes - PULMONARY Hx Respiratory Disorders: Yes Hx Asthma: Yes Hx Chronic Obstructive Pulmonary Disease (COPD): No - NEUROLOGICAL Hx Neurological Disorder: Yes Hx Meningitis: Yes (possible) Hx Parkinson's Disease: Yes - HEENT Hx HEENT Problems: No - RENAL Hx Chronic Kidney Disease: No - ENDOCRINE/METABOLIC Hx Endocrine Disorders: No - HEMATOLOGICAL/ONCOLOGICAL Hx Blood Disorders: No - INTEGUMENTARY Hx Dermatological Problems: No - MUSCULOSKELETAL/RHEUMATOLOGICAL Hx Musculoskeletal Disorders: Yes Hx Falls: No Hx Rhabdomyolysis: Yes - GASTROINTESTINAL Hx Gastrointestinal Disorders: No - GENITOURINARY/GYNECOLOGICAL Hx Genitourinary Disorders: No - PSYCHIATRIC Hx Psychophysiologic Disorder: No Hx Substance Use: No - SURGICAL HISTORY Hx Surgeries: No - ANESTHESIA Hx Anesthesia: No Meds Allergies/Adverse Reactions: Allergies Allergy/AdvReac Type Severity Reaction Status Date / Time No Known Allergies Allergy Verified 11/26/15 12:27 - Medications Medications: Current Medications Amlodipine Besylate (Norvasc) 2.5 mg PO DAILY [facility] Last Admin: 03/27/17 09:05 Dose: 2.5 mg Aspirin (Ecotrin) 81 mg PO DAILY [facility] Last Admin: 03/27/17 09:05 Dose: 81 mg Bisoprolol Fumarate (Zebeta) 5 mg PO DAILY [facility] Last Admin: 03/27/17 09:04 Dose: 5 mg Heparin Sodium (Porcine) (Heparin) 5,000 units SC Q12 [facility] PRN Reason: Protocol Last Admin: 03/27/17 09:05 Dose: 5,000 units Hydrochlorothiazide (Hydrodiuril) 50 mg PO DAILY [facility] Last Admin: 03/27/17 09:04 Dose: 50 mg Acyclovir 500 mg/ Sodium (Chloride) 100 mls @ 100 mls/hr IVPB Q8@0500,1300, 2100 [facility] Last Admin: 03/27/17 12:42 Dose: 100 mls/hr Potassium Chloride (K-Dur 20 Meq Er Tab) 20 meq PO DAILY [facility] Last Admin: 03/27/17 09:05 Dose: 20 meq Quetiapine Fumarate (Seroquel) 25 mg PO BID [facility] Last Admin: 03/27/17 09:05 Dose: 25 mg Simethicone (Mylicon Chew Tab) 80 mg PO QID PRN PRN Reason: Flatulence Physical Exam - Constitutional Appears: Non-toxic, Chronically Ill - Head Exam Head Exam: NORMOCEPHALIC - Eye Exam Eye Exam: PERRL. absent: Scleral icterus - ENT Exam ENT Exam: Mucous Membranes Dry, Normal External Ear Exam - Neck Exam Neck exam: Negative for: Lymphadenopathy - Respiratory Exam Respiratory Exam: Decreased Breath Sounds, Rhonchi - Cardiovascular Exam Cardiovascular Exam: REGULAR RHYTHM, +S1, +S2 - GI/Abdominal Exam GI & Abdominal Exam: Diminished Bowel Sounds, Soft. absent: Tenderness - Rectal Exam Rectal Exam: Deferred - Exam Exam: NORMAL INSPECTION - Extremities Exam Extremities exam: Negative for: calf tenderness, pedal edema - Back Exam Back exam: absent: CVA tenderness (L), CVA tenderness (R) - Neurological Exam Neurological exam: Alert, CN II-XII Intact, Oriented x3, Reflexes Normal - Psychiatric Exam Psychiatric exam: Normal Mood - Skin Skin Exam: Dry Results - Vital Signs Recent Vital Signs: Last Vital Signs Temp 97.3 F L 03/27/17 08:28 Pulse 75 03/27/17 11:39 Resp 20 03/27/17 08:28 BP 142/80 03/27/17 11:39 Pulse Ox 98 03/27/17 11:39 - Labs Result Diagrams: 03/26/17 05:30 03/26/17 05:30 Assessment & Plan (1) Meningitis Status: Acute (2) Neuroleptic malignant syndrome Status: Acute Priority: High (3) Acute dystonia due to drugs Status: Resolved - Assessment and Plan (Free Text) Assessment: will renew iv rx and follow with you Plan: Hep C + will check viral load
[2017-03-28] MEDS: Acyclovir 500 MG in Sodium Chloride 0.9% 100 ML IVPB SCH ×2 (04:08→11:59)
[2017-03-28] MEDS: Potassium Chloride 20 mEq ER Tab PO SCH (08:24)
--- NOTE | 2017-03-28 12:45 | CP.PCM.PN ---
Subjective - Date & Time of Evaluation Date of Evaluation: 03/28/17 Time of Evaluation: 09:10 - Subjective Subjective: Pt was seen and evaluated at bedside; appears well, dressed in own clothes. No acute events overnight, no complaints today, denies recurrence of choreiform movements, back pain, GI upset. Denies chest pain, shortness of breath, palpitations, nausea, vomiting, issues toileting, leg/calf pain/swelling. Objective - Vital Signs/Intake and Output Vital Signs (last 24 hours): Temp Pulse Resp BP Pulse Ox 97.3 F L 85 20 146/87 99 03/28/17 08:06 03/28/17 08:23 03/28/17 08:06 03/28/17 08:23 03/28/17 08:06 - Medications Medications: Current Medications Amlodipine Besylate (Norvasc) 2.5 mg PO DAILY [facility] Last Admin: 03/28/17 08:23 Dose: 2.5 mg Aspirin (Ecotrin) 81 mg PO DAILY [facility] Last Admin: 03/28/17 08:23 Dose: 81 mg Bisoprolol Fumarate (Zebeta) 5 mg PO DAILY [facility] Last Admin: 03/28/17 08:23 Dose: 5 mg Heparin Sodium (Porcine) (Heparin) 5,000 units SC Q12 [facility] PRN Reason: Protocol Last Admin: 03/28/17 08:20 Dose: 5,000 units Hydrochlorothiazide (Hydrodiuril) 50 mg PO DAILY [facility] Last Admin: 03/28/17 08:23 Dose: 50 mg Potassium Chloride (K-Dur 20 Meq Er Tab) 20 meq PO DAILY [facility] Last Admin: 03/28/17 08:24 Dose: 20 meq Quetiapine Fumarate (Seroquel) 25 mg PO BID [facility] Last Admin: 03/28/17 08:23 Dose: 25 mg Simethicone (Mylicon Chew Tab) 80 mg PO QID PRN PRN Reason: Flatulence - Labs Labs: 03/26/17 05:30 03/26/17 05:30 PT 12.0 Seconds (9.8-13.1) 03/26/17 05:30 INR 1.1 (0.9-1.2) 03/26/17 05:30 APTT 32.3 Seconds (25.6-37.1) 03/26/17 05:30 - Constitutional Appears: Non-toxic, No Acute Distress - Head Exam Head Exam: ATRAUMATIC, NORMAL INSPECTION - Eye Exam Eye Exam: EOMI, Normal appearance, PERRL - ENT Exam ENT Exam: Mucous Membranes Moist - Neck Exam Neck Exam: Normal Inspection - Respiratory Exam Respiratory Exam: Clear to Ausculation Bilateral, NORMAL BREATHING PATTERN - Cardiovascular Exam Cardiovascular Exam: REGULAR RHYTHM, +S1, +S2 - GI/Abdominal Exam GI & Abdominal Exam: Soft, Normal Bowel Sounds. absent: Distended, Tenderness - Extremities Exam Extremities Exam: Normal Inspection. absent: Calf Tenderness, Joint Swelling, Pedal Edema, Tenderness Additional comments: chronic discoloration noted on LE as before - Back Exam Back Exam: NORMAL INSPECTION - Neurological Exam Neurological Exam: Alert, Awake, CN II-XII Intact, Oriented x3 - Psychiatric Exam Psychiatric exam: Normal Affect, Normal Mood - Skin Skin Exam: Dry, Intact, Normal Color, Warm Assessment and Plan - Assessment and Plan (Free Text) Assessment: 82 yo M with PMH HTN, asthma, acute dystonia with choreiform movements, past dx parkinson's disease, possible viral meningitis in TCU for physical therapy/ rehab after 5 day stay due to since mostly resolved choreiform movements Plan: 1) Acute Dystonia -Continue physical therapy; mostly resolved -As per neuro, Seroquel 25mg PO BID to be tapered off by outpt f/u. Started on ; today is Day 6 -MRIs of brain and brainstem: Global atrophy most prominent in frontoparietal region bilaterally. Also the cerebellar atrophy noted. Mild periventricular and deep chronic microvascular white matter ischemic change. -EEG was done; to be reviewed by neuro, awaiting results -Anticoag with aspirin 81mg daily -f/u EEG 2) Viral meningitis -LP on admission- CSF: bloody, WBC: 101, CSF RBC: 25077, total protein >600, glucose: 73 -CSF Gram stain: no organisms seen -CSF culture: no growth at this time -No fevers, no elevated WBC at this time -ID consult appreciated -West Nile negative, HSV PCR negative - After discussing with ID today, d/c acyclovir (started on 03/20 on admission) 3) HTN -Continue with Amlodipine 2.5 PO daily, Bisoprolol 5mg, hydrochlorothiazide 50mg PO -Monitor BP 4) Asthma -Controlled 5) DVT Prophylaxis -Heparin 5000 sc Q12h
[2017-03-29 07:25] LABS: HEMOGLOBIN 14.3 g/dL (12.0-18.0); MEAN CELL VOLUME 95.2 fl (80.0-94.0); MEAN CORPUSCULAR HEMOGLOBIN 32.3 pg (27.0-31.0); MEAN CORPUSCULAR HGB CONC 33.9 g/dL (33.0-37.0); RBC 4.44 Mil/uL (4.40-5.90); RED CELL DISTRIBUTION WIDTH 13.7 % (11.5-14.5); WHITE BLOOD COUNT 9.3 K/uL (4.8-10.8)
[2017-03-29 07:30] LABS: BLOOD UREA NITROGEN 31 mg/dl (9-20); CALCIUM 9.2 mg/dL (8.4-10.2); GFR AFRICAN-AMERICAN > 60; GFR NON-AFRICAN AMERICAN > 60
[2017-03-29] MEDS: Potassium Chloride 20 mEq ER Tab PO SCH (09:04)
[2017-03-30] MEDS: Potassium Chloride 20 mEq ER Tab PO SCH (08:55)
[2017-03-30 11:51] LABS: ALBUMIN (PEP) 3.6 g/dL (3.8-4.8); ALPHA-1-GLOBULIN (PEP) 0.3 g/dL (0.2-0.3)
[2017-03-30 14:42] LABS: FREE KAPPA SERUM 36.6 mg/L (3.3-19.4)
[2017-03-31] MEDS: Potassium Chloride 20 mEq ER Tab PO SCH (08:43)
--- NOTE | 2017-03-31 15:10 | CP.PCM.PN ---
Subjective - Date & Time of Evaluation Date of Evaluation: 03/31/17 Time of Evaluation: 09:45 - Subjective Subjective: Pt was seen and evaluated at bedside; appears well, dressed in own clothes, no choreiform movements observed. No acute events overnight, has been in good spirits as per nursing staff in TCU. Spoke with physical therapist who stated pt will be ready for discharge on Sat . Objective - Vital Signs/Intake and Output Vital Signs (last 24 hours): Temp Pulse Resp BP Pulse Ox 97.2 F L 67 20 140/86 98 03/31/17 08:48 03/31/17 08:48 03/31/17 08:48 03/31/17 08:48 03/31/17 08:48 - Medications Medications: Current Medications Amlodipine Besylate (Norvasc) 2.5 mg PO DAILY [facility] Last Admin: 03/31/17 08:42 Dose: 2.5 mg Aspirin (Ecotrin) 81 mg PO DAILY [facility] Last Admin: 03/31/17 08:43 Dose: 81 mg Bisoprolol Fumarate (Zebeta) 5 mg PO DAILY [facility] Last Admin: 03/31/17 08:42 Dose: 5 mg Heparin Sodium (Porcine) (Heparin) 5,000 units SC Q12 [facility] PRN Reason: Protocol Last Admin: 03/31/17 08:43 Dose: 5,000 units Hydrochlorothiazide (Hydrodiuril) 50 mg PO DAILY [facility] Last Admin: 03/31/17 08:43 Dose: 50 mg Potassium Chloride (K-Dur 20 Meq Er Tab) 20 meq PO DAILY [facility] Last Admin: 03/31/17 08:43 Dose: 20 meq Quetiapine Fumarate (Seroquel) 25 mg PO BID [facility] Last Admin: 03/31/17 08:42 Dose: 25 mg Simethicone (Mylicon Chew Tab) 80 mg PO QID PRN PRN Reason: Flatulence - Labs Labs: 03/29/17 06:45 03/29/17 06:45 PT 12.0 Seconds (9.8-13.1) 03/26/17 05:30 INR 1.1 (0.9-1.2) 03/26/17 05:30 APTT 32.3 Seconds (25.6-37.1) 03/26/17 05:30 - Constitutional Appears: Non-toxic, No Acute Distress - Head Exam Head Exam: ATRAUMATIC, NORMAL INSPECTION - Eye Exam Eye Exam: EOMI - ENT Exam ENT Exam: Mucous Membranes Moist - Respiratory Exam Respiratory Exam: NORMAL BREATHING PATTERN - Cardiovascular Exam Cardiovascular Exam: +S1, +S2 - Neurological Exam Neurological Exam: Alert, Awake, Oriented x3 Assessment and Plan - Assessment and Plan (Free Text) Assessment: 82 yo M with PMH HTN, asthma, acute dystonia with choreiform movements, past dx parkinson's disease, possible viral meningitis, no longer on antivirals, in TCU for physical therapy/rehab after 5 day stay due to since mostly resolved choreiform movements Plan: 1) Acute Dystonia -Continue physical therapy; mostly resolved -As per neuro, Seroquel 25mg PO BID to be tapered off by outpt f/u. Started on ; today is Day 9 -Anticoag with aspirin 81mg daily -EEG was done; to be reviewed by neuro -f/u neuro outpt, discussed with pt's daughter -as per physical therapy and social worker health services, plan to d/c pt on sat 04/02 2) Viral meningitis -LP on admission showed possibly viral etiology, as per ID recs, pt was started on acyclovir, which was d/c 03/28 -CSF Gram stain: no organisms seen -CSF culture: no growth at this time -No fevers, no elevated WBC at this time -ID consult appreciated; west Nile negative, HSV PCR negative 3) HTN -Continue with Amlodipine 2.5 PO daily, Bisoprolol 5mg, hydrochlorothiazide 50mg PO -Monitor BP 4) Asthma -Controlled 5) DVT Prophylaxis -Heparin 5000 sc Q12h
[2017-04-01] MEDS: Potassium Chloride 20 mEq ER Tab PO SCH (08:43)
[2017-04-02] MEDS: Potassium Chloride 20 mEq ER Tab PO SCH (09:44)
[2017-04-03 08:32] VITALS: RESP 20
[2017-04-03] MEDS: Potassium Chloride 20 mEq ER Tab PO SCH (09:58)
[2017-04-03 16:19] VITALS: BP 146/93; PULSE 78; TEMP 97.3; O2SAT 97
--- NOTE | 2017-04-03 16:52 | CP.PCM.DIS ---
Provider - Provider Date of Admission: 03/25/17 21:35 Attending physician: Monie Acevedo MD Primary care physician: [facility]- Dr. Cramer Consults: Infectious disease Time Spent in preparation of Discharge (in minutes): 30 Diagnosis - Discharge Diagnosis (1) Acute dystonia due to drugs Status: Resolved Hospital Course - Lab Results Lab Results: Most Recent Lab Values WBC 9.3 K/uL (4.8-10.8) 03/29/17 06:45 RBC 4.44 Mil/uL (4.40-5.90) 03/29/17 06:45 Hgb 14.3 g/dL (12.0-18.0) 03/29/17 06:45 Hct 42.2 % (35.0-51.0) 03/29/17 06:45 MCV 95.2 fl (80.0-94.0) H 03/29/17 06:45 MCH 32.3 pg (27.0-31.0) H 03/29/17 06:45 MCHC 33.9 g/dL (33.0-37.0) 03/29/17 06:45 RDW 13.7 % (11.5-14.5) 03/29/17 06:45 Plt Count 180 K/uL (130-400) 03/29/17 06:45 PT 12.0 Seconds (9.8-13.1) 03/26/17 05:30 INR 1.1 (0.9-1.2) 03/26/17 05:30 APTT 32.3 Seconds (25.6-37.1) 03/26/17 05:30 Sodium 136 mmol/l (132-148) 03/29/17 06:45 Potassium 3.9 MMOL/L (3.6-5.0) 03/29/17 06:45 Chloride 99 mmol/L (98-107) 03/29/17 06:45 Carbon Dioxide 30 mmol/L (22-30) 03/29/17 06:45 Anion Gap 11 (10-20) 03/29/17 06:45 BUN 31 mg/dl (9-20) H 03/29/17 06:45 Creatinine 1.1 mg/dL (0.8-1.5) 03/29/17 06:45 Est GFR ( Amer) > 60 03/29/17 06:45 Est GFR (Non-Af Amer) > 60 03/29/17 06:45 Random Glucose 108 mg/dL (75-110) 03/29/17 06:45 Calcium 9.2 mg/dL (8.4-10.2) 03/29/17 06:45 Total Bilirubin 0.5 mg/dl (0.2-1.3) 03/26/17 05:30 AST 103 U/L (17-59) H D 03/26/17 05:30 ALT 105 U/L (21-72) H D 03/26/17 05:30 Alkaline Phosphatase 73 U/L (38-126) 03/26/17 05:30 Total Protein 7.1 G/DL (6.3-8.2) 03/26/17 05:30 Total Protein (PEP) 6.9 g/dL (6.1-8.1) 03/29/17 06:45 Albumin 3.8 g/dL (3.5-5.0) 03/26/17 05:30 Albumin (PEP) 3.6 g/dL (3.8-4.8) L 03/29/17 06:45 Globulin 3.2 gm/dL (2.2-3.9) 03/26/17 05:30 Albumin/Globulin Ratio 1.2 (1.0-2.1) 03/26/17 05:30 Mhrat-5-Bpbukkumh 0.3 g/dL (0.2-0.3) 03/29/17 06:45 Mwjkp-9-Tvshmqayl 0.6 g/dL (0.5-0.9) 03/29/17 06:45 Jmgo-8-Ofdimwqo 0.5 g/dL (0.4-0.6) 03/29/17 06:45 Zpoo-1-Teucuwkc 0.4 g/dL (0.2-0.5) 03/29/17 06:45 Gamma Globulins 1.4 g/dL (0.8-1.7) 03/29/17 06:45 Abnorm Protein Band 1 TEST NOT PERFORMED 03/29/17 06:45 Abnorm Protein Band 2 TEST NOT PERFORMED 03/29/17 06:45 Abnorm Protein Band 3 TEST NOT PERFORMED 03/29/17 06:45 RENÉ & SPEP Interp See note 03/29/17 06:45 Free Alcolu Light Chains 36.6 mg/L (3.3-19.4) H 03/29/17 06:45 Free Lambda Light Chain 38.7 mg/L (5.7-26.3) H 03/29/17 06:45 Free [place]/Lambda Ratio 0.95 (0.26-1.65) 03/29/17 06:45 Hepatitis C RNA <15 not detected IU/mL (<15) 03/27/17 16:30 HCV RNA Quant (PCR) <1.18 not detected Log IU/mL (<1.18) 03/27/17 16:30 - Hospital Course Hospital Course: Pt is 82 yo M with past dx Parkinson's disease, HTN 20 yrs ago who was admitted to TCU following 5 day hospital stay. Pt was admitted due to acute presentation of choreiform movements, also met SIRS criteria in ED and was suspected to have viral meningitis and started on acyclovir as per ID. Neuro held parkinson's medications, gave D2 blockers, and started seroquel. Pt's symptoms gradually resolved, and physical therapy eval patient. Pt was d/c to TCU where acyclovir was continued for several days, until ID recommendations said to discontinue it. Pt partook in physical therapy in TCU and tolerated it well, was able to ambulate, choreiform movements did not recur while pt was in TCU. Pt was d/c, he and his daughter were given instructions on how to f/u with neurologist Dr. Pizarro in his private clinic (as per neuro, seroquel to be tapered on outpt f/u) , and pt has appt at [facility] next week as well. - Date & Time of H&P Date of H&P: 03/26/17 Time of H&P: 13:22 Discharge Exam - Head Exam Head Exam: ATRAUMATIC, NORMAL INSPECTION - Eye Exam Eye Exam: EOMI, Normal appearance - ENT Exam ENT Exam: Mucous Membranes Moist - Respiratory Exam Respiratory Exam: Clear to PA & Lateral, NORMAL BREATHING PATTERN, UNREMARKABLE - Cardiovascular Exam Cardiovascular Exam: REGULAR RHYTHM, +S1, +S2 - GI/Abdominal Exam GI & Abdominal Exam: Normal Bowel Sounds, Soft, Unremarkable - Extremities Exam Extremities exam: normal capillary refill, pedal pulses present - Neurological Exam Neurological exam: Alert, Oriented x3 - Psychiatric Exam Psychiatric exam: Normal Affect, Normal Mood - Skin Skin Exam: Dry, Intact, Normal Color, Warm Discharge Plan - Discharge Medications Prescriptions: QUEtiapine [Seroquel] 25 mg PO BID #30 tab - Follow Up Plan Condition: GOOD Disposition: HOME/ ROUTINE Instructions: Quetiapine (By mouth), Fall Prevention (DC) Additional Instructions: Please follow up with Neurology to taper your seroquel dose Please note [facility] will contact you on Tuesday04/04/17 for follow up appointment with your PCP Resume all home medications as prescribed, except those previously prescribed for your diagnosis of parkinson's which has since been discontinue while you were hospitalized Referrals: Colt Pizarro MD [Medical Doctor] -
== END 2017-04-03 16:20 | DRG 75 ==
LOC: H.TCU 21:35
PROVIDERS: ADMIT Family Medicine Geriatric Medicine; ATTEND Family Medicine Geriatric Medicine
PROC: 3E03329 Introduction of Other Anti-infective into Peripheral Vein, Percutaneous Approach (ICD-10-PCS; principal; 2017-03-26)
PROC: F08Z4FZ Home Management Treatment using Assistive, Adaptive, Supportive or Protective Equipment (ICD-10-PCS; 2017-03-26)
PROC: F07M6FZ Therapeutic Exercise Treatment of Musculoskeletal System - Whole Body using Assistive, Adaptive, Supportive or Protective Equipment (ICD-10-PCS; 2017-03-26)
DX: A87.9 Viral meningitis, unspecified (principal); N17.9 Acute kidney failure, unspecified; G20 Parkinson's disease; G24.02 Drug induced acute dystonia; I10 Essential (primary) hypertension; J45.909 Unspecified asthma, uncomplicated; Z86.61 Personal history of infections of the central nervous system; Z87.891 Personal history of nicotine dependence; Z86.19 Personal history of other infectious and parasitic diseases

== ENCOUNTER 2017-05-04 18:40 | Emergency (ER) | payer MEDICARE ==
[2017-05-04 18:40] VITALS: BMI 23.3
[2017-05-04 20:25] LABS: BASO # 0.1 K/uL (0.0-0.2); BASO % 0.6 % (0.0-2.0); EOS # 1.3 K/uL (0.0-0.7); EOS % 13.9 % (0.0-4.0); HEMATOCRIT 40.6 % (35.0-51.0); LYMPH # 1.4 K/uL (1.0-4.3); LYMPH % 14.8 % (20.0-40.0); MEAN CELL VOLUME 95.4 fl (80.0-94.0); MEAN CORPUSCULAR HEMOGLOBIN 32.2 pg (27.0-31.0); MEAN CORPUSCULAR HGB CONC 33.7 g/dL (33.0-37.0); MEAN PLATELET VOLUME 8.8 fl (7.2-11.7); MONO # 0.7 K/uL (0.0-0.8); MONO % 7.6 % (0.0-10.0); NEUT # 6.1 K/uL (1.8-7.0); NEUT % 63.1 % (50.0-75.0); RED CELL DISTRIBUTION WIDTH 13.5 % (11.5-14.5); WHITE BLOOD COUNT 9.7 K/uL (4.8-10.8)
[2017-05-04 20:46] LABS: ALB/GLOB RATIO 1.3 (1.0-2.1); ALKALINE PHOSPHATASE 82 U/L (38-126); ALT/SGPT 28 U/L (21-72); AST/SGOT 32 U/L (17-59); BILIRUBIN,TOTAL 0.8 mg/dl (0.2-1.3); BLOOD UREA NITROGEN 17 mg/dl (9-20); CALCIUM 9.3 mg/dL (8.4-10.2); CARBON DIOXIDE 26 mmol/L (22-30); CHLORIDE 106 mmol/L (98-107); GFR AFRICAN-AMERICAN > 60; GLUCOSE,RANDOM 93 mg/dL (75-110); POTASSIUM 4.1 MMOL/L (3.6-5.0); SODIUM 141 mmol/l (132-148); TOTAL PROTEIN 7.7 G/DL (6.3-8.2)
--- NOTE | 2017-05-04 21:10 | CT ---
EXAM: CT Neck Without Intravenous Contrast CLINICAL HISTORY: 82 years old, male; Signs and symptoms; Dysphagia / difficulty swallowing; Additional info: Foreign body sensation TECHNIQUE: Axial computed tomography images of the neck without intravenous contrast. All CT scans at this facility use one or more dose reduction techniques, viz.: automated exposure control; ma/kV adjustment per patient size (including targeted exams where dose is matched to indication; i.e. head); or iterative reconstruction technique. Coronal and sagittal reformatted images were created and reviewed. COMPARISON: No relevant prior studies available. FINDINGS: Limitations: Lack of intravenous contrast. Nasopharynx: Unremarkable. Oropharynx: No palatine tonsillar enlargement. Several tonsilloliths within palatine tonsils. Hypopharynx: Unremarkable. Larynx: Unremarkable. Normal epiglottis. Trachea: Unremarkable. Retropharyngeal space: Unremarkable. Submandibular/parotid glands: Glands are normal in size. Thyroid: Subcentimeter cyst or nodule within LEFT lobe. Bones/joints: Degenerative changes of cervical spine. No acute fracture. Soft tissues: No radiopaque foreign bodies. Vasculature: Minimal atherosclerotic disease. Lymph nodes: No pathologically enlarged lymph nodes. Sinuses: Moderate mucosal thickening of ethmoid sinuses. Mild mucosal thickening of maxillary, sphenoid sinuses. Focal mucosal thickening and/or fluid of RIGHT maxillary sinus. Dental: Dental caries. Lung apices: Early emphysematous changes. Minimal apical scarring. IMPRESSION: 1. No radiopaque foreign bodies. 2. If symptoms persist, consider direct visualization. 3. Incidental/non-acute findings are described above.
--- NOTE | 2017-05-04 22:08 | ED PDOC ---
HPI: CCC, URI, Sore Throat Time Seen by Provider: 05/04/17 19:25 Chief Complaint (Nursing): ENT Problem Chief Complaint (Provider): foreign body History Per: Patient History/Exam Limitations: no limitations Onset/Duration Of Symptoms: Days (x2-3) Current Symptoms Are (Timing): Still Present Location Of Pain: Headache Additional Complaint(s): Lyle Alexis is an 82 year old male with a baseline tremor, who presents to the emergency department with a complaint of possible foreign body in throat ongoing for 2-3 days. Denied any fever, vomiting, diarrhea, cough or chest pain. PMD: none provided Past Medical History Reviewed: Historical Data, Nursing Documentation, Vital Signs Vital Signs: Last Vital Signs Temp 98.4 F 05/04/17 23:08 Pulse 70 05/04/17 23:08 Resp 16 05/04/17 23:08 BP 176/101 H 05/04/17 23:08 Pulse Ox 97 05/04/17 23:08 - Medical History PMH: Asthma, HTN, Parkinson's Disease Denies: CHF, COPD, Chronic Kidney Disease - Family History Family History: States: Unknown Family Hx - Social History Current smoker - smoking cessation education provided: No Ex-Smoker (has not smoked in the last 12 months): Yes Alcohol: None Drugs: Denies - Home Medications Home Medications: Ambulatory Orders Medication Instructions Recorded Albuterol HFA [Ventolin HFA 90 2 puff IH [id number] PRN #60 puff 03/25/17 mcg/actuation (8 g)] Aspirin [Ecotrin] 81 mg PO DAILY 03/25/17 Bisoprolol [Zebeta] 5 mg PO DAILY tab 03/25/17 Bisoprolol [Zebeta] 5 mg PO DAILY #30 03/25/17 Potassium Chloride [K-Dur 20 mEq 20 meq PO DAILY #30 03/25/17 ER Tab] amLODIPine [Norvasc] 2.5 mg PO DAILY #30 tab 03/25/17 hydroCHLOROthiazide [Hydrodiuril] 50 mg PO DAILY #30 tab 03/25/17 QUEtiapine [Seroquel] 25 mg PO BID #30 tab 04/03/17 - Allergies Allergies/Adverse Reactions: Allergies Allergy/AdvReac Type Severity Reaction Status Date / Time No Known Allergies Allergy Verified 11/26/15 12:27 Review of Systems ROS Statement: Except As Marked, All Systems Reviewed And Found Negative Constitutional: Negative for: Fever, Chills ENT: Positive for: Throat Pain (possible foreign body) Gastrointestinal: Negative for: Vomiting, Diarrhea Physical Exam - Reviewed Nursing Documentation Reviewed: Yes Vital Signs Reviewed: Yes - Physical Exam Appears: Positive for: Well, Non-toxic, No Acute Distress Head Exam: Positive for: ATRAUMATIC, NORMAL INSPECTION, NORMOCEPHALIC ENT: Positive for: Normal ENT Inspection, Pharynx Is (within normal limits). Negative for: Pharyngeal Erythema, Tonsillar Swelling Neck: Positive for: Normal, Painless ROM, Supple Cardiovascular/Chest: Positive for: Regular Rate, Rhythm. Negative for: Chest Non Tender Respiratory: Positive for: Normal Breath Sounds. Negative for: Crackles, Rales , Rhonchi, Wheezing, Respiratory Distress Gastrointestinal/Abdominal: Positive for: Normal Exam, Bowel Sounds, Soft. 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 Nasopharynx: Unremarkable. Oropharynx: No palatine tonsillar enlargement. Several tonsilloliths within palatine tonsils. Hypopharynx: Unremarkable. Larynx: Unremarkable. Normal epiglottis. Trachea: Unremarkable. Retropharyngeal space: Unremarkable. Submandibular/parotid glands: Glands are normal in size. Thyroid: Subcentimeter cyst or nodule within LEFT lobe. Bones/joints: Degenerative changes of cervical spine. No acute fracture. Soft tissues: No radiopaque foreign bodies. Vasculature: Minimal atherosclerotic disease. Lymph nodes: No pathologically enlarged lymph nodes. Sinuses: Moderate mucosal thickening of ethmoid sinuses. Mild mucosal thickening of maxillary, sphenoid sinuses. Focal mucosal thickening and/or fluid of RIGHT maxillary sinus. Dental: Dental caries. Lung apices: Early emphysematous changes. Minimal apical scarring. IMPRESSION: 1. No radiopaque foreign bodies. 2. If symptoms persist, consider direct visualization. 3. Incidental/non-acute findings are described above. pt instructed to follow up wtih ENT for further evaluation referral given Scribe Attestation: Documented by Corrine Adamson, acting as a scribe for Coral Valladares MD. Provider Scribe Attestation: All medical record entries made by the Scribe were at my direction and personally dictated by me. I have reviewed the chart and agree that the record accurately reflects my personal performance of the history, physical exam, medical decision making, and the department course for this patient. I have also personally directed, reviewed, and agree with the discharge instructions and disposition. Disposition - Clinical Impression Clinical Impression: Sensation of foreign body - Patient ED Disposition Is Patient to be Admitted: No Counseled Patient/Family Regarding: Studies Performed, Diagnosis, Need For Followup - Disposition Referrals: [facility] [Outside] Brad Olson MD [Staff Provider] - Disposition: Routine/Home Disposition Time: 22:00 Condition: STABLE Additional Instructions: follow up with your primary doctor in 1-2 days return to the ED with any worsening or concerning symptoms Forms: [employer] ([employer])
[2017-05-04 23:09] VITALS: BP 176/101; PULSE 70; RESP 16; TEMP 98.4
[2017-05-04 23:18] VITALS: O2SAT 100
== END 2017-05-04 23:10 | disposition home or self-care (01) ==
LOC: H.ER 18:40
DX: R09.89 Other specified symptoms and signs involving the circulatory and respiratory systems (principal); G20 Parkinson's disease; I10 Essential (primary) hypertension; J45.909 Unspecified asthma, uncomplicated; Z79.82 Long term (current) use of aspirin

== ENCOUNTER 2017-05-14 19:13 | Inpatient (IN) | payer MEDICARE ==
[2017-05-14] MEDS ORDERED: Albuterol-Ipratrop 3 mg / 0.5 (3 ml) UD INH STA ×2 (19:35→19:36)
[2017-05-14] MEDS ORDERED: Albuterol-Ipratrop 3 mg / 0.5 (3 ml) UD IH STA (19:35)
[2017-05-14] MEDS ORDERED: Sodium Chloride 0.9% 1,000 ML IV SCH (19:45)
--- NOTE | 2017-05-14 19:48 | ED PDOC ---
HPI: SOB/CHF/COPD Time Seen by Provider: 05/14/17 19:29 Chief Complaint (Nursing): Shortness Of Breath Chief Complaint (Provider): Dyspnea History Per: Patient History/Exam Limitations: no limitations Onset/Duration Of Symptoms: Days (3) Current Symptoms Are (Timing): Still Present Additional Complaint(s): Pt. with dyspnea for 3 days. Chest pain left with it. Cough, congestion, runny nose. No weakness, headache, dizziness, abd pain. No numbness, tingles. No leg pain. Did not take any meds for. Denies any asthma hx, but present per notes. Past Medical History Reviewed: Nursing Documentation, Vital Signs Vital Signs: Last Vital Signs Temp 97.8 F 05/14/17 19:25 Pulse 86 05/14/17 19:25 Resp 20 05/14/17 19:25 BP 124/102 H 05/14/17 19:25 Pulse Ox 99 05/14/17 19:25 - Medical History PMH: Asthma, HTN, Parkinson's Disease Denies: CHF, COPD, Chronic Kidney Disease - Family History Family History: States: Unknown Family Hx - Living Arrangements Living Arrangements: With Family - Social History Current smoker - smoking cessation education provided: No Alcohol: None Drugs: Denies - Home Medications Home Medications: Ambulatory Orders Medication Instructions Recorded Albuterol HFA [Ventolin HFA 90 2 puff IH [id number] PRN #60 puff 03/25/17 mcg/actuation (8 g)] Aspirin [Ecotrin] 81 mg PO DAILY 03/25/17 Bisoprolol [Zebeta] 5 mg PO DAILY tab 03/25/17 Bisoprolol [Zebeta] 5 mg PO DAILY #30 03/25/17 Potassium Chloride [K-Dur 20 mEq 20 meq PO DAILY #30 03/25/17 ER Tab] amLODIPine [Norvasc] 2.5 mg PO DAILY #30 tab 03/25/17 hydroCHLOROthiazide [Hydrodiuril] 50 mg PO DAILY #30 tab 03/25/17 QUEtiapine [Seroquel] 25 mg PO BID #30 tab 04/03/17 - Allergies Allergies/Adverse Reactions: Allergies Allergy/AdvReac Type Severity Reaction Status Date / Time No Known Allergies Allergy Verified 11/26/15 12:27 Review of Systems ROS Statement: Except As Marked, All Systems Reviewed And Found Negative ENT: Positive for: Nose Congestion Cardiovascular: Positive for: Chest Pain Respiratory: Positive for: Cough, Shortness of Breath, Wheezing Physical Exam - Reviewed Nursing Documentation Reviewed: Yes Vital Signs Reviewed: Yes - Physical Exam Appears: Positive for: Non-toxic, No Acute Distress Head Exam: Positive for: ATRAUMATIC, NORMAL INSPECTION, NORMOCEPHALIC Skin: Positive for: Normal Color, Warm, DRY Eye Exam: Positive for: EOMI, Normal appearance, PERRL ENT: Positive for: Normal ENT Inspection Neck: Positive for: Normal, Painless ROM Cardiovascular/Chest: Positive for: Regular Rate, Rhythm Respiratory: Positive for: Decreased Breath Sounds, Wheezing (b/l). Negative for: Accessory Muscle Use Gastrointestinal/Abdominal: Positive for: Normal Exam, Bowel Sounds, Soft. Negative for: Tenderness Back: Positive for: Normal Inspection. Negative for: L CVA Tenderness, R CVA Tenderness Extremity: Positive for: Normal ROM. Negative for: Tenderness, Pedal Edema, Calf Tenderness Neurologic/Psych: Positive for: Alert, Oriented - Laboratory Results Interpretation Of Abn Labs: no acute - ECG ECG: Positive for: Interpreted By Me, Viewed By Me ECG Rhythm: Positive for: Normal QRS, Normal ST Segment, Sinus Rhythm O2 Sat by Pulse Oximetry: 99 Pulse Ox Interpretation: Normal - Radiology X-Ray: Interpreted by Me, Viewed By Me X-Ray Interpretation: No Acute Disease - Progress ED Course And Treament: 2051: Stable. AAOx3. Pain free. Will admit for further tx. ASA for chest pain. Spoke with [facility] resident who will admit. Disposition - Clinical Impression Clinical Impression: Asthma, Chest pain - Patient ED Disposition Is Patient to be Admitted: No Counseled Patient/Family Regarding: Studies Performed, Diagnosis - Disposition Disposition Time: 20:00 Condition: FAIR - Pt Status Changed To: Hospital Disposition Of: Inpatient - Admit Certification Admit to Inpatient:: After my assessment, the patient will require hospitalization for at least two midnights. This is because of the severity of symptoms shown, intensity of services needed, and/or the medical risk in this patient being treated as an outpatient. - POA Present On Arrival: None
[2017-05-14 19:55] LABS: ABG ALLEN TEST YES; ARTERIAL BLOOD GAS HCO3 25.5 mmol/L (21-28); ARTERIAL BLOOD GAS PH 7.39 (7.35-7.45); ARTERIAL BLOOD GAS PO2 75 mm/Hg (80-100)
[2017-05-14 20:07] LABS: BASO # 0.1 K/uL (0.0-0.2); BASO % 0.8 % (0.0-2.0); EOS # 1.5 K/uL (0.0-0.7); EOS % 14.3 % (0.0-4.0); HEMATOCRIT 42.3 % (35.0-51.0); LYMPH # 1.8 K/uL (1.0-4.3); LYMPH % 17.5 % (20.0-40.0); MEAN CELL VOLUME 94.9 fl (80.0-94.0); MEAN CORPUSCULAR HEMOGLOBIN 32.2 pg (27.0-31.0); MEAN PLATELET VOLUME 8.8 fl (7.2-11.7); MONO # 0.7 K/uL (0.0-0.8); MONO % 6.7 % (0.0-10.0); NEUT # 6.3 K/uL (1.8-7.0); NEUT % 60.7 % (50.0-75.0); NRBC % 0.1 % (0.0-0.0); RED CELL DISTRIBUTION WIDTH 13.3 % (11.5-14.5); WHITE BLOOD COUNT 10.4 K/uL (4.8-10.8)
[2017-05-14 20:20] LABS: ALB/GLOB RATIO 1.3 (1.0-2.1); ALKALINE PHOSPHATASE 85 U/L (38-126); ALT/SGPT 28 U/L (21-72); AST/SGOT 28 U/L (17-59); BILIRUBIN,TOTAL 0.6 mg/dl (0.2-1.3); BLOOD UREA NITROGEN 18 mg/dl (9-20); CALCIUM 9.5 mg/dL (8.4-10.2); CARBON DIOXIDE 25 mmol/L (22-30); CHLORIDE 100 mmol/L (98-107); GFR AFRICAN-AMERICAN > 60; GLUCOSE,RANDOM 104 mg/dL (75-110); MAGNESIUM 1.8 MG/DL (1.6-2.3); PHOSPHOROUS 4.4 mg/dl (2.5-4.5); POTASSIUM 4.5 MMOL/L (3.6-5.0); SODIUM 139 mmol/l (132-148); TOTAL PROTEIN 8.5 G/DL (6.3-8.2)
[2017-05-14 20:27] LABS: PARTIAL THROMBOPLASTIN TIME 26.6 Seconds (25.6-37.1)
[2017-05-14] MEDS ORDERED: Albuterol-Ipratrop 3 mg / 0.5 (3 ml) UD INH PRN (21:33)
--- NOTE | 2017-05-14 22:07 | CP.PCM.HP ---
History of Present Illness - History of Present Illness History of Present Illness: 82 year old male presents with complaint of shortness of breath and cough for past few days, he felt tightening of his chest today while he was watching television and this prompted visit to ED. He has nonproductive cough. He was using his 's 'machine' at home but it did not help his symptoms. Patient denies any history of asthma or cardiac disease. He has hypertension and history of 'trembling'. He has a pet dog, that he has had for many years. No carpets in the home, with good air ventilation. His daughter smokes, but not in the house. He endorses he was recently here in the hospital for a different reason. Patient denies fevers, chills, chest pain, nausea, vomiting, diarrhea, pedal edema. Spoke with the patients daughter: [place]: [phone] Additional history obtained from daughter: Pt has been dyspneic for past few months, he has been given inhaler and steroids but symptoms recur. He has not been diagnosed with asthma but she worries about his constant dyspnea. Present on Admission - Present on Admission Any Indicators Present on Admission: No Past Patient History - Infectious Disease Hx of Infectious Diseases: None - Past Medical History & Family History Past Medical History?: Yes - Past Social History Alcohol: None Drugs: Denies - CARDIAC Hx Congestive Heart Failure: No Hx Hypertension: Yes - PULMONARY Hx Asthma: Yes Hx Chronic Obstructive Pulmonary Disease (COPD): No - NEUROLOGICAL Hx Parkinson's Disease: Yes - HEENT Hx HEENT Problems: No - RENAL Hx Chronic Kidney Disease: No - ENDOCRINE/METABOLIC Hx Endocrine Disorders: No - HEMATOLOGICAL/ONCOLOGICAL Hx Blood Disorders: No - INTEGUMENTARY Hx Dermatological Problems: No - MUSCULOSKELETAL/RHEUMATOLOGICAL Hx Musculoskeletal Disorders: Yes Hx Falls: No Hx Rhabdomyolysis: Yes - GASTROINTESTINAL Hx Gastrointestinal Disorders: No - GENITOURINARY/GYNECOLOGICAL Hx Genitourinary Disorders: No - PSYCHIATRIC Hx Psychophysiologic Disorder: No Hx Substance Use: No - SURGICAL HISTORY Hx Surgeries: No - ANESTHESIA Hx Anesthesia: No Meds Allergies/Adverse Reactions: Allergies Allergy/AdvReac Type Severity Reaction Status Date / Time No Known Allergies Allergy Verified 11/26/15 12:27 Physical Exam - Constitutional Appears: In Acute Distress (mild respiratory) - Head Exam Head Exam: ATRAUMATIC, NORMAL INSPECTION, NORMOCEPHALIC - Eye Exam Eye Exam: EOMI, Normal appearance, PERRL - ENT Exam ENT Exam: Normal Exam Additional comments: poor dentition - Neck Exam Neck exam: Positive for: Normal Inspection - Respiratory Exam Respiratory Exam: Wheezes (diffusely, inspiratory and expiratory), Respiratory Distress (mild). absent: Chest Wall Tenderness, Rales, Rhonchi - Cardiovascular Exam Cardiovascular Exam: REGULAR RHYTHM, +S1, +S2 - GI/Abdominal Exam GI & Abdominal Exam: Normal Bowel Sounds, Soft. absent: Tenderness - Extremities Exam Extremities exam: Negative for: pedal edema, tenderness Additional comments: resting tremor, bilateral upper extremities - Neurological Exam Neurological exam: Alert, CN II-XII Intact, Oriented x3 - Skin Skin Exam: Dry, Intact, Normal Color, Warm Results - Vital Signs Recent Vital Signs: Last Vital Signs Temp 97.8 F 05/14/17 19:25 Pulse 86 05/14/17 19:25 Resp 20 05/14/17 19:25 BP 124/102 H 05/14/17 19:25 Pulse Ox 99 05/14/17 21:02 - Labs Result Diagrams: 05/14/17 20:01 05/14/17 20:01 Assessment & Plan - Assessment and Plan (Free Text) Assessment: 82 year old gentleman with dyspnea, non productive cough and chest tightness admitted for acute asthma exacerbation. The patient remains dyspneic with diffuse wheezing despite nebulized treatments and IV solumedrol. All labs and imaging available reviewed. Patient has eosinophilia, likely related to his asthma exacerbation, without leukocytosis. ABG: Po2 75 (normal > 80) , arterial oxygen saturation 98.1, no CO2 retention The patient only has Ventolin outpatient, he will need inhaled corticosteroids in addition to this as his asthma is not currently controlled. PFTs should also be done once patients asthma exacerbation has resolved as outpatient. #Acute Asthma Exacerbation #Resting tremor #DVT Prophylaxis -Scheduled duonebs q4 jessica and Prednisone -monitor respiratory status -scds for dvt prophylaxis -follow cultures done in ED. -BP meds started -His current medications to be confirmed with his pharmacy: [facility] in [place].
[2017-05-14 22:40] LABS: RBC URINE 1 /hpf (0-3); URINE BILIRUBIN NEGATIVE (NEGATIVE); URINE BLOOD NEGATIVE (NEGATIVE); URINE COLOR STRAW (YELLOW); URINE GLUCOSE (UA) NEG (Normal); URINE KETONE NEGATIVE (NEGATIVE); URINE LEUKOCYTE ESTERASE NEG Leu/uL (Negative); URINE PROTEIN NEGATIVE (NEGATIVE); URINE UROBILINOGEN 0.2-1.0 mg/dL (0.2-1.0); WBC URINE < 1 /hpf (0-5)
[2017-05-15] MEDS: Albuterol-Ipratrop 3 mg / 0.5 (3 ml) UD INH SCH ×7 (00:24→23:34)
[2017-05-15] MEDS ORDERED: Albuterol-Ipratrop 3 mg / 0.5 (3 ml) UD INH STA (05:26)
[2017-05-15] MEDS ORDERED: Albuterol 0.083% Inhal Sol (2.5 mg/3 mL) UD INH PRN (05:27)
[2017-05-15] MEDS: Enoxaparin 40 mg Syringe SC SCH (08:17)
[2017-05-15] MEDS ORDERED: Albuterol-Ipratrop 3 mg / 0.5 (3 ml) UD INH PRN (09:17)
--- NOTE | 2017-05-15 09:19 | CP.PCM.PN ---
Subjective - Date & Time of Evaluation Date of Evaluation: 05/15/17 Time of Evaluation: 08:15 - Subjective Subjective: Pt seen and examined at bedside. Upon entering room, pt was sitting over side of his bed eating breakfast. When he realized that someone else had entered his room, his b/l upper extremity tremor intensified and remained. Continues to feel SOB and dyspnea that lead to chest pressure, but that it has improved minimally from admission. Denies fevers/chills, n/v/d, or abdominal pain. Objective - Vital Signs/Intake and Output Vital Signs (last 24 hours): Temp Pulse Resp BP Pulse Ox 97.9 F 95 H 18 167/85 H 97 05/15/17 08:00 05/15/17 08:00 05/15/17 08:00 05/15/17 08:00 05/15/17 08:00 - Medications Medications: Current Medications Albuterol/Ipratropium (Duoneb 3 Mg/0.5 Mg (3 Ml) Ud) 3 ml INH RQ4 [facility] Last Admin: 05/15/17 07:35 Dose: 3 ml Albuterol/Ipratropium (Duoneb 3 Mg/0.5 Mg (3 Ml) Ud) 3 ml INH RQ4 PRN PRN Reason: Shortness of Breath Aspirin (Ecotrin) 81 mg PO DAILY [facility] Last Admin: 05/15/17 08:16 Dose: 81 mg Bisoprolol Fumarate (Zebeta) 5 mg PO DAILY [facility] Last Admin: 05/15/17 08:16 Dose: 5 mg Enoxaparin Sodium (Lovenox) 40 mg SC DAILY [facility] PRN Reason: Protocol Last Admin: 05/15/17 08:17 Dose: 40 mg Hydrochlorothiazide (Microzide) 12.5 mg PO DAILY [facility] Last Admin: 05/15/17 08:16 Dose: 12.5 mg Sodium Chloride (Sodium Chloride 0.9%) 1,000 mls @ 150 mls/hr IV .Q6H40M [facility] Last Admin: 05/14/17 20:00 Dose: 150 mls/hr Prednisone (Prednisone Tab) 60 mg PO DAILY [facility] - Labs Labs: PT 11.8 Seconds (9.8-13.1) 05/14/17 20:01 INR 1.1 (0.9-1.2) 05/14/17 20:01 APTT 26.6 Seconds (25.6-37.1) 05/14/17 20:01 - Constitutional Appears: Non-toxic, No Acute Distress, Chronically Ill - Head Exam Head Exam: ATRAUMATIC, NORMOCEPHALIC - Eye Exam Eye Exam: EOMI Pupil Exam: PERRL - Respiratory Exam Respiratory Exam: Decreased Breath Sounds, Rhonchi (lower lobes (mild)), Wheezes (diffuse, moderate) - Cardiovascular Exam Cardiovascular Exam: REGULAR RHYTHM, +S1, +S2. absent: JVD - GI/Abdominal Exam GI & Abdominal Exam: Soft, Normal Bowel Sounds. absent: Tenderness - Extremities Exam Extremities Exam: absent: Calf Tenderness, Pedal Edema Additional comments: b/l resting tremor; became more apparent after pt realized that he had company in the room - Neurological Exam Neurological Exam: Alert, Oriented x3 Assessment and Plan - Assessment and Plan (Free Text) Plan: 82 yo M w PMHx of Asthma, HTN, and ?parkinson's is admitted due to Acute Asthma Exacerbation 1) Acute Asthma Exacerbation -CXR: No active disease -Duoneb Q4H ALBERTO -Albuterol Neb Q4H PRN -Methylprednisolone 125mg IVP x1 [ER] -Prednisone 60mg PO Daily -f/u Pre/Post neb treatments -f/u BCx -f/u UCx -f/u respiratory examinations, consider 2) Bilateral Upper Extremity Tremors -MRI Brain (Mar 21): significant frontoparietal atrophy, left more pronounced than right. Small vessel disease is old. Acute small puntate diffusion weighted image on left parietal area consistent w lacunar stroke process. -EEG (Apr 13): No evidence of any epileptiform activity. Please clinically correlate. -consider re consulting Neuro 3) Hypertension -Uncontrolled -HCTZ 12.5mg -Bisoprolol 5mg PO Daily -f/u BPs following medication administration 4) DVT Prophylaxis -Lovenox 40mg SC Daily -SCDs
--- NOTE | 2017-05-15 09:24 | RAD ---
HISTORY: Sepsis Patient . Portable study 19:47. COMPARISON: 03/20/2017 FINDINGS: LUNGS: No active pulmonary disease. PLEURA: No significant pleural effusion identified, no pneumothorax apparent. CARDIOVASCULAR: No radiographic findings to suggest acute or significant cardiovascular disease. OSSEOUS STRUCTURES: No significant abnormalities. VISUALIZED UPPER ABDOMEN: Normal. OTHER FINDINGS: None. IMPRESSION: No active disease. No significant interval change compared to the prior examination(s).
--- NOTE | 2017-05-15 13:44 | CT ---
PROCEDURE: CT Chest without contrast HISTORY: Dyspnea, shortness of breath COMPARISON: None. TECHNIQUE: Contiguous axial images were obtained through the chest without intravenous contrast enhancement. Sagittal and coronal reconstructions were performed. Radiation dose (DLP): 438.70 mGy-cm. This CT exam was performed using one or more of the following dose reduction techniques: Automated exposure control, adjustment of the mA and/or kV according to patient size, and/or use of iterative reconstruction technique. FINDINGS: LUNGS: 4 mm noncalcified well-circumscribed pulmonary nodule superior segment left lower lobe. Reference images series 3, image 61 axial images. Sagittal series 602, image 90. Hyperinflation, manifestations of COPD. Bronchial thickening lower lobe distribution consistent with bronchitis without evidence of bronchiectasis or mucus plugging. MEDIASTINUM: Unremarkable thoracic aorta. No aneurysm. No radiographic findings to suggest acute or significant cardiovascular disease.. Dilated main pulmonary artery 3.4 cm consistent with pulmonary arterial hypertension. No vascular congestion. No lymphadenopathy. PLEURA: No significant findings. Sub cm focal pleural thickening axial series 3, image 41 at and sagittal 62 image 118 BONES: No fracture. No destructive lesion. UPPER ABDOMEN: Right adrenal adenoma 1.4 cm. Similar finding identified CT scan abdomen and pelvis 01/24/2012. OTHER FINDINGS: None. IMPRESSION: No acute findings related to/accounting for the clinical presentation. Manifestations of COPD/ lower airway disease -bronchitis. 4 mm pulmonary nodule left lower lobe. Fleischner society pulmonary nodule recommendations . A. Low risk patients: Minimal or absent history of smoking and/or other known risk factors B. High risk patients: History of smoking or of other known risk factors Nodules size less than or equal to 4 mm Low-risk patients: No followup needed High-risk patients: Followup in 12 months and if no change, no further imaging needed
[2017-05-15] MEDS: Albuterol 0.083% Inhal Sol (2.5 mg/3 mL) UD INH PRN ×2 (14:16→21:11)
[2017-05-16] MEDS: Albuterol-Ipratrop 3 mg / 0.5 (3 ml) UD INH SCH ×4 (04:15→19:02)
[2017-05-16 06:30] LABS: HEMATOCRIT 39.4 % (35.0-51.0); MEAN CELL VOLUME 93.9 fl (80.0-94.0); MEAN CORPUSCULAR HEMOGLOBIN 31.9 pg (27.0-31.0); RED CELL DISTRIBUTION WIDTH 12.9 % (11.5-14.5); WHITE BLOOD COUNT 11.3 K/uL (4.8-10.8)
[2017-05-16 06:40] LABS: ALB/GLOB RATIO 1.3 (1.0-2.1); ALKALINE PHOSPHATASE 76 U/L (38-126); ALT/SGPT 30 U/L (21-72); AST/SGOT 47 U/L (17-59); BILIRUBIN,TOTAL 0.7 mg/dl (0.2-1.3); BLOOD UREA NITROGEN 21 mg/dl (9-20); CALCIUM 9.5 mg/dL (8.4-10.2); CARBON DIOXIDE 29 mmol/L (22-30); CHLORIDE 98 mmol/L (98-107); GFR AFRICAN-AMERICAN > 60; GLUCOSE,RANDOM 129 mg/dL (75-110); POTASSIUM 3.8 MMOL/L (3.6-5.0); SODIUM 138 mmol/l (132-148); TOTAL PROTEIN 7.4 G/DL (6.3-8.2)
[2017-05-16] MEDS: Enoxaparin 40 mg Syringe SC SCH (08:49)
--- NOTE | 2017-05-16 09:48 | CP.PCM.PN ---
Subjective - Date & Time of Evaluation Date of Evaluation: 05/16/17 Time of Evaluation: 07:05 - Subjective Subjective: Patient seen and examined at bedside this morning in telemetry unit. Patient still short of breath, but denies chest pain, dizziness, N/V, abdominal pain. Talking in full sentencess, alert, awake and oriented X 3 Still in NC 2 LPM, afebrile Objective - Vital Signs/Intake and Output Vital Signs (last 24 hours): Temp Pulse Resp BP Pulse Ox 98.4 F 85 20 155/87 H 97 05/16/17 08:00 05/16/17 08:00 05/16/17 08:00 05/16/17 08:00 05/16/17 08:00 - Medications Medications: Current Medications Albuterol Sulfate (Albuterol 0.083% Inhal Cuca (2.5 Mg/3 Ml) Ud) 2.5 mg INH RQ4 PRN PRN Reason: Shortness of Breath Last Admin: 05/15/17 21:11 Dose: 2.5 mg Albuterol/Ipratropium (Duoneb 3 Mg/0.5 Mg (3 Ml) Ud) 3 ml INH RQ4 [facility] Last Admin: 05/16/17 07:39 Dose: 3 ml Aspirin (Ecotrin) 81 mg PO DAILY [facility] Last Admin: 05/16/17 08:49 Dose: 81 mg Bisoprolol Fumarate (Zebeta) 5 mg PO DAILY [facility] Last Admin: 05/16/17 08:51 Dose: 5 mg Enoxaparin Sodium (Lovenox) 40 mg SC DAILY [facility] PRN Reason: Protocol Last Admin: 05/16/17 08:49 Dose: 40 mg Hydrochlorothiazide (Microzide) 12.5 mg PO DAILY [facility] Last Admin: 05/16/17 08:51 Dose: 12.5 mg Prednisone (Prednisone Tab) 60 mg PO DAILY [facility] Last Admin: 05/16/17 08:51 Dose: 60 mg - Labs Labs: 05/16/17 05:55 05/16/17 05:55 PT 11.8 Seconds (9.8-13.1) 05/14/17 20:01 INR 1.1 (0.9-1.2) 05/14/17 20:01 APTT 26.6 Seconds (25.6-37.1) 05/14/17 20:01 - Constitutional Appears: No Acute Distress - ENT Exam ENT Exam: Mucous Membranes Moist - Respiratory Exam Respiratory Exam: Rhonchi (diffuse, scant wheezing and rhonchi b/l), Wheezes, NORMAL BREATHING PATTERN. absent: Rales, Respiratory Distress - Cardiovascular Exam Cardiovascular Exam: REGULAR RHYTHM, +S1, +S2 - GI/Abdominal Exam GI & Abdominal Exam: Soft, Normal Bowel Sounds. absent: Distended, Guarding, Rigid, Tenderness - Extremities Exam Extremities Exam: Normal Inspection. absent: Calf Tenderness, Pedal Edema - Neurological Exam Neurological Exam: Alert, Awake, Oriented x3 Assessment and Plan - Assessment and Plan (Free Text) Assessment: 82 yo M with PMHx of questionable Asthma, HTN, and questionable parkinson's disease admitted with Acute Asthma Exacerbation, however can not r/o COPD. Plan: Acute Asthma Exacerbation, but can not r/o COPD Former smoker -NC at 2 LPM, afebrile -c/w Duoneb Q4H [facility] -c/w Albuterol Neb Q4H PRN -c/w Prednisone 60 mg PO Daily -f/u Pre/Post neb treatments -BCx no growth x 24 hours -UCx nob growth -f/u clinical status -f/u Walk test/Pulse oxymeter -Pulmunology on board, Dr. Julio, f/u recommendations -Chest CT showed manifestations of COPD/lower airways disease-bronchitis -CXR: No active disease Bilateral Upper Extremity Resting Tremors Previous diagnosis of Parkinson vs Stafford's vs Caudate ganglion dysfunction noted in Neuro's note on last admission -Previous Parkinson's disease meds( Sinemet, Pramipexole) were DC on previous admission on March, by neuro, Dr. Pizarro, because his symptoms got worse on Sinemet and adding Pramipexole MRI Brain (Mar 21): significant frontoparietal atrophy, left more pronounced than right. Small vessel disease is old. Acute small puntate diffusion weighted image on left parietal area consistent w lacunar stroke process. -EEG (Apr 13): No evidence of any epileptiform activity. Please clinically correlate. -Neuro consult appreciated, Dr. Valverde, f/u recommendations Hypertension -Uncontrolled -f/u Orthostatic BP -increased HCTZ from 12.5 to 25 mg PO daily -discontinued Bisoprolol 5mg because is not a cardio selective B clemencia and can contribute to bronco-constriction. -Start on cardio selective beta clemencia, Metoprolol XL 25 mg PO daily -f/u BPs DVT Prophylaxis -Lovenox 40mg SC Daily -SCDs
[2017-05-16 13:16] VITALS: BMI 24.3
[2017-05-16] MEDS: Albuterol 0.083% Inhal Sol (2.5 mg/3 mL) UD INH PRN (16:57)
--- NOTE | 2017-05-16 18:24 | CP.PCM.CON ---
History of Present Illness - History of Present Illness History of Present Illness: Mr. Alexis is an 82-year-old man with a long history of resting tremor, who was diagnosed with Parkinsons, but did not benefit from Sinemet. He is currently admitted for asthma/COPD exacerbation. He was seen by an outpatient neurologist in [place], and his medications were adjusted. As an inpatient , he continues to have significant upper extremity bilateral resting tremor of high amplitude and frequency. I was consulted to assist with the management and care. Review of Systems - Review of Systems All systems: reviewed and no additional remarkable complaints except Past Patient History - Infectious Disease Hx of Infectious Diseases: None - Past Medical History & Family History Past Medical History?: Yes - Past Social History Smoking Status: Former Smoker - CARDIAC Hx Cardiac Disorders: Yes Hx Congestive Heart Failure: No Hx Hypertension: Yes - PULMONARY Hx Respiratory Disorders: Yes Hx Asthma: Yes Hx Chronic Obstructive Pulmonary Disease (COPD): No - NEUROLOGICAL Hx Neurological Disorder: Yes Hx Parkinson's Disease: Yes - HEENT Hx HEENT Problems: No - RENAL Hx Chronic Kidney Disease: No - ENDOCRINE/METABOLIC Hx Endocrine Disorders: No - HEMATOLOGICAL/ONCOLOGICAL Hx Blood Disorders: No - INTEGUMENTARY Hx Dermatological Problems: No - MUSCULOSKELETAL/RHEUMATOLOGICAL Hx Musculoskeletal Disorders: Yes Hx Falls: No Hx Rhabdomyolysis: Yes - GASTROINTESTINAL Hx Gastrointestinal Disorders: No - GENITOURINARY/GYNECOLOGICAL Hx Genitourinary Disorders: No - PSYCHIATRIC Hx Psychophysiologic Disorder: No Hx Substance Use: No - SURGICAL HISTORY Hx Surgeries: No - ANESTHESIA Hx Anesthesia: No Meds Allergies/Adverse Reactions: Allergies Allergy/AdvReac Type Severity Reaction Status Date / Time No Known Allergies Allergy Verified 11/26/15 12:27 - Medications Medications: Current Medications Albuterol Sulfate (Albuterol 0.083% Inhal Cuca (2.5 Mg/3 Ml) Ud) 2.5 mg INH RQ4 PRN PRN Reason: Shortness of Breath Last Admin: 05/16/17 16:57 Dose: 2.5 mg Albuterol/Ipratropium (Duoneb 3 Mg/0.5 Mg (3 Ml) Ud) 3 ml INH RQ6 [facility] Aspirin (Ecotrin) 81 mg PO DAILY [facility] Last Admin: 05/16/17 08:49 Dose: 81 mg Docusate Sodium (Colace) 200 mg PO DAILY [facility] Last Admin: 05/16/17 16:45 Dose: 200 mg Enoxaparin Sodium (Lovenox) 40 mg SC DAILY [facility] PRN Reason: Protocol Last Admin: 05/16/17 08:49 Dose: 40 mg Hydrochlorothiazide (Hydrodiuril) 25 mg PO DAILY [facility] Metoprolol Succinate (Toprol Xl) 25 mg PO DAILY [facility] Prednisone (Prednisone Tab) 60 mg PO DAILY [facility] Last Admin: 05/16/17 08:51 Dose: 60 mg Physical Exam - Constitutional Appears: Well - Head Exam Head Exam: ATRAUMATIC, NORMAL INSPECTION, NORMOCEPHALIC - Eye Exam Eye Exam: EOMI, Normal appearance, PERRL Pupil Exam: NORMAL ACCOMODATION, PERRL - ENT Exam ENT Exam: Mucous Membranes Moist - Neck Exam Neck exam: Positive for: Normal Inspection - Respiratory Exam Respiratory Exam: Wheezes, NORMAL BREATHING PATTERN - Cardiovascular Exam Cardiovascular Exam: REGULAR RHYTHM, +S1, +S2 - GI/Abdominal Exam GI & Abdominal Exam: Normal Bowel Sounds, Soft. absent: Tenderness - Rectal Exam Rectal Exam: Deferred - Extremities Exam Extremities exam: Positive for: normal inspection - Back Exam Back exam: NORMAL INSPECTION - Neurological Exam Neurological exam: Abnormal Gait, Alert, CN II-XII Intact, Oriented x3, Reflexes Normal Additional comments: Bilateral upper and lower extremities resting tremor with some tremor with intention as well that is worse in the upper extremities and appears to have high frequency at the end of an intention. - Psychiatric Exam Psychiatric exam: Normal Affect, Normal Mood - Skin Skin Exam: Dry, Intact, Normal Color, Warm Results - Vital Signs Recent Vital Signs: Last Vital Signs Temp 98.5 F 05/16/17 15:48 Pulse 80 05/16/17 15:48 Resp 20 05/16/17 15:48 BP 144/73 05/16/17 15:48 Pulse Ox 95 05/16/17 15:48 - Labs Result Diagrams: 05/16/17 05:55 05/16/17 05:55 Labs: Laboratory Results - last 24 hr 05/16/17 05/16/17 05:55 05:55 WBC 11.3 H RBC 4.19 L Hgb 13.4 Hct 39.4 MCV 93.9 MCH 31.9 H MCHC 34.0 RDW 12.9 Plt Count 144 Sodium 138 Potassium 3.8 Chloride 98 Carbon Dioxide 29 Anion Gap 15 BUN 21 H Creatinine 0.9 Est GFR ( Amer) > 60 Est GFR (Non-Af Amer) > 60 Random Glucose 129 H Calcium 9.5 Total Bilirubin 0.7 AST 47 ALT 30 Alkaline Phosphatase 76 Total Protein 7.4 Albumin 4.2 Globulin 3.2 Albumin/Globulin Ratio 1.3 Assessment & Plan (1) Resting tremor Assessment and Plan: May start primidone 50 mg PO daily, if cleared by primary team, since he is not a good candidate for higher doses of beta-blockers. He should be evaluated by neurosurgery as an outpatient for possible deep brain stimulator. No further recommendations at this time. Status: Chronic Priority: Medium
--- NOTE | 2017-05-16 18:45 | CON ---
DATE: HISTORY OF PRESENT ILLNESS: Mr. Alexis is an 82-year-old male who was referred for pulmonary evaluation by . He was admitted with shortness of breath, cough for the past several days prior to the presentation associated with some chest tightness. He indicates that the symptoms started while he was watching TV. He has used his 's nebulizer, but symptoms, however, worsened and he was brought to the emergency room. PAST MEDICAL HISTORY: He has past medical history of tremors of the extremities which he was told was not due to Parkinson's disease. He also has history of questionable asthma or COPD and hypertension. FAMILY HISTORY: Non-revealing. SOCIAL HISTORY: He quit smoking more than 20 years ago, but smoke for more than 10 years. REVIEW OF SYSTEMS: Essentially, unremarkable for tremors of extremities. PHYSICAL EXAMINATION GENERAL: The patient is alert and oriented. Appears to be much more comfortable, since admission. VITAL SIGNS: Blood pressure of 155/87, pulse of 85, and respiratory rate of 20 per minute. He is afebrile. O2 saturation of 97% on nasal cannula oxygen. SKIN: Shows fair turgor. HEENT: Pupils are equal, round and reactive to light and accommodation. Mouth shows fair hygiene. JVP is flat. LUNGS: Fair aeration with minimal wheezing at bases. HEART: S1 and S2. ABDOMEN: Soft and nontender. No organomegaly. EXTREMITIES: Shows no edema or cyanosis. CENTRAL NERVOUS SYSTEM: The patient has tremors of the extremities, otherwise unremarkable. LABORATORY DATA: Remarkable for WBC of 11.3, hemoglobin of 13.4, and platelet count of 114,000, and has an eosinophil count of 14.3. Sodium of 138, potassium of 3.8, BUN of 21, and creatinine of 0.9. Serum glucose is 129. ABGs, pH of 7.3, pCO2 of 43, pO2 of 75, and O2 saturation of 98.1. DIAGNOSTIC DATA: CT scan of the chest is remarkable for no acute findings expect for manifestation of COPD of lower airways and 4 mm of pulmonary nodule in the left lower lobe. IMPRESSION: Acute exacerbation of what appears to be asthma, although chronic obstructive pulmonary disease cannot be completely excluded. The patient also has tremors of extremities which a concerning,but the patient indicates that he was told it was not Parkinson's. Hypertension slightly controlled. PLAN: The plan wound be to continue aerosolized bronchodilators, oxygen therapy, mildly steroids with probably need to have these medications for tremors adjusted. We will continue to follow with you. Abhay Amador MD
[2017-05-17] MEDS: Albuterol-Ipratrop 3 mg / 0.5 (3 ml) UD INH SCH ×4 (01:05→15:17)
--- NOTE | 2017-05-17 07:59 | CP.PCM.PN ---
Subjective - Date & Time of Evaluation Date of Evaluation: 05/17/17 Time of Evaluation: 07:20 - Subjective Subjective: Patient seen and examined in telemetry unit this morning. Patient was sleeping and no tremors noted, easy arousable. Alert and oriented X 3. Less SOB than yesterday afebrile, still on NC 3 LPM Objective - Vital Signs/Intake and Output Vital Signs (last 24 hours): Temp Pulse Resp BP Pulse Ox 97.6 F 77 19 148/98 H 98 05/17/17 05:00 05/17/17 05:00 05/17/17 05:00 05/17/17 05:00 05/17/17 05:00 - Medications Medications: Current Medications Albuterol Sulfate (Albuterol 0.083% Inhal Cuca (2.5 Mg/3 Ml) Ud) 2.5 mg INH RQ4 PRN PRN Reason: Shortness of Breath Last Admin: 05/16/17 16:57 Dose: 2.5 mg Albuterol/Ipratropium (Duoneb 3 Mg/0.5 Mg (3 Ml) Ud) 3 ml INH RQ6 [facility] Last Admin: 05/17/17 07:25 Dose: 3 ml Aspirin (Ecotrin) 81 mg PO DAILY [facility] Last Admin: 05/16/17 08:49 Dose: 81 mg Docusate Sodium (Colace) 200 mg PO DAILY [facility] Last Admin: 05/16/17 16:45 Dose: 200 mg Enoxaparin Sodium (Lovenox) 40 mg SC DAILY [facility] PRN Reason: Protocol Last Admin: 05/16/17 08:49 Dose: 40 mg Hydrochlorothiazide (Hydrodiuril) 25 mg PO DAILY [facility] Metoprolol Succinate (Toprol Xl) 25 mg PO DAILY [facility] Pantoprazole Sodium (Protonix Ec Tab) 40 mg PO DAILY [facility] Prednisone (Prednisone Tab) 60 mg PO DAILY [facility] Last Admin: 05/16/17 08:51 Dose: 60 mg - Labs Labs: 05/16/17 05:55 05/16/17 05:55 PT 11.8 Seconds (9.8-13.1) 05/14/17 20:01 INR 1.1 (0.9-1.2) 05/14/17 20:01 APTT 26.6 Seconds (25.6-37.1) 05/14/17 20:01 - Constitutional Appears: No Acute Distress - ENT Exam ENT Exam: Mucous Membranes Moist - Respiratory Exam Respiratory Exam: Rhonchi, Wheezes (scant diffuse wheezes and rhonchi bilateral , however less than yesterday), NORMAL BREATHING PATTERN - Cardiovascular Exam Cardiovascular Exam: REGULAR RHYTHM, +S1, +S2 - GI/Abdominal Exam GI & Abdominal Exam: Soft, Normal Bowel Sounds. absent: Distended, Guarding, Rigid, Tenderness - Extremities Exam Extremities Exam: Normal Inspection. absent: Calf Tenderness, Pedal Edema - Neurological Exam Neurological Exam: Alert, Awake, Oriented x3 Assessment and Plan - Assessment and Plan (Free Text) Assessment: 82 yo M with PMHx of questionable Asthma, HTN, and questionable parkinson's disease admitted with Acute Asthma Exacerbation, however can not r/o COPD. Plan: Acute Asthma Exacerbation, but can not r/o COPD Former smoker -NC at 2 LPM, afebrile -decreased Duoneb Q8H [facility] -c/w Albuterol Neb Q4H PRN -decreased Prednisone from 60 to 40 mg PO Daily -c/w protonix 40 mg PO -f/u Pre/Post neb treatments -BCx no growth x 48 hours -UCx no growth -f/u clinical status -Walk test/Pulse oxymeter showed the lowest oxygen saturation was 75 %. Will need to be discharge in home oxygen @ 2 LPM -Pulmunology on board, Dr. Julio -Pulmunology agrees with Advair diskus 250/50 Q12, tapering of prednisone, duoneb, home oxygen -Chest CT showed manifestations of COPD/lower airways disease-bronchitis -CXR: No active disease Bilateral Upper Extremity Resting Tremors As per Neuro patient's tremors is most likely essential tremors and recommended to start low dose of Primidone, 50 mg daily PO, and also patient will benefit for neurosurgical evaluation as outpatient for DBS. Recommended Ivanna scan as outpatient to disprove the existence of Parkinson's. No clinical manifestations of Parkinson's disease -Previous Parkinson's disease meds( Sinemet, Pramipexole) were DC on previous admission on March, by neuro, Dr. Pizarro, because his symptoms got worse on Sinemet and adding Pramipexole MRI Brain (Mar 21): significant frontoparietal atrophy, left more pronounced than right. Small vessel disease is old. Acute small puntate diffusion weighted image on left parietal area consistent w lacunar stroke process. -EEG (Apr 13): No evidence of any epileptiform activity. Please clinically correlate. -Neuro consult appreciated, Dr. Valverde, f/u recommendations Hypertension -Uncontrolled -f/u Orthostatic BP -c/w HCTZ 25 mg PO daily -c/w Metoprolol XL 25 mg PO daily -f/u BPs DVT Prophylaxis -Lovenox 40mg SC Daily -SCDs
[2017-05-17] MEDS: Enoxaparin 40 mg Syringe SC SCH (08:59)
[2017-05-17] MEDS: Pantoprazole 40 mg EC Tab PO SCH (09:00)
[2017-05-17] MEDS: Metoprolol Succinate 25 mg XL Tab PO SCH (09:00)
--- NOTE | 2017-05-17 09:23 | CP.PCM.PN ---
Subjective - Date & Time of Evaluation Date of Evaluation: 05/17/17 Time of Evaluation: 09:25 - Subjective Subjective: SOB IMPROVED COUGHING UP THICK TENACEOUS SPUTUM WANTS TO GO HOME O2 SAT ON 6 MIN WALK--75% Objective - Vital Signs/Intake and Output Vital Signs (last 24 hours): Temp Pulse Resp BP Pulse Ox 98.5 F 107 H 20 159/88 H 94 L 05/17/17 08:18 05/17/17 09:00 05/17/17 08:18 05/17/17 09:00 05/17/17 08:18 - Medications Medications: Current Medications Albuterol Sulfate (Albuterol 0.083% Inhal Cuca (2.5 Mg/3 Ml) Ud) 2.5 mg INH RQ4 PRN PRN Reason: Shortness of Breath Last Admin: 05/16/17 16:57 Dose: 2.5 mg Albuterol/Ipratropium (Duoneb 3 Mg/0.5 Mg (3 Ml) Ud) 3 ml INH RQ6 [facility] Last Admin: 05/17/17 07:25 Dose: 3 ml Aspirin (Ecotrin) 81 mg PO DAILY [facility] Last Admin: 05/17/17 08:58 Dose: 81 mg Docusate Sodium (Colace) 200 mg PO DAILY [facility] Last Admin: 05/17/17 08:58 Dose: 200 mg Enoxaparin Sodium (Lovenox) 40 mg SC DAILY [facility] PRN Reason: Protocol Last Admin: 05/17/17 08:59 Dose: 40 mg Hydrochlorothiazide (Hydrodiuril) 25 mg PO DAILY [facility] Last Admin: 05/17/17 08:59 Dose: 25 mg Metoprolol Succinate (Toprol Xl) 25 mg PO DAILY [facility] Last Admin: 05/17/17 09:00 Dose: 25 mg Pantoprazole Sodium (Protonix Ec Tab) 40 mg PO DAILY [facility] Last Admin: 05/17/17 09:00 Dose: 40 mg Prednisone (Prednisone Tab) 60 mg PO DAILY [facility] Last Admin: 05/17/17 09:00 Dose: 60 mg - Labs Labs: 05/16/17 05:55 05/16/17 05:55 PT 11.8 Seconds (9.8-13.1) 05/14/17 20:01 INR 1.1 (0.9-1.2) 05/14/17 20:01 APTT 26.6 Seconds (25.6-37.1) 05/14/17 20:01 - Constitutional Appears: No Acute Distress, Chronically Ill - Head Exam Head Exam: ATRAUMATIC, NORMAL INSPECTION, NORMOCEPHALIC - Eye Exam Eye Exam: EOMI, Normal appearance, PERRL Pupil Exam: NORMAL ACCOMODATION, PERRL - ENT Exam ENT Exam: Mucous Membranes Moist, Normal Exam - Neck Exam Neck Exam: Full ROM, Normal Inspection. absent: Lymphadenopathy - Respiratory Exam Respiratory Exam: Wheezes, NORMAL BREATHING PATTERN - Cardiovascular Exam Cardiovascular Exam: REGULAR RHYTHM, +S1, +S2. absent: Murmur - GI/Abdominal Exam GI & Abdominal Exam: Soft, Normal Bowel Sounds. absent: Tenderness - Rectal Exam Rectal Exam: NORMAL INSPECTION - Extremities Exam Extremities Exam: Full ROM, Normal Capillary Refill, Normal Inspection. absent : Joint Swelling, Pedal Edema Additional comments: TREMORS - Back Exam Back Exam: NORMAL INSPECTION - Neurological Exam Neurological Exam: Alert, Awake, CN II-XII Intact, Normal Gait, Oriented x3 - Psychiatric Exam Psychiatric exam: Normal Affect, Normal Mood - Skin Skin Exam: Dry, Intact, Normal Color, Warm Assessment and Plan - Assessment and Plan (Free Text) Assessment: ACUTE EXAC OF ASTHMA--PROBABLY COPD--BASED ON O2 SAT AND CT SCAN FINDINGS MUCUS PLUGGING OF AIRWAYS PARKINSONS DZ? Plan: CASE DISCUSSED WITH PATIENT ACCESS REGISTRAR--OK TO DISCHARGE ON TAPERING DOSES OF PREDNISONE,ADVAIR,DUONEB AND O2 AT 2L/MIN CONTINOUS OR TRANSFER TO TCU IF PT AGREES
--- NOTE | 2017-05-17 14:04 | CARD ---
APPROVED REPORT EXAM: Two-dimensional and M-mode echocardiogram with Doppler and color Doppler. Other Information Quality : GoodRhythm : NSR INDICATION Dyspnea 2D DIMENSIONS IVSd1.40 (0.7-1.1cm)LVDd4.05 (3.9-5.9cm) LVOT Diameter2.51 (1.8-2.4cm)PWd0.97 (0.7-1.1cm) IVSs1.37 (0.8-1.2cm)LVDs2.56 (2.5-4.0cm) FS (%) 36.7 %PWs1.45 (0.8-1.2cm) M-Mode DIMENSIONS Left Atrium (MM)3.50 (2.5-4.0cm)IVSd0.84 (0.7-1.1cm) Aortic Root3.31 (2.2-3.7cm)LVDd5.97 (4.0-5.6cm) Aortic Cusp Exc.1.88 (1.5-2.0cm)PWd0.94 (0.7-1.1cm) IVSs1.22 cmFS (%) 31 % LVDs4.09 (2.0-3.8cm)PWs1.41 cm Mitral Valve MV E Yywxwlfw74.4cm/sMV DECEL [id number] A Qguovwxb71.0cm/s MV XOS04csQ/A ratio0.6MVA (PHT)2.93cm2 TDI Lateral E' Peak V6.19cm/sMedial E' Peak V3.67cm/sE/Lateral E'7.5 E/Medial E'12.6 Pulmonary Valve PV Peak Pmlbmqal40.1cm/s Tricuspid Valve TR Peak [id number]/sRAP [id number] Peak Gr.20mmHg [id number] LEFT VENTRICLE The left ventricle is normal size. There is normal left ventricular wall thickness. Left ventricle systolic functionsystolic function is normal. The Ejection Fraction is 55-60%. There is normal LV segmental wall motion. Transmitral Doppler flow pattern is Grade I-abnormal relaxation pattern. RIGHT VENTRICLE The right ventricle is normal size. There is normal right ventricular wall thickness. The right ventricular systolic function is normal. ATRIA The left atrium size is normal. The right atrium size is normal. AORTIC VALVE The aortic valve is normal in structure. There is trace to mild aortic regurgitation. There is no aortic valvular stenosis. MITRAL VALVE The mitral valve is normal in structure. There is no evidence of mitral valve prolapse. There is no mitral valve stenosis. Mitral regurgitation is mild. TRICUSPID VALVE The tricuspid valve is normal in structure. There is trace to mild tricuspid regurgitation. Right ventricular systolic pressure is estimated at 30 mmHg. There is no pulmonary hypertension. PULMONIC VALVE The pulmonary valve is normal in structure. There is mild pulmonic valvular regurgitation. GREAT VESSELS The aortic root is normal in size. The IVC is normal in size and collapses >50% with inspiration. PERICARDIAL EFFUSION The pericardium appears normal. <Conclusion> The left ventricle is normal size. There is normal left ventricular wall thickness. There is normal LV segmental wall motion. Left ventricle systolic functionsystolic function is normal. The Ejection Fraction is 55-60%. Transmitral Doppler flow pattern is Grade I-abnormal relaxation pattern.
[2017-05-17] MEDS ORDERED: Bisacodyl 5mg EC Tab PO ONE (16:45)
[2017-05-17] MEDS: Fluticasone-Salmeterol 250-50mcg Diskus IH SCH (21:32)
[2017-05-18] MEDS: Albuterol-Ipratrop 3 mg / 0.5 (3 ml) UD INH SCH ×3 (00:03→15:21)
[2017-05-18] MEDS: Albuterol 0.083% Inhal Sol (2.5 mg/3 mL) UD INH PRN (04:19)
[2017-05-18 08:13] VITALS: RESP 18
--- NOTE | 2017-05-18 08:44 | CP.PCM.DIS ---
Provider - Provider Date of Admission: 05/15/17 12:28 Attending physician: Monie Acevedo MD Consults: Neurologist, Dr. Valverde Shot Polisher And Inspector, Dr. Amador Time Spent in preparation of Discharge (in minutes): 30 Diagnosis - Discharge Diagnosis (1) Acute asthma exacerbation Status: Acute Comment: vs COPD. improving (2) Hypertension Status: Chronic Comment: f/u with PMD in 1 week (3) Resting tremor Status: Chronic Priority: Medium Comment: as per neuro patient should be evaluated by neurosurgery as an outpatient for possible deep brain stimulator. Recommended primidone 50 mg PO daily. Hospital Course - Lab Results Lab Results: Most Recent Lab Values WBC 11.3 K/uL (4.8-10.8) H 05/16/17 05:55 RBC 4.19 Mil/uL (4.40-5.90) L 05/16/17 05:55 Hgb 13.4 g/dL (12.0-18.0) 05/16/17 05:55 Hct 39.4 % (35.0-51.0) 05/16/17 05:55 MCV 93.9 fl (80.0-94.0) 05/16/17 05:55 MCH 31.9 pg (27.0-31.0) H 05/16/17 05:55 MCHC 34.0 g/dL (33.0-37.0) 05/16/17 05:55 RDW 12.9 % (11.5-14.5) 05/16/17 05:55 Plt Count 144 K/uL (130-400) 05/16/17 05:55 MPV 8.8 fl (7.2-11.7) 05/14/17 20:01 Neut % (Auto) 60.7 % (50.0-75.0) 05/14/17 20:01 Lymph % (Auto) 17.5 % (20.0-40.0) L 05/14/17 20:01 [place] % (Auto) 6.7 % (0.0-10.0) 05/14/17 20:01 Eos % (Auto) 14.3 % (0.0-4.0) H 05/14/17 20:01 Baso % (Auto) 0.8 % (0.0-2.0) 05/14/17 20:01 Neut # 6.3 K/uL (1.8-7.0) 05/14/17 20:01 Lymph # 1.8 K/uL (1.0-4.3) 05/14/17 20:01 [place] # 0.7 K/uL (0.0-0.8) 05/14/17 20:01 Eos # 1.5 K/uL (0.0-0.7) H 05/14/17 20:01 Baso # 0.1 K/uL (0.0-0.2) 05/14/17 20:01 PT 11.8 Seconds (9.8-13.1) 05/14/17 20:01 INR 1.1 (0.9-1.2) 05/14/17 20:01 APTT 26.6 Seconds (25.6-37.1) 05/14/17 20:01 pCO2 43 mm/Hg (35-45) 05/14/17 19:46 pO2 75 mm/Hg (80-100) L 05/14/17 19:46 HCO3 25.5 mmol/L (21-28) 05/14/17 19:46 ABG pH 7.39 (7.35-7.45) 05/14/17 19:46 ABG Total CO2 27.3 mmol/L (22-28) 05/14/17 19:46 ABG O2 Saturation 98.1 % (95-98) H 05/14/17 19:46 ABG Base Excess 0.8 mmol/L (-2.0-3.0) 05/14/17 19:46 Arnold Test Yes 05/14/17 19:46 ABG Potassium 4.2 mmol/L (3.6-5.2) 05/14/17 19:46 A-a O2 Difference 21.0 mm/Hg 05/14/17 19:46 Sodium 134.0 mmol/L (132-148) 05/14/17 19:46 Chloride 102.0 mmol/L (98-107) 05/14/17 19:46 Glucose 106 mg/dL (75-110) 05/14/17 19:46 Lactate 1.4 mmol/L (0.7-2.1) 05/14/17 19:46 FiO2 21.0 % 05/14/17 19:46 Sodium 138 mmol/l (132-148) 05/16/17 05:55 Potassium 3.8 MMOL/L (3.6-5.0) 05/16/17 05:55 Chloride 98 mmol/L (98-107) 05/16/17 05:55 Carbon Dioxide 29 mmol/L (22-30) 05/16/17 05:55 Anion Gap 15 (10-20) 05/16/17 05:55 BUN 21 mg/dl (9-20) H 05/16/17 05:55 Creatinine 0.9 mg/dL (0.8-1.5) 05/16/17 05:55 Est GFR ( Amer) > 60 05/16/17 05:55 Est GFR (Non-Af Amer) > 60 05/16/17 05:55 POC Glucose (mg/dL) 120 mg/dL (65-110) H 05/17/17 21:17 Random Glucose 129 mg/dL (75-110) H 05/16/17 05:55 Calcium 9.5 mg/dL (8.4-10.2) 05/16/17 05:55 Phosphorus 4.4 mg/dl (2.5-4.5) 05/14/17 20:01 Magnesium 1.8 MG/DL (1.6-2.3) 05/14/17 20:01 Total Bilirubin 0.7 mg/dl (0.2-1.3) 05/16/17 05:55 AST 47 U/L (17-59) 05/16/17 05:55 ALT 30 U/L (21-72) 05/16/17 05:55 Alkaline Phosphatase 76 U/L (38-126) 05/16/17 05:55 Troponin I < 0.0120 ng/mL (0.00-0.120) 05/14/17 20:01 NT-Pro-B Natriuret Pep 310 pg/ml (0-900) 05/14/17 20:01 Total Protein 7.4 G/DL (6.3-8.2) 05/16/17 05:55 Albumin 4.2 g/dL (3.5-5.0) 05/16/17 05:55 Globulin 3.2 gm/dL (2.2-3.9) 05/16/17 05:55 Albumin/Globulin Ratio 1.3 (1.0-2.1) 05/16/17 05:55 Arterial Blood Potassium 4.2 mmol/L (3.6-5.2) 05/14/17 19:46 Urine Color Straw (YELLOW) 05/14/17 22:20 Urine Clarity Clear (Clear) 05/14/17 22:20 Urine pH 6.0 (5.0-8.0) 05/14/17 22:20 Ur Specific [place] 1.005 (1.003-1.030) 05/14/17 22:20 Urine Protein Negative mg/dL (NEGATIVE) 05/14/17 22:20 Urine Glucose (UA) Neg mg/dL (Normal) 05/14/17 22:20 Urine Ketones Negative mg/dL (NEGATIVE) 05/14/17 22:20 Urine Blood Negative (NEGATIVE) 05/14/17 22:20 Urine Nitrate Negative (NEGATIVE) 05/14/17 22:20 Urine Bilirubin Negative (NEGATIVE) 05/14/17 22:20 Urine Urobilinogen 0.2-1.0 mg/dL (0.2-1.0) 05/14/17 22:20 Ur Leukocyte Esterase Neg [place]/uL (Negative) 05/14/17 22:20 Urine RBC (Auto) 1 /hpf (0-3) 05/14/17 22:20 Urine Microscopic WBC < 1 /hpf (0-5) 05/14/17 22:20 - Hospital Course Hospital Course: 82 year old Male with PMHx of HTN, Chronic resting tremors admitted with acute asthma exacerbation vs COPD exacerbation based on oxygen saturation adn Chest CT scan findings. During admission patient was managed with oxygen via NC, bronchodilators, and steroids. Patient respiratory status improved with current medical management. Also BP was noted to be elevated and BP medications were adjustment to manage and control BP. Pulmonology was on board during admission. Patient desat to 75 % during walking test and was discharge on home oxygen. Also patient was seen and neurologist because unclear etiology of chronic resting tremors. As per Neuro most likely a presentation of essential tremors and recommended Primidone low dose and f/u as outpatient. Patient was seen and examined today. Stable to be discharge and will f/u with PMD at [facility] on 05/25/17. Home Medications: Home oxygen at 2 LPM Duoneb neb 1 vial Q8 hours for 1-2 days, then decrease frequency until using as needed Amlodipine 2.5 mg 1 tab po daily started on this admission because elevated BP Aspirin 81 mg PO daily Advair diskus 250/50 1 puff Q12 started on this admission as preventive treatment Hctz 25 mg PO daily increased dose from 12.5 mg in this admission Metoprolol Succ 25 mg PO daily, started on this admission to decreased risk of bronchoconstriction Prednisone 30 mg x 3 days, 20 mg x 3 days, 10 mg x 3 days Seroquel 25 mg PO daily Primidone 50 mg daily , as per neuro in this admission to manage possible essential tremors. Advise to start med in 1-2 weeks - Date & Time of H&P Date of H&P: 05/14/17 Time of H&P: 21:50 Discharge Exam - Head Exam Head Exam: ATRAUMATIC, NORMAL INSPECTION, NORMOCEPHALIC - Eye Exam Eye Exam: Normal appearance - ENT Exam ENT Exam: Mucous Membranes Moist - Respiratory Exam Respiratory Exam: Clear to PA & Lateral, NORMAL BREATHING PATTERN. absent: Rales, Rhonchi, Wheezes, Respiratory Distress - Cardiovascular Exam Cardiovascular Exam: REGULAR RHYTHM, +S1, +S2 - GI/Abdominal Exam GI & Abdominal Exam: Normal Bowel Sounds, Soft. absent: Distended, Guarding, Tenderness - Extremities Exam Extremities exam: normal inspection Additional comments: no edema in LE, no calves tenderness - Neurological Exam Neurological exam: Alert, Oriented x3 - Skin Skin Exam: Dry, Intact, Normal Color Discharge Plan - Discharge Medications Prescriptions: Albuterol 0.083% [Albuterol 0.083% Inhal Cuca (2.5 mg/3 ml) UD] 2.5 mg INH Q8 #1 amLODIPine [Norvasc] 2.5 mg PO DAILY #30 tab Fluticasone/Salmeterol 250/50 [Advair Diskus 250/50] 1 puff IH Q12 #1 puff hydroCHLOROthiazide [Hydrodiuril] 25 mg PO DAILY #30 tab Metoprolol Succinate [Toprol XL] 25 mg PO DAILY #30 tab Prednisone 30 mg PO DAILY #20 tab.ds.pk - Follow Up Plan Condition: STABLE Disposition: HOME/ ROUTINE Patient education suggested?: Yes Instructions: Chest Pain (DC), Asthma (DC) Additional Instructions: f/u with PMD at [facility] in 1 week. f/u with Neurology in 1 week ER precautions given
[2017-05-18] MEDS: Fluticasone-Salmeterol 250-50mcg Diskus IH SCH (08:48)
[2017-05-18] MEDS: Enoxaparin 40 mg Syringe SC SCH (08:49)
[2017-05-18] MEDS: Pantoprazole 40 mg EC Tab PO SCH (08:50)
[2017-05-18] MEDS: Metoprolol Succinate 25 mg XL Tab PO SCH (08:50)
--- NOTE | 2017-05-18 10:09 | CARD ---
APPROVED REPORT EKG Measurement Heart [id number] <Conclusion> Normal sinus rhythm Minimal voltage criteria for LVH, may be normal variant Borderline ECG
[2017-05-18 15:58] VITALS: BP 160/90; PULSE 83; TEMP 98.1; O2SAT 95
== END 2017-05-18 18:53 | disposition home health service (06) | DRG 203 ==
LOC: H.ER 19:13 → H.ERHOLD 20:52 → H.TEL 23:58 → OBSVTOIN 05-15 12:28
PROVIDERS: ADMIT Family Medicine Geriatric Medicine; ATTEND Family Medicine Geriatric Medicine
DX: J45.901 Unspecified asthma with (acute) exacerbation (principal); T17.990A Other foreign object in respiratory tract, part unspecified in causing asphyxiation, initial encounter; I10 Essential (primary) hypertension; Z87.891 Personal history of nicotine dependence; G25.2 Other specified forms of tremor; R91.1 Solitary pulmonary nodule

== ENCOUNTER 2017-07-03 11:42 | Emergency (ER) | payer MEDICARE ==
[2017-07-03 11:42] VITALS: BMI 24.3
[2017-07-03 12:01] VITALS: BP 146/99; PULSE 75; RESP 16; TEMP 99.2; O2SAT 99
--- NOTE | 2017-07-03 12:55 | ED PDOC ---
HPI: General Adult Time Seen by Provider: 07/03/17 12:18 Chief Complaint (Nursing): Cough, Cold, Congestion Chief Complaint (Provider): Rhinorrhea History Per: Patient, Family (daughter) History/Exam Limitations: no limitations Onset/Duration Of Symptoms: Days Have you had recent travel within the past 21 days to any of the following countries: [place], [place], [place] or [place]?: No Current Symptoms Are (Timing): Still Present Additional Complaint(s): Lyle Alexis, an 82 year old male, with a past medical history of COPD and hypertension presents to the ED complaining of nasal congestion and rhinnorhea. Patient has been using afarin 4-5x per day for the past 2 months. No fever/ chills No allergies to medicine PMD:Colt Pizarro Past Medical History Reviewed: Historical Data, Nursing Documentation, Vital Signs Vital Signs: Last Vital Signs Temp 99.2 F 07/03/17 12:01 Pulse 75 07/03/17 12:01 Resp 16 07/03/17 12:01 BP 146/99 H 07/03/17 12:01 Pulse Ox 99 07/03/17 13:00 - Medical History PMH: Asthma, COPD, HTN, Parkinson's Disease Denies: CHF, Chronic Kidney Disease - Surgical History Surgical History: No Surg Hx - Family History Family History: States: Unknown Family Hx - Living Arrangements Living Arrangements: With Family - Social History Current smoker - smoking cessation education provided: No (Former smoker) Ex-Smoker (has not smoked in the last 12 months): No Alcohol: None Drugs: Denies - Home Medications Home Medications: Ambulatory Orders Medication Instructions Recorded Aspirin [Ecotrin] 81 mg PO DAILY 03/25/17 QUEtiapine [Seroquel] 25 mg PO DAILY 05/14/17 Albuterol 0.083% [Albuterol 0.083% 2.5 mg INH Q8 #1 05/17/17 Inhal Cuca (2.5 mg/3 ml) UD] Metoprolol Succinate [Toprol XL] 25 mg PO DAILY #30 tab 05/17/17 hydroCHLOROthiazide [Hydrodiuril] 25 mg PO DAILY #30 tab 05/17/17 Fluticasone/Salmeterol 250/50 1 puff IH Q12 #1 puff 05/18/17 [Advair Diskus 250/50] Prednisone 30 mg PO DAILY #20 tab.ds.pk 05/18/17 amLODIPine [Norvasc] 2.5 mg PO DAILY #30 tab 05/18/17 Fluticasone Furoate [Flonase 2 sprays NS DAILY #2 bottle 07/03/17 Sensimist] - Allergies Allergies/Adverse Reactions: Allergies Allergy/AdvReac Type Severity Reaction Status Date / Time No Known Allergies Allergy Verified 07/03/17 12:04 Review of Systems ROS Statement: Except As Marked, All Systems Reviewed And Found Negative ENT: Positive for: Nose Discharge, Nose Congestion Respiratory: Negative for: Cough Gastrointestinal: Negative for: Nausea, Vomiting, Abdominal Pain Physical Exam - Reviewed Nursing Documentation Reviewed: Yes Vital Signs Reviewed: Yes - Physical Exam Appears: Positive for: Non-toxic, No Acute Distress Head Exam: Positive for: ATRAUMATIC, NORMAL INSPECTION, NORMOCEPHALIC Skin: Positive for: Normal Color, Warm, Dry. Negative for: Rash Eye Exam: Positive for: Normal appearance. Negative for: Nystagmus ENT: Negative for: Normal ENT Inspection (clear nasal drainage; edema and erythema of the nasal turbinates ) Neck: Positive for: Normal Cardiovascular/Chest: Positive for: Regular Rate, Rhythm, Chest Non Tender. Negative for: Tachycardia Respiratory: Positive for: Normal Breath Sounds. Negative for: Rales, Rhonchi, Wheezing, Respiratory Distress Back: Positive for: Normal Inspection Extremity: Positive for: Normal ROM Neurologic/Psych: Positive for: Alert, Oriented - ECG O2 Sat by Pulse Oximetry: 99 (RA) Pulse Ox Interpretation: Normal Medical Decision Making Medical Decision Makin Initial Impression 82 y/o male presenting with nasal congestion and rhinnorhea 1257 Patient is medically stable and will be discharged home with prescription for flonaze and instructions to follow up with the clinic. Discussed to discontinue afrin and congestion may become worse before it improves. Scribe Attestation Documented by Regina Sharp acting as a scribe for Eusebia Connelly PA-C. MD Charles Attestation All medical record entries made by the Maxxiblindsey were at my direction and personally dictated by me. I have reviewed the chart and agree that the record accurately reflects my personal performance of the history, physical exam, medical decision making, and the department course for this patient. I have also personally directed, reviewed, and agree with the discharge instructions and disposition. Disposition - Clinical Impression Clinical Impression: Rhinitis medicamentosa - Patient ED Disposition Is Patient to be Admitted: No Counseled Patient/Family Regarding: Studies Performed, Diagnosis, Need For Followup, Rx Given - Disposition Disposition: Routine/Home Disposition Time: 12:30 Condition: STABLE Prescriptions: Fluticasone Furoate [Flonase Sensimist] 2 sprays NS DAILY #2 bottle Instructions: Allergic Rhinitis (ED) Forms: [facility] ([place]an) - POA Present On Arrival: None
== END 2017-07-03 13:27 | disposition home or self-care (01) ==
LOC: H.ER 11:42
DX: J31.0 Chronic rhinitis (principal); G20 Parkinson's disease; I10 Essential (primary) hypertension; J44.9 Chronic obstructive pulmonary disease, unspecified; Z79.82 Long term (current) use of aspirin

== ENCOUNTER 2018-01-03 19:43 | Emergency (ER) | payer MEDICARE ==
[2018-01-03 19:43] VITALS: BMI 24.3
[2018-01-03 19:50] VITALS: PULSE 84; TEMP 97.5; O2SAT 96
--- NOTE | 2018-01-03 20:14 | ED PDOC ---
HPI: Nose Bleed Time Seen by Provider: 01/03/18 20:03 Chief Complaint (Nursing): ENT Problem Chief Complaint (Provider): nose bleed History Per: Patient, Family History/Exam Limitations: no limitations Onset/Duration Of Symptoms: Mins (30) Current Symptoms Are (Timing): Gone Now Location Of Bleeding: Right Nare Symptoms Have Been: Episodic Recent Aspirin Use: Yes (Last Taken) (81mg daily) Additional Complaint(s): 82 y/o male presents with daughter for evaluation of nose bleed x 30 mins. Patient states he was outside drinking a beer when bleeding started from right nare, which lasted approximately 30 minutes then resolved after sticking tissue up his nose. As per daughter, patient admits to history of nose bleeds due to nasal polyps, last ENT evaluation 9 months ago. Patient reports mild headache. Denies dizziness, extremity numbness/weakness, vision changes, chest pain, shortness of breath, palpitations. Past Medical History Reviewed: Historical Data, Nursing Documentation, Vital Signs Vital Signs: Last Vital Signs Temp 97.5 F L 01/03/18 19:46 Pulse 84 01/03/18 19:46 Resp 18 01/03/18 19:46 BP 174/89 H 01/03/18 19:46 Pulse Ox 96 01/03/18 19:46 - Medical History PMH: Asthma, COPD, HTN, Parkinson's Disease Denies: CHF, Chronic Kidney Disease - Surgical History Surgical History: No Surg Hx - Family History Family History: States: Unknown Family Hx - Home Medications Home Medications: Ambulatory Orders Medication Instructions Recorded Aspirin [Ecotrin] 81 mg PO DAILY 03/25/17 QUEtiapine [Seroquel] 25 mg PO DAILY 05/14/17 Albuterol 0.083% [Albuterol 0.083% 2.5 mg INH Q8 #1 05/17/17 Inhal Cuca (2.5 mg/3 ml) UD] Metoprolol Succinate [Toprol XL] 25 mg PO DAILY #30 tab 05/17/17 hydroCHLOROthiazide [Hydrodiuril] 25 mg PO DAILY #30 tab 05/17/17 Fluticasone/Salmeterol 250/50 1 puff IH Q12 #1 puff 05/18/17 [Advair Diskus 250/50] Prednisone 30 mg PO DAILY #20 tab.ds.pk 05/18/17 amLODIPine [Norvasc] 2.5 mg PO DAILY #30 tab 05/18/17 Fluticasone Furoate [Flonase 2 sprays NS DAILY #2 bottle 07/03/17 Sensimist] - Allergies Allergies/Adverse Reactions: Allergies Allergy/AdvReac Type Severity Reaction Status Date / Time No Known Allergies Allergy Verified 07/03/17 12:04 Review of Systems ROS Statement: Except As Marked, All Systems Reviewed And Found Negative ENT: Positive for: Nose Discharge (nose bleed) Physical Exam - Reviewed Nursing Documentation Reviewed: Yes Vital Signs Reviewed: Yes - Physical Exam Appears: Positive for: Well, Non-toxic, No Acute Distress Head Exam: Positive for: ATRAUMATIC, NORMAL INSPECTION, NORMOCEPHALIC Skin: Positive for: Normal Color Eye Exam: Positive for: Normal appearance ENT: Positive for: Normal ENT Inspection Cardiovascular/Chest: Positive for: Regular Rate, Rhythm Respiratory: Positive for: Normal Breath Sounds Gastrointestinal/Abdominal: Positive for: Normal Exam Back: Positive for: Normal Inspection Extremity: Positive for: Normal ROM Neurologic/Psych: Positive for: Alert, Oriented - Laboratory Results Result Diagrams: 01/03/18 20:27 01/03/18 20:27 - ECG O2 Sat by Pulse Oximetry: 96 - Progress ED Course And Treament: labs Patient given potassium PO for 3.2 level No nasal bleeding during ED eval Patient/daughter advised to follow up with ENT Return precautions given Disposition - Clinical Impression Clinical Impression: Epistaxis - Patient ED Disposition Is Patient to be Admitted: No Counseled Patient/Family Regarding: Studies Performed, Diagnosis, Need For Followup - Disposition Disposition: Routine/Home Disposition Time: 21:02 Condition: IMPROVED Instructions: Nosebleeds Forms: [facility] (Slovak)
[2018-01-03 20:39] LABS: BASO # 0.1 K/uL (0.0-0.2); BASO % 0.5 % (0.0-2.0); EOS # 1.3 K/uL (0.0-0.7); EOS % 13.7 % (0.0-4.0); HEMOGLOBIN 15.1 g/dL (12.0-18.0); LYMPH # 1.8 K/uL (1.0-4.3); LYMPH % 18.1 % (20.0-40.0); MEAN CELL VOLUME 96.7 fl (80.0-94.0); MEAN CORPUSCULAR HEMOGLOBIN 33.4 pg (27.0-31.0); MEAN CORPUSCULAR HGB CONC 34.6 g/dL (33.0-37.0); MEAN PLATELET VOLUME 8.2 fl (7.2-11.7); MONO # 0.8 K/uL (0.0-0.8); MONO % 8.1 % (0.0-10.0); NEUT # 5.8 K/uL (1.8-7.0); NEUT % 59.6 % (50.0-75.0); NRBC % 0.1 % (0.0-0.0); RBC 4.52 Mil/uL (4.40-5.90); RED CELL DISTRIBUTION WIDTH 13.9 % (11.5-14.5); WHITE BLOOD COUNT 9.7 K/uL (4.8-10.8)
[2018-01-03 20:47] LABS: ALB/GLOB RATIO 1.1 (1.0-2.1); ALBUMIN 4.6 g/dL (3.5-5.0); ALT/SGPT 42 U/L (21-72); AST/SGOT 45 U/L (17-59); BLOOD UREA NITROGEN 23 mg/dl (9-20); CALCIUM 9.2 mg/dL (8.4-10.2); GFR AFRICAN-AMERICAN > 60; GFR NON-AFRICAN AMERICAN 58
[2018-01-03] MEDS ORDERED: Potassium Chloride 20 mEq ER Tab PO ONE (20:52)
[2018-01-03 20:56] LABS: INR 1.1 (0.9-1.2); PARTIAL THROMBOPLASTIN TIME 38.3 Seconds (25.6-37.1); PROTHROMBIN TIME 11.9 Seconds (9.8-13.1)
[2018-01-03] MEDS: Potassium Chloride 20 mEq/15 ml LIQ UD PO STA (21:21)
[2018-01-03 21:28] VITALS: RESP 20
[2018-01-03 21:30] VITALS: BP 154/91
== END 2018-01-03 21:34 | disposition home or self-care (01) ==
LOC: H.ER 19:43
DX: R04.0 Epistaxis (principal); G20 Parkinson's disease; I10 Essential (primary) hypertension; J44.9 Chronic obstructive pulmonary disease, unspecified; Z79.82 Long term (current) use of aspirin